=== PATIENT | male | born 1970 | race Hispanic/Latino ===

== ENCOUNTER 2019-10-05 17:53 | Inpatient (IN) | payer SELFPAY ==
[~2019-10-05] VITALS: Ht 177.8 cm; Wt 97.8 kg
[2019-10-05 18:47] LABS: BASOPHILS % 0.4 % (0.0-1.0); EOSINOPHILS # (AUTO) 0.1 (0.0-0.4); EOSINOPHILS % 2.8 % (0.0-6.0); HEMATOCRIT 33.8 % (38.2-49.6); LYMPHOCYTES # (AUTO) 0.9 (1.0-3.2); LYMPHOCYTES % 30.9 % (18.0-39.1); MEAN CORPUSCULAR HEMOGLOBIN 34.4 pg (28-32); MEAN CORPUSCULAR HGB CONC 35.5 g/dL (31-35); MEAN CORPUSCULAR VOLUME 96.8 fL (81-99); MONOCYTES # (AUTO) 0.3 (0.2-0.8); MONOCYTES % 8.9 % (4.4-11.3); NEUTROPHILS # (AUTO) 1.6 (2.1-6.9); NEUTROPHILS % 56.6 % (38.7-80.0); RED BLOOD COUNT 3.49 x10e6/uL (4.3-5.7); RED CELL DISTRIBUTION WIDTH 15.7 % (11.7-14.4)
[2019-10-05 18:57] LABS: CLARITY,URINE CLEAR (CLEAR); COLOR,URINE ORANGE (YELLOW)
[2019-10-05 18:58] LABS: BILIRUBIN,URINE SMALL (NEGATIVE); KETONES,URINE NEGATIVE (NEGATIVE); LEUKOCYTE ESTERASE ,URINE NEGATIVE (NEGATIVE); NITRITE,URINE NEGATIVE (NEGATIVE); PROTEIN,URINE DIPSTICK NEGATIVE (NEGATIVE); URINE UROBILINOGEN 1 mg/dL (0.2 - 1)
[2019-10-05 19:08] LABS: PLATELET COUNT 15 x10e3/uL (140-360)
[2019-10-05 19:11] LABS: ALANINE AMINOTRANSFERASE 30 IU/L (0-55); ALBUMIN 3.4 g/dL (3.5-5.0); ALBUMIN/GLOBULIN RATIO 0.7 (0.8-2.0); ALKALINE PHOSPHATASE 86 IU/L (40-150); ANION GAP 12.6 mmol/L (8-16); BLOOD UREA NITROGEN 7 mg/dL (7-26); BUN/CREATININE RATIO 8 (6-25); CARBON DIOXIDE 24 mmol/L (22-29); CHLORIDE 105 mmol/L (98-107); CREATININE, SERUM 0.93 mg/dL (0.72-1.25); EST GLOMERULAR FILTRATION RATE > 60 ML/MIN (60-); GLUCOSE 99 mg/dL (74-118); POTASSIUM 3.6 mmol/L (3.5-5.1); SODIUM 138 mmol/L (136-145)
[2019-10-05 19:13] LABS: BACTERIA,URINE RARE /HPF; EPITHELIAL CELLS,URINE RARE /LPF; RBC,URINE 0-5 /HPF (0-5); WBC,URINE (MAN) 0-5 /HPF (0-5)
[2019-10-05] MEDS ORDERED: SODIUM CHLORIDE 0.9% 50ML 50 ML ONE (19:55)
[2019-10-05] MEDS ORDERED: IOPAMIDOL 370 MG/ML 200 ML INFUS..BTL INJ ONE (19:55)
[2019-10-05 19:58] LABS: RBC MORPHOLOGY COMMENT NORMAL
[2019-10-05 19:59] LABS: PLATELET ESTIMATE MARKEDLY DECREASED; PLATELET MORPHOLOGY COMMENT NORMAL
--- NOTE | 2019-10-05 21:59 | Diagnostic Imaging Report ---
EXAM: CT Abdomen and Pelvis WITH contrast INDICATION: Abdominal pain, purple hernia COMPARISON: None. TECHNIQUE: Abdomen and pelvis were scanned utilizing a multidetector helical scanner from the lung base to the pubic symphysis after administration of IV contrast. Coronal and sagittal reformations were obtained. Routine protocol was performed. Scan was performed when during portal venous phase. IV CONTRAST: 100 mL of Isovue 370 ORAL CONTRAST: None COMPLICATIONS: None RADIATION DOSE: Total DLP: 643 mGy*cm Estimated effective dose: (DLP x 0.015 x size factor) mSv CTDIvol has been reviewed. It is below the limits set by the Radiation Protocol Committee (RPC). Dose modulation, iterative reconstruction, and/or weight based adjustment of the mA/kV was utilized to reduce the radiation dose to as low as reasonably achievable. FINDINGS: LINES and TUBES: None. LOWER THORAX: Multifocal groundglass opacities in the lower lungs. HEPATOBILIARY: Nodular liver contour. A few subtle hypodense nodules in the right hepatic lobe, largest is in the lateral right hepatic dome measures 1.4 cm (series 2 image 16 No biliary ductal dilation. GALLBLADDER: There are cholecystectomy clips. SPLEEN: Splenomegaly, measures up to 18.3 cm. Subtle focal hyperdensity in the inferior aspect of the spleen is likely a benign vascular malformation such as a hemangioma. Trace perisplenic ascites. PANCREAS: No focal masses or ductal dilatation. ADRENALS: No adrenal nodules KIDNEYS/URETERS: Kidneys enhance symmetrically. No hydronephrosis. No cystic or solid mass lesions. No stones. GI TRACT: Dilated loops of small bowel in the midabdomen with focal small herniation of small bowel into a 4.3 cm ventral abdominal hernia where there is a transition point, distal to this point the small bowel is collapsed. No appendicitis. PELVIC ORGANS/BLADDER: Unremarkable. LYMPH NODES: No lymphadenopathy. VESSELS: Main portal vein dilation.. PERITONEUM / RETROPERITONEUM: No free air or fluid. BONES: Degenerative changes. SOFT TISSUES: Dilated loops of small bowel in the midabdomen with focal small herniation of small bowel into a 4.3 cm ventral abdominal hernia where there is a transition point, distal to this point the small bowel is collapsed. Trace fluid within the hernia sac. IMPRESSION: 1. Findings in the lower lungs are compatible with multifocal pneumonia, likely viral. 2. Findings concerning for small bowel obstruction due to small bowel containing ventral abdominal periumbilical hernia. Strangulation is possible though no direct evidence of intestinal ischemia. 3. Hepatic cirrhosis and portal hypertension with splenomegaly and trace ascites. A few hypodense nodules in the right hepatic lobe on a background of cirrhosis are indeterminate. Recommend nonemergent liver MRI with contrast for further evaluation. Signed by: Denis Layne DO on 10/05/2019 9:55 PM
--- NOTE | 2019-10-06 01:06 | Emergency Department Note ---
History of Present Illnes History of Present Illness Chief Complaint: Abdominal Complaints History of Present Illness This is a 49 year old male arrived to the ED with abdominal pain for several days worse after living a heavy case of water bottles. 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 Any updates have been documented here. Past Medical History Recent Fever: No Clinical Suspicion of Infectio: No New/Unexplained Change in Ment: No Past Medical History: None Other Medical History: Patient states the is seeing a liver MD Past Surgical History: Cholecysctectomy Social History Smoking Cessation: Former smoker Counseling Performed: No Alcohol Use: Occasional Any Illegal Drug Use: No Other Any Pre-Existing Lines (PICC,: No Review of Systems Review of Systems Constitutional: Reports no symptoms EENTM: Reports no symptoms Cardiovascular: Reports no symptoms Respiratory: Reports no symptoms Gastrointestinal: Reports as per HPI, Reports abdominal pain, Reports nausea Genitourinary: Reports no symptoms Musculoskeletal: Reports no symptoms Integumentary: Reports no symptoms Neurological: Reports no symptoms Psychological: Reports no symptoms Endocrine: Reports no symptoms Hematological/Lymphatic: Reports no symptoms Physical Exam Related Data Allergies: Coded Allergies: No Known Allergies (Unverified , 10/05/19) Triage Vital Signs Vital Signs Date Time Temp Pulse Resp B/P (MAP) Pulse Ox O2 Delivery O2 Flow Rate FiO2 10/05/19 18:20 97.3 66 18 155/84 99 Vital signs reviewed: Yes Physical Exam CONSTITUTIONAL Constitutional: Present well-developed, Present well-nourished HENT HENT: Present normocephalic, Present atraumatic, Present oropharynx clear/moist, Present nose normal HENT L/R: Present left ext ear normal, Present right ext ear normal EYES Eyes: Reports PERRL, Reports conjunctivae normal NECK Neck: Present ROM normal PULMONARY Pulmonary: Present effort normal, Present breath sounds normal CARDIOVASCULAR Cardiovascular: Present regular rhythm, Present heart sounds normal, Present capillary refill normal, Present normal rate GASTROINTESTINAL Abdominal: Present soft, Present bowel sounds normal, Present tender, Present other (nonreducible umbilical hernia noted with superimposed cellulitis) GENITOURINARY Genitourinary: Present exam deferred SKIN Skin: Present warm, Present dry MUSCULOSKELETAL Musculoskeletal: Present ROM normal NEUROLOGICAL Neurological: Present alert, Present oriented x 3, Present no gross motor or sensory deficits PSYCHOLOGICAL Psychological: Present mood/affect normal, Present judgement normal Results Laboratory Result Diagram: 10/05/19 1835 10/05/19 1835 Laboratory Laboratory Tests Test 10/05/19 22:40 10/05/19 18:35 White Blood Count 2.82 x10e3/uL (4.8-10.8) Red Blood Count 3.49 x10e6/uL (4.3-5.7) Hemoglobin 12.0 g/dL (14.0-18.0) Hematocrit 33.8 % (38.2-49.6) Mean Corpuscular Volume 96.8 fL (81-99) Mean Corpuscular Hemoglobin 34.4 pg (28-32) Mean Corpuscular Hemoglobin Concent 35.5 g/dL (31-35) Red Cell Distribution Width 15.7 % (11.7-14.4) Platelet Count 15 x10e3/uL (140-360) Neutrophils (%) (Auto) 56.6 % (38.7-80.0) Lymphocytes (%) (Auto) 30.9 % (18.0-39.1) Monocytes (%) (Auto) 8.9 % (4.4-11.3) Eosinophils (%) (Auto) 2.8 % (0.0-6.0) Basophils (%) (Auto) 0.4 % (0.0-1.0) Neutrophils # (Auto) 1.6 (2.1-6.9) Lymphocytes # (Auto) 0.9 (1.0-3.2) Monocytes # (Auto) 0.3 (0.2-0.8) Eosinophils # (Auto) 0.1 (0.0-0.4) Basophils # (Auto) 0.0 (0.0-0.1) Absolute Immature Granulocyte (auto 0.01 x10e3/uL (0-0.1) Platelet Estimate Markedly decreased Platelet Morphology Comment Normal Red Cell Morphology Comment Normal Urine Color [place] (YELLOW) Urine Clarity Clear (CLEAR) Urine pH 6 (5 - 7) Urine Specific [place] 1.025 (1.010-1.025) Urine Protein Negative (NEGATIVE) Urine Glucose (UA) Negative (NEGATIVE) Urine Ketones Negative (NEGATIVE) Urine Blood Negative (NEGATIVE) Urine Nitrite Negative (NEGATIVE) Urine Bilirubin Small (NEGATIVE) Urine Urobilinogen 1 mg/dL (0.2 - 1) Urine Leukocyte Esterase Negative (NEGATIVE) Urine RBC 0-5 /HPF (0-5) Urine WBC 0-5 /HPF (0-5) Urine Epithelial Cells Rare /LPF (NONE) Urine Bacteria Rare /HPF (NONE) Sodium Level 138 mmol/L (136-145) Potassium Level 3.6 mmol/L (3.5-5.1) Chloride Level 105 mmol/L (98-107) Carbon Dioxide Level 24 mmol/L (22-29) Anion Gap 12.6 mmol/L (8-16) Blood Urea Nitrogen 7 mg/dL (7-26) Creatinine 0.93 mg/dL (0.72-1.25) Estimat Glomerular Filtration Rate > 60 ML/MIN (60-) BUN/Creatinine Ratio 8 (6-25) Glucose Level 99 mg/dL (74-118) Calcium Level 9.0 mg/dL (8.4-10.2) Total Bilirubin 3.3 mg/dL (0.2-1.2) Aspartate Amino Transf (AST/SGOT) 53 IU/L (5-34) Alanine Aminotransferase (ALT/SGPT) 30 IU/L (0-55) Alkaline Phosphatase 86 IU/L (40-150) Total Protein 8.0 g/dL (6.5-8.1) Albumin 3.4 g/dL (3.5-5.0) Globulin 4.6 g/dL (2.3-3.5) Albumin/Globulin Ratio 0.7 (0.8-2.0) Lab results reviewed: Yes Imaging Imaging results reviewed: Yes Impressions IMPRESSION: 1. Findings in the lower lungs are compatible with multifocal pneumonia, likely viral. 2. Findings concerning for small bowel obstruction due to small bowel containing ventral abdominal periumbilical hernia. Strangulation is possible though no direct evidence of intestinal ischemia. 3. Hepatic cirrhosis and portal hypertension with splenomegaly and trace ascites. A few hypodense nodules in the right hepatic lobe on a background of cirrhosis are indeterminate. Recommend nonemergent liver MRI with contrast for further evaluation. Assessment & Plan Medical Decision Making MDM 49-year-old male arrives to ED with abdominal pain, negative umbilical hernia that is not reducible despite attempts made by me at bedside. Patient was noted to have a small bowel obstruction, Dr. GIL consult did at 2230- patient marked on the cytopenia. Patient will require aggressive fluid resuscitation, kept nothing by mouth, possibly going to the OR tomorrow. Assessment & Plan Final Impression: (1) COVID-19 (2) SBO (small bowel obstruction) (3) Thrombocytopenia Depart Disposition: ADMITTED Last Vital Signs Date Time Temp Pulse Resp B/P (MAP) Pulse Ox O2 Delivery O2 Flow Rate FiO2 10/05/19 22:34 97.0 69 19 143/74 100 Medications in the ED Sodium Chloride 50 ml @ ud STK-MED ONCE .ROUTE ; Start 10/05/19 at 19:55; Stop 10/05/19 at 19:48; Status DC Iopamidol 74,000 mg STK-MED ONCE INJ ; Start 10/05/19 at 19:55; Stop 10/05/19 at 19:49; Status DC JAKE GRIMM, Oct 06, 2019 01:06
[2019-10-06] MEDS ORDERED: SODIUM CHLORIDE 0.9% 250ML 250 ML ONE ×2 (02:00→19:34)
[2019-10-06] MEDS ORDERED: ONDANSETRON HCL INJ 2MG/ML 2ML 2 MG/ML VIAL IV PRN ×2 (05:30→15:00)
[2019-10-06] MEDS ORDERED: MORPHINE SULFATE 2 MG/ML SYR 1ML IV PRN ×2 (05:30→13:30)
--- NOTE | 2019-10-06 11:31 | NUR ---
GAVE PACKET OF INFORMATION WITH COMMUNITY [employer]OURCES FOR ASSISTANCE WITH LOW TO NO INCOME TO PATIENT. RESOURCES THAT PATIENT MAY BE ABLE TO FOLLOW UP UPON DISCHARGE. PT EDUCATED ON EACH RESOURCE AND UNDERSTANDING HOW TO FOLLOW UP TO SEE IF QUALIFIED FOR EACH RESOURCE.
[2019-10-06] MEDS ORDERED: BACITRACIN 50,000 UNIT VIAL ONE (12:29)
[2019-10-06] MEDS ORDERED: BUPIVACAINE HCL 0.5% INJ 30 ML VIAL INJ ONE (12:29)
--- NOTE | 2019-10-06 12:58 | Consultation ---
DATE OF CONSULTATION: 10/06/2019 HISTORY OF PRESENT ILLNESS: The patient is a 49-year-old male presents with complaints of pain in the abdomen that has started after lifting yesterday. He was doing heavy lifting and developed pain with some associated nausea. He says he had a bowel movement yesterday. He says the pains persisted. He has not had similar symptoms in the past. He came to the emergency room where CT of the abdomen and pelvis revealed findings suggestive of small bowel obstruction with incarcerated umbilical hernia. PAST MEDICAL HISTORY: Significant for history of liver disease, says he has seen the liver specialists. CT also suggested cirrhosis of the liver. PAST SURGICAL HISTORY: He has had previous cholecystectomy. MEDICATIONS: There were no current medications. ALLERGIES: NO KNOWN ALLERGIES. FAMILY HISTORY: Noncontributory. SOCIAL HISTORY: The patient is a former smoker, he says he does not smoke now. Formerly heavy drinker, but says he does not drink anymore. REVIEW OF SYSTEMS: As stated above. He has had no fever, no cough, no shortness of breath. PHYSICAL EXAMINATION: GENERAL: The patient is awake and alert, in no distress. VITAL SIGNS: Normal. He is not tachycardic. HEENT: Sclerae is not icteric. NECK: Supple. No masses. LUNGS: Equal breath sounds are clear bilaterally. CARDIAC: Regular rate and rhythm with no murmur. ABDOMEN: Soft. There is tender mass in the umbilicus with some overlying discoloration. There are no signs of peritonitis. EXTREMITIES: Have no edema. There are some slight venous stasis changes. NEUROLOGIC: Grossly intact. LABORATORY DATA: White blood count 2.8. Hemoglobin and hematocrit are normal. Platelet counts only 15,000. Chemistries essentially normal. CT of the abdomen and pelvis as stated in the history of present illness. ASSESSMENT: This is a 49-year-old male, incarcerated umbilical hernia, also thrombocytopenia likely due to his liver disease. There was some concern for being COVID positive and the rapid test was positive also. However, with the patient's intestinal obstruction and incarcerated hernia, he will need surgery, the plan is scheduled for later this morning. Procedure was explained to the patient including risks, benefits and alternatives. He understands, he has had the opportunity to ask questions. Thank you for asking me to see Mr. Strong. Juanjose W MD KRYSTAL Terry/KELVIN /[id number]
[2019-10-06 13:00] LABS: INR 1.46; PROTHROMBIN TIME 18.7 seconds (11.9-14.5)
[2019-10-06] MEDS ORDERED: ACETAMINOPHEN 325 MG TAB PO PRN (13:30)
[2019-10-06] MEDS ORDERED: HYDRALAZINE HCL 20 MG/ML VIAL IV PRN (13:30)
[2019-10-06] MEDS ORDERED: LACTATED RINGER'S 1,000 ML INJ ONE (13:45)
[2019-10-06] MEDS ORDERED: LACTATED RINGER'S 1,000 ML ONE (13:53)
[2019-10-06] MEDS: CEFTRIAXONE SOD 1 GM/NS 50 ML 50 ML IV SCH (14:10)
[2019-10-06] MEDS ORDERED: GLYCOPYRROLATE INJ 0.2 MG/ML VIAL ONE (14:16)
[2019-10-06] MEDS ORDERED: SEVOFLURANE INHAL SOLN 250 ML PEN BTL ONE (14:16)
[2019-10-06] MEDS ORDERED: ROCURONIUM BROMIDE 10 MG/ML 5ML VIAL IV ONE (14:16)
[2019-10-06] MEDS ORDERED: LIDOCAINE HCL 2% LOCAL INJ 5 ML SDV VIAL INJ ONE (14:16)
[2019-10-06] MEDS ORDERED: CEFTRIAXONE SOD 1 GM VIAL ONE (14:16)
[2019-10-06] MEDS ORDERED: NEOSTIGMINE 1 MG/ML 10ML VIAL ONE (14:16)
[2019-10-06] MEDS ORDERED: SUCCINYLCHOLINE CHLORIDE 20 MG/ML 10ML VIAL ONE (14:16)
[2019-10-06] MEDS ORDERED: PROPOFOL IV EMULSION 10 MG/ML 20 ML VIAL ONE (14:16)
[2019-10-06] MEDS ORDERED: LABETALOL HCL 5 MG/ML 20ML VIAL ONE (14:16)
[2019-10-06] MEDS ORDERED: ONDANSETRON HCL INJ 2MG/ML 2ML 2 MG/ML VIAL ONE (14:16)
[2019-10-06] MEDS ORDERED: DEXAMETHASONE SOD PHOS INJ 4 MG/ML VIAL ONE ×2 (14:16→15:14)
[2019-10-06] MEDS ORDERED: HYDROCODONE/APAP 5MG-325MG TAB PO PRN (15:00)
[2019-10-06] MEDS ORDERED: MORPHINE SULFATE INJ 4 MG/ML INJ 1ML IV PRN (15:00)
[2019-10-06] MEDS ORDERED: FENTANYL CITRATE/PF 100MCG/2 ML INJ ONE (15:22)
[2019-10-06] MEDS ORDERED: EPINEPHRINE HCL 1:1000 1ML 1 MG/ML AMP ONE (15:40)
[2019-10-06] MEDS ORDERED: MEPERIDINE HCL INJ 25 MG/ML VIAL ONE (16:00)
[2019-10-06 16:30] VITALS: BP 123/74
--- NOTE | 2019-10-06 16:30 | NUR ---
Pt received from PACU at this time. Pt is aox3 and able to verbalize needs. Denies any pain at this time. Dressing to lower abdomen is intact, with old blood noted. Breaths are even and unlabored on 3L/NC. 0 s/s of acute distress noted.
[2019-10-06] MEDS: ASCORBIC ACID 500 MG TAB PO SCH (17:30)
[2019-10-06] MEDS: SODIUM CHLORIDE 0.9% 1000ML 1,000 ML IV SCH (17:30)
--- NOTE | 2019-10-06 18:48 | NUR ---
Spoke with Dr. Beltrán to get clarification on new order for platelet infusion. Received orders to redraw platelet level and call him with results.
--- NOTE | 2019-10-06 18:55 | Consultation ---
DATE OF CONSULTATION: HISTORY OF PRESENT ILLNESS: This is a 49-year-old who comes to the emergency room with abdominal pain for several days after lifting heavy cases of bottles. The patient came to the emergency room where he was admitted. The patient apparently has no past medical history or past surgical history. The patient when he first came his white count was 2.8, hemoglobin 12, hematocrit 33. His sodium 138, potassium 3.6, creatinine 0.93. His COVID-19 came back positive, so I was asked to see him. He had CAT scan of abdomen and pelvis, which showed multifocal pneumonia and small bowel obstruction due to small bowel periumbilical hernia. PHYSICAL EXAMINATION: GENERAL: Currently, alert and oriented, does not seem to be in acute distress. VITAL SIGNS: Stable, afebrile. His O2 saturation 99 on room air. HEENT: He is not icteric. NECK: Supple. CHEST: Clear. HEART: S1 and S2. ABDOMEN: Soft. IMPRESSION: 1. Small bowel obstruction, COVID-19 pneumonia. Our recommendation is Rocephin 1 g daily, Zithromax 5 mg daily. There is no need for Decadron, Lovenox at a 0.5 mg/kg q.12 hours. Surgical evaluation, n.p.o., NG tube to low intermittent suction. 2. Liver cirrhosis. 3. Portal hypertension. 4. Splenomegaly. 5. Concern about alcoholism. We will give the patient droplet and contact isolation. We will follow. MD DRAKE Salinas/KELVIN /[id number]
--- NOTE | 2019-10-06 19:30 | NUR ---
Notified Dr Beltrán regarding platelets 39. New orders received.
[2019-10-06 20:00] VITALS: BP 132/81
--- NOTE | 2019-10-06 20:10 | History and Physical ---
CHIEF COMPLAINT: Ventral abdominal hernia, abdominal pain. HISTORY OF PRESENT ILLNESS: A 49-year-old male with history of alcohol abuse, liver cirrhosis, splenomegaly secondary to his alcohol liver cirrhosis, presented to the ED after lifting some heavy boxes on yesterday, noticed some pain with nausea in the abdomen area, found to have an incarcerated hernia on arrival here to the ED. He states that the pain was pretty persistent. He has had this problem before. General Surgery evaluated the patient this morning. The patient is scheduled for the OR later this afternoon. During my evaluation, the patient was alert, awake, and oriented on examination. He did receive Jumbo platelets due to low platelet level. He was found to have COVID-19 positive. REVIEW OF SYSTEMS: Pertinent positive for abdominal pain. The rest of 14-point review of systems are reviewed with the patient and are negative. ALLERGIES: NO KNOWN DRUG ALLERGIES. HOME MEDICATIONS: None. PAST MEDICAL HISTORY: Liver cirrhosis, splenomegaly. PAST SURGICAL HISTORY: Reports, none. FAMILY HISTORY: Hypertension, diabetes. SOCIAL HISTORY: Former drinker. Said he does not drink anymore. No drugs. PHYSICAL EXAMINATION: VITAL SIGNS: Temperature is 96.9, pulse 90, respiratory rate 15, blood pressure 129/71, and pulse ox 97% on room air. GENERAL: No acute distress. Alert and oriented x3. PULMONARY: Clear to auscultation bilaterally. No wheezing, rales, or rhonchi. No crackles appreciated. CARDIOVASCULAR: Positive S1, S2. No murmurs, rubs, or gallops. ABDOMEN: Soft, nondistended, nontender to palpation. Bowel sounds present. MUSCULOSKELETAL: Strength is 5/5 throughout. No evidence of any muscle deficits on examination. No weakness appreciated. NEUROLOGICAL: Cranial nerves II through XII are grossly intact. No evidence of any neurological deficits on exam. SKIN: Intact. Warm to touch. Good cap refill. PSYCHIATRIC: Normal affect and mood. EXTREMITIES: No edema. Good range of motion throughout. LABORATORY DATA: White count 2.8, hemoglobin 12, hematocrit 33.8, and platelets was 15, now 57 after transfusion. PT 18.7, INR 1.46. Sodium 138, potassium 3.6, chloride 105, bicarb 24, anion gap of 12, BUN is 7, creatinine is 0.93, glucose 99, calcium is 9. Total bilirubin is 3.3, AST 53, ALT 30. Alk phos is 86. Total protein is 8, albumin is 3.4. Urinalysis; negative. SEROLOGY: Coronavirus was positive. DIAGNOSTIC STUDIES: CT abdomen and pelvis shows compatible with multifocal pneumonia, likely viral. Findings concerning for small bowel obstruction due to small bowel containing ventral abdominal periumbilical hernia. Strangulation is a possible to no direct evidence of intestinal ischemia. Hepatic cirrhosis and portal hypertension with splenomegaly and trace ascites. A few hypodense nodules in the right hepatic lobe is alcohol liver cirrhosis are indeterminate. He has an appointment to see a GI specialist as an outpatient. IMPRESSION: 1. Incarcerated umbilical hernia. 2. Chronic thrombocytopenia, secondary to liver cirrhosis. 3. Coronavirus positive. 4. Alcoholic liver cirrhosis with splenomegaly. PLAN: Plan at this time, the patient had received 2 units of Jumbo platelets with much improved platelets now after a stat level was 57. Coagulation also shows a PT of 18.7 and INR 1.46. He is n.p.o. for now. IV fluids for surgery later today. Dr. Robin has been consulted. In terms of his Coronavirus, I did go ahead and consult with Pulmonary and ID. I will go ahead and place him on some IV antibiotics as well. He currently looks very well, seems to be very symptomatic in nature. We will continue with same plan of care and monitor very closely with the rest of consultants. MD YORDY Castro/KELVIN /[id number]
--- NOTE | 2019-10-06 20:50 | Consultation ---
DATE OF CONSULTATION: Pulmonary Critical Care Consultation CHIEF COMPLAINT: Positive COVID test. HISTORY OF PRESENT ILLNESS: The patient is a 49-year-old man. He has a history of cirrhosis and thrombocytopenia. He came today for an elective hernia repair. He was subsequently discovered to have COVID-19 positive. He denies any cough or shortness of breath. He is not having any chest pain. He denies fevers. PAST MEDICAL HISTORY: 1. Cirrhosis. 2. Thrombocytopenia. PAST SURGICAL HISTORY: Recent hernia repair. ALLERGIES: NO KNOWN DRUG ALLERGIES. SOCIAL HISTORY: The patient is not an active smoker. He is not an active drinker. PHYSICAL EXAMINATION: VITAL SIGNS: The patient is afebrile. The vital signs are stable. HEENT: Shows no facial swelling or erythema. CARDIAC: Reveals regular rate and rhythm with normal S1 and S2. LUNGS: Auscultation of lungs reveals rhonchorous breath sounds bilaterally. There is no wheezing. ABDOMEN: Soft and nontender. There is no rebound or guarding. EXTREMITIES: Shows no leg edema or calf tenderness. There is no cyanosis or clubbing. SKIN: Shows no rashes. NEUROLOGICAL: Shows no focal abnormalities. LABORATORY DATA: Platelet count is 39, white blood cell count is 2.8, and the hemoglobin is 12. The BUN to creatinine ratio is normal. The other electrolytes are within normal limits. INR is 1.46. RADIOGRAPHIC DATA: CT scan of the abdomen and pelvis shows findings in the lower lobe compatible with multifocal pneumonia. The patient also has hepatic cirrhosis and portal hypertension. He has some splenomegaly. He also has a periumbilical hernia that had possible strangulation. This test was done preoperatively. IMPRESSION: 1. COVID-19 and viral pneumonia. 2. Status post hernia repair for strangulated hernia. 3. Cirrhosis. PLAN: 1. Wean oxygen as tolerated. 2. Since the patient is asymptomatic for COVID at this time, dexamethasone is not indicated. 3. Hold off on antibiotics for now since the patient is asymptomatic. 4. Continue postoperative care. 5. Continue current treatment for cirrhosis and thrombocytopenia. Kartik Linares MD [facility]/BLAKEL /[id number]
--- NOTE | 2019-10-06 21:05 | Operative Report ---
DATE OF PROCEDURE: 10/06/2019 SURGEON: Juanjose Terry MD PREOPERATIVE DIAGNOSES: Incarcerated umbilical hernia, small bowel obstruction. POSTOPERATIVE DIAGNOSES: Incarcerated umbilical hernia, small bowel obstruction. PROCEDURES: Repair of incarcerated umbilical hernia with release of small bowel obstruction. WATER SYSTEMS DESIGNER: None. ANESTHESIA: General endotracheal. INDICATIONS AND FINDINGS: The patient is a 49-year-old male, who presented with complaints of abdominal pain with nausea and vomiting, with pain at the site of his umbilicus. Workup revealed small bowel obstruction, secondary to incarcerated umbilical hernia. At Surgery, the patient was found to have small bowel incarcerated within the hernia. The bowel once it was freed from the hernia was found to be viable, and reduced in the peritoneal cavity. The fascial defect was about 1.5 cm, which was repaired. TECHNIQUE: After adequate general endotracheal anesthesia, the patient is in supine position, the abdomen was prepped and draped in sterile fashion with ChloraPrep solution. Transverse first incision was made inferior to the umbilicus, carried down through subcutaneous tissue. The umbilicus was dissected free from the herniated mass, herniated mass was dissected free down to the fascia, free from the fascia completely throughout circumference of the hernia defect, which was about 1.5 cm. Hernia sac was opened. There was some clear serous fluid within hernia sac, which was drained. There was also small bowel within the hernia sac, which was incarcerated in order to free the small bowel the fascial defect was extended to the left and also somewhat to the right, so the bowel could be delivered up into the wound. The bowel which appeared somewhat ischemic once it was freed from the fascial defect and not constricted anymore the bowel color improved becoming pink and was all the bowel appeared viable. There was one seromuscular tear on the anti-mesenteric border of the bowel, this was repaired with interrupted sutures of 3-0 Vicryl and the bowel was returned to the peritoneal cavity. The hernia sac was then closed with running suture of 3-0 Vicryl. Hernia sac was then reduced beneath the fascia. The fascia was then closed transversely with a running suture of #0 Prolene. Hemostasis of the wound was seen to be adequate. The wound was then infiltrated with 0.5% Marcaine. The umbilicus was sutured to the fascia using 3-0 Vicryl. The subcutaneous tissue was closed with running suture of 3-0 Vicryl. Skin was closed with lissa. Sterile dressings applied. The patient tolerated the procedure well. Estimated blood loss was 5 mL. There were no complications. All counts were correct and the patient was taken to the recovery room in satisfactory condition. MD KRYSTAL Lanza/MODL /[id number] cc: Peggy Beltrán MD
[2019-10-07] VITALS (7 sets, daily range): BP systolic 111–127; BP diastolic 62–73
[2019-10-07] MEDS: SODIUM CHLORIDE 0.9% 1000ML 1,000 ML IV SCH ×2 (04:47→20:24)
[2019-10-07 05:48] LABS: HEMATOCRIT 27.3 % (38.2-49.6); HEMOGLOBIN 10.5 g/dL (14.0-18.0); LYMPHOCYTES # (AUTO) 0.4 (1.0-3.2); MEAN CORPUSCULAR HEMOGLOBIN 38.7 pg (28-32); MEAN CORPUSCULAR HGB CONC 38.5 g/dL (31-35); MEAN CORPUSCULAR VOLUME 100.7 fL (81-99); MONOCYTES # (AUTO) 0.2 (0.2-0.8); MONOCYTES % 6.8 % (4.4-11.3); NEUTROPHILS # (AUTO) 2.9 (2.1-6.9); NEUTROPHILS % 81.9 % (38.7-80.0); PLATELET COUNT 50 x10e3/uL (140-360); RED BLOOD COUNT 2.71 x10e6/uL (4.3-5.7); RED CELL DISTRIBUTION WIDTH 15.3 % (11.7-14.4)
[2019-10-07 06:37] LABS: ALANINE AMINOTRANSFERASE 25 IU/L (0-55); ALBUMIN 2.9 g/dL (3.5-5.0); ALBUMIN/GLOBULIN RATIO 0.7 (0.8-2.0); ALKALINE PHOSPHATASE 67 IU/L (40-150); ANION GAP 11.5 mmol/L (8-16); BLOOD UREA NITROGEN 8 mg/dL (7-26); BUN/CREATININE RATIO 10 (6-25); CALCIUM 8.4 mg/dL (8.4-10.2); CARBON DIOXIDE 24 mmol/L (22-29); CHLORIDE 109 mmol/L (98-107); EST GLOMERULAR FILTRATION RATE > 60 ML/MIN (60-); GLUCOSE 138 mg/dL (74-118); POTASSIUM 3.5 mmol/L (3.5-5.1); SODIUM 141 mmol/L (136-145)
[2019-10-07] MEDS: ASCORBIC ACID 500 MG TAB PO SCH ×2 (07:59→15:22)
[2019-10-07 08:20] LABS: PLATELET ESTIMATE MODERATELY DECREASED; PLATELET MORPHOLOGY COMMENT FEW EDTA CLUMPING
[2019-10-07 08:21] LABS: ANISOCYTOSIS SLIGHT; OVALOCYTES FEW; TEAR DROP CELLS FEW
[2019-10-07 08:22] LABS: RBC MORPHOLOGY COMMENT NORMAL
--- NOTE | 2019-10-07 13:59 | Progress Note ---
DATE: 10/07/2019 Medicine Progress Note SUBJECTIVE: The patient underwent umbilical hernia repair yesterday. He is currently doing well with no complaints. No overnight events. OBJECTIVE: VITAL SIGNS: He is afebrile, normotensive. Respiratory rate is good. He is on room air actually. GENERAL: Not in acute distress. Alert and oriented x3. Cooperative on examination. HEENT: Head is normocephalic and atraumatic. Eyes; pupils are reactive to light bilaterally. Extraocular movements intact bilaterally. Throat; no evidence of erythema or exudates in the posterior pharynx. Has poor dentition. NECK: Supple. Good range of motion. PULMONARY: Clear to auscultation bilaterally. No wheezing, no rales, no rhonchi, no crackles appreciated. CARDIOVASCULAR: Positive S1 and S2. No murmurs, rubs, or gallops appreciated. ABDOMEN: Soft, nondistended, and nontender to palpation. Bowel sounds present. SKIN: Intact, warm to touch. Good cap refill. PSYCHIATRIC: Normal affect and mood. EXTREMITIES: No edema. Good range of motion throughout. LABORATORY DATA: White count 3.5, hemoglobin 10.5, hematocrit is 27, and platelets of 50. PT 18. INR 1.46. Chemistry; sodium 141, potassium 3.5, chloride 109, bicarb 24, anion gap of 11, BUN is 8, creatinine is 0.8, glucose 138, calcium is 8.4, AST 35, ALT 25, alkaline phosphatase 67, total protein is 7, albumin is 2.9. IMPRESSION: 1. Status post incarcerated umbilical hernia repair with release of small-bowel obstruction, performed on 10/06/2019. 2. COVID-19 pneumonia. 3. Alcoholic liver cirrhosis with splenomegaly. 4. Chronic thrombocytopenia, secondary to liver cirrhosis. PLAN: At this time, the patient is on a full liquid diet. Pain is controlled. His labs reviewed. This is likely his baseline. From a Coronavirus standpoint, Pulmonary, and ID cleared the patient for discharge. Awaiting General Surgery, likely discharge tomorrow. Continue same plan of care. Discussed with nursing staff. MD YORDY Castro/MODDerrell /[id number]
[2019-10-07] MEDS: CEFTRIAXONE SOD 1 GM/NS 50 ML 50 ML IV SCH (15:22)
--- NOTE | 2019-10-07 16:53 | NUR ---
Nutrition Screen Note RD Recommendation for Physician: - As feasible, ADAT to goal of Low Sodium GI Soft diet Plan of Care: RD following, monitoring for tolerance and adequacy Nutrition reason for involvement: Nutrition risk trigger Primary Diagnose(s): SBO, thrombocytopenia, incarcerated hernia, + Covid-19 PMH: liver cirrhosis, splenomegaly Ht: 70 in Wt: 217 lb BMI: 31.1 kg/m2 IBW: [address] Assessment: 10/06: 49 YOM admitted for SBO and thrombocytopenia found to have an incarcerated hernia and Covid-19. Pt evaluated today per SMT screen. Attempted to call pt on room phone, no answer- unable to obtain hx at this time. No reported wt loss on admit per H&P. Pt tolerating CLD and having BMs s/p hernia repair. Labs and meds reviewed. Chart reviewed. Will continue to monitor. Current Diet: Clear liquids x day 1 Malnutrition Evaluation (10/07/19) The patient does not meet criteria for a specified degree of malnutrition at this time. Will re-evaluate at follow-up as appropriate. Unable to assess 2/2 current isolation protocol. Diet Education Needs Assessment: Diet education not indicated currently, pt on transitional diet. Diet tolerance: tolerating CLD Nutrition Care Level: low Signed: Antoinette Mckee RD, LD, [facility]
--- NOTE | 2019-10-07 19:46 | Progress Note ---
DATE: SUBJECTIVE: The patient has no new complaints. He does not complain of any headache or neck pain. He is not complaining of cough or dyspnea. PHYSICAL EXAMINATION: VITAL SIGNS: The patient is afebrile. The blood pressure is 118/63 and saturation is 100%. HEENT: Shows no facial swelling or erythema. CARDIAC: Reveals regular rate and rhythm with normal S1 and S2. LUNGS: Auscultation of lungs reveals decreased breath sounds at the bases. There is no wheezing. ABDOMEN: Soft and nontender. There is no rebound or guarding. EXTREMITIES: Shows no leg edema or calf tenderness. There is no cyanosis or clubbing. SKIN: Shows no rashes. NEUROLOGICAL: Shows no focal abnormalities. LABORATORY DATA: Platelet count is 50 and hemoglobin is 10.5. Electrolytes are within normal limits. IMPRESSION: 1. COVID-19 and viral pneumonia. 2. Status post hernia repair for strangulated hernia. 3. Cirrhosis. 4. Thrombocytopenia. 5. Anemia, unspecified. PLAN: 1. The patient remains asymptomatic for COVID at this time. No medical treatment is indicated unless he develops symptoms. 2. Continue current regimen for cirrhosis. 3. Await clearance from General Surgery prior to discharge. Kartik Linares MD [facility]/MODL /[id number]
[2019-10-08] VITALS: BP 106/66
[2019-10-08 04:00] VITALS: BP 118/64
[2019-10-08 06:00] LABS: EOSINOPHILS % 0.5 % (0.0-6.0); HEMATOCRIT 26.2 % (38.2-49.6); LYMPHOCYTES # (AUTO) 0.8 (1.0-3.2); LYMPHOCYTES % 18.5 % (18.0-39.1); MEAN CORPUSCULAR HEMOGLOBIN 37.6 pg (28-32); MEAN CORPUSCULAR HGB CONC 38.2 g/dL (31-35); MEAN CORPUSCULAR VOLUME 98.5 fL (81-99); MONOCYTES # (AUTO) 0.4 (0.2-0.8); MONOCYTES % 8.5 % (4.4-11.3); NEUTROPHILS # (AUTO) 3.1 (2.1-6.9); NEUTROPHILS % 71.8 % (38.7-80.0); RED BLOOD COUNT 2.66 x10e6/uL (4.3-5.7); RED CELL DISTRIBUTION WIDTH 15.3 % (11.7-14.4)
[2019-10-08 06:12] LABS: ANION GAP 10.4 mmol/L (8-16); BLOOD UREA NITROGEN 7 mg/dL (7-26); BUN/CREATININE RATIO 10 (6-25); CARBON DIOXIDE 26 mmol/L (22-29); CHLORIDE 110 mmol/L (98-107); CREATININE, SERUM 0.68 mg/dL (0.72-1.25); EST GLOMERULAR FILTRATION RATE > 60 ML/MIN (60-); GLUCOSE 107 mg/dL (74-118); POTASSIUM 3.4 mmol/L (3.5-5.1); SODIUM 143 mmol/L (136-145)
[2019-10-08 06:41] LABS: PLATELET COUNT 49 x10e3/uL (140-360)
--- NOTE | 2019-10-08 06:45 | NUR ---
Left message for Dr Beltrán for lab alert: Platelets 49. Also left message for potassium 3.4. Awaiting call back.
--- NOTE | 2019-10-08 07:00 | NUR ---
RECEIVED BEDSIDE SHIFT REPORT FROM MEDICAL ASSISTANT RN. PT DENIES NEEDS AT THIS TIME.
[2019-10-08 08:22] VITALS: BP 125/71
[2019-10-08 08:27] VITALS: BP 125/71
[2019-10-08] MEDS: ASCORBIC ACID 500 MG TAB PO SCH ×2 (08:43→18:05)
[2019-10-08 12:17] VITALS: BP 119/72
[2019-10-08] MEDS: CEFTRIAXONE SOD 1 GM/NS 50 ML 50 ML IV SCH (13:39)
[2019-10-08 16:00] VITALS: BP 119/73
[2019-10-08] MEDS: SODIUM CHLORIDE 0.9% 1000ML 1,000 ML IV SCH (16:26)
--- NOTE | 2019-10-08 16:40 | Progress Note ---
DATE: SUBJECTIVE: The patient is still not having cough. He has no fever or dyspnea. PHYSICAL EXAMINATION: VITAL SIGNS: The blood pressure is 119/72 and the pulse is 66. Saturation is 98%. HEENT: Shows no facial swelling or erythema. CARDIAC: Reveals regular rate and rhythm with normal S1 and S2. LUNGS: Auscultation of lungs reveals clear breath sounds bilaterally. There is no wheezing. ABDOMEN: Soft and nontender. There is no rebound or guarding. EXTREMITIES: Shows no leg edema or calf tenderness. There is no cyanosis or clubbing. SKIN: Shows no rashes. NEUROLOGICAL: Shows no focal abnormalities. LABORATORY DATA: White blood cell count is 4.3 and the hemoglobin is 10. The platelet count is 49. The BUN to creatinine ratio is 7 to 0.68 and the potassium is 3.4. IMPRESSION: 1. COVID-19 and viral pneumonia. 2. Status post hernia repair for a strangulated hernia. 3. Cirrhosis. 4. Thrombocytopenia. PLAN: 1. The patient remains asymptomatic from a COVID perspective at this time. 2. Await clearance from General Surgery prior to discharge. Kartik Linares MD [facility]/MODL /[id number]
[2019-10-08] MEDS ORDERED: ULTRAM50 MG PO (16:44)
[2019-10-08] MEDS ORDERED: LACTULOSE20 GM/30 M PO (16:45)
--- NOTE | 2019-10-08 17:35 | Discharge Summary ---
FINAL DISCHARGE DIAGNOSES: 1. Status post incarcerated umbilical hernia repair with release of small-bowel obstruction performed on 10/06/2019, by Dr. Robin, General Surgeon. 2. COVID-19 pneumonia-asymptomatic. 3. Alcoholic liver cirrhosis with splenomegaly. 4. Chronic thrombocytopenia, secondary to liver cirrhosis. CONSULTANTS: General Surgery, ID, Pulmonary. PHYSICAL EXAMINATION: VITAL SIGNS: Temperature is 98, pulse 66, respirations is 14, blood pressure 119/72, and pulse ox 98% on room air. LABORATORY DATA: Labs show white count 4, hemoglobin 10, hematocrit 26, and platelets of 49, chronic. Chemistry; sodium 143, potassium 3.4, replaced; chloride 110, bicarb 26, anion gap of 10, BUN is 7, creatinine is 0.68, calcium is 8. Total bilirubin is 3.2, AST 35, ALT 25, alkaline phosphatase 67, total protein 7. Coronavirus was positive. IMAGING STUDIES: CT abdomen and pelvis shows multifocal pneumonia, viral in nature. Small bowel obstruction due to small bowel containing ventral abdominal periumbilical hernia. Hepatic cirrhosis noted with portal hypertension and splenomegaly with trace ascites noted. He also has few hypodense nodules in the right hepatic lobe in the background of cirrhosis are indeterminate. He does have an appointment to see his outpatient GI specialist as well he reports to me. I reported to him that this is very important to follow up on all of these findings found on these imaging studies and he verbalized understanding. HOSPITAL COURSE: A 49-year-old male, comes into the ED with complaints of abdominal pain, found to have a periumbilical hernia, needing prompt evaluation and surgical intervention. The patient underwent status post incarcerated umbilical hernia repair with release of small-bowel obstruction on 10/06/2019, by Dr. Robin, General Surgery. The patient did well postprocedurally with no complaints. Pain was well controlled. In fact, he was using very little pain medications. The patient was ambulating with no issues. He was advised with no heavy lifting until he follows up with General Surgery in about 2 weeks' time in his office. The patient otherwise was doing well from that standpoint. He was found to have COVID-19 on general screening. The patient is asymptomatic. He has no cough. No congestion. No fever. He is not on oxygen. He is on room air. I did consult with Pulmonary and ID, they recommended the patient to be discharged to home for now and close followup as an outpatient in the office for repeat COVID-19 testing. On discharge, the patient was doing well, back to normal baseline with no complaints. On the day of discharge, vital signs were stable, labs were reviewed and stable. The patient is seen and evaluated, and examined thoroughly on the day of discharge. No other complaints. The patient verbalized understanding and agrees to plan of care to follow up accordingly as an outpatient with the primary care physician in 1 week, General Surgery in about 10 days for further evaluation and management, and postop followup. The patient verbalized understanding and agrees to plan of care. The patient has been cleared for discharge by all consultants. MEDICATIONS: See med reconciliation form. DISPOSITION: Home. CONDITION: Stable. DIET: Heart healthy. In the event of worsening symptoms, the patient was advised to come back to the ED for further evaluation. Discharge summary took greater than 35 minutes. MD YORDY Castro/KELVIN /[id number]
--- NOTE | 2019-10-09 18:06 | Progress Note ---
DATE: SUBJECTIVE: Mr. Strong is doing well. He underwent medical hernia repair, doing well. No complaints. REVIEW OF SYSTEMS: HEENT: Negative. PULMONARY: Negative. CARDIAC: Negative. PHYSICAL EXAMINATION: GENERAL: He is currently alert and oriented. VITAL SIGNS: Stable, currently afebrile. HEENT: He is not icteric. NECK: Supple. CHEST: Clear. LABORATORY DATA: Platelets are low, but slowly coming up to 50. Sodium 141, potassium 3.5, creatinine 0.8. IMPRESSION: 1. COVID-19 on admission, clinically doing well, asymptomatic, no need for treatment. Continue with droplet isolation. 2. Splenomegaly, liver cirrhosis and thrombocytopenia. 3. Small bowel obstruction, status post surgery. From Infectious Disease point of view, the patient can be discharged once he is fit by surgery, can discontinue Rocephin, as he clinically looks good. MD DRAKE Salinas/KELVIN /[id number]
== END 2019-10-08 18:35 | disposition home or self-care (01) | DRG 329 ==
LOC: ER 18:04 → ERHOLD 22:21 → UNDOADMIN 22:21 → ERHOLD 10-06 01:47 → UNDOADMIN 10-06 01:47 → OR 10-06 13:07 → IMCU 10-06 16:59
PROVIDERS: ADMIT Surgery; ATTEND Surgery
PROC: 0DN80ZZ Release Small Intestine, Open Approach (ICD-10-PCS; 2019-10-06)
PROC: 30233R1 Transfusion of Nonautologous Platelets into Peripheral Vein, Percutaneous Approach (ICD-10-PCS; 2019-10-06)
PROC: 8E0ZXY6 Isolation (ICD-10-PCS; 2019-10-06)
PROC: 0DQ80ZZ Repair Small Intestine, Open Approach (ICD-10-PCS; 2019-10-06)
PROC: 0WQF0ZZ Repair Abdominal Wall, Open Approach (ICD-10-PCS; principal; 2019-10-06 11:30)
DX: K43.6 Other and unspecified ventral hernia with obstruction, without gangrene (principal); U07.1 COVID-19; J12.9 Viral pneumonia, unspecified; K76.6 Portal hypertension; R16.1 Splenomegaly, not elsewhere classified; D69.59 Other secondary thrombocytopenia; K70.31 Alcoholic cirrhosis of liver with ascites; F10.20 Alcohol dependence, uncomplicated
CPT/HCPCS: 36415; 74177; 80048; 80053; 81001; 85025; 85049; 85610; 86850; 86870; 86880; 86900; 86905; 86945; 93005; 99001; 99284; J0171; J0330; J0696; J1100; J2001; J2175; J2270; J2405; J2710; J3010; J7030; J7050; J7121; P9034; Q9967; U0002

== ENCOUNTER 2019-11-24 11:39 | Inpatient (IN) | payer SELFPAY ==
[~2019-11-24] VITALS: Ht 177.8 cm; Wt 88.9 kg
[~2019-11-24 11:39] MED LIST: LACTULOSE20 GM/30 M PO; ULTRAM50 MG PO
[2019-11-24] MEDS ORDERED: ONDANSETRON HCL INJ 2MG/ML 2ML 2 MG/ML VIAL IV STA (12:26)
[2019-11-24] MEDS ORDERED: SODIUM CHLORIDE 0.9% 1000ML 1,000 ML IV STA (12:26)
[2019-11-24] MEDS ORDERED: PANTOPRAZOLE 40 MG 10ML VIAL IV STA (12:26)
--- OUTSIDE RECORDS SUMMARY | 2019-11-24 12:37 | XMS REPORT | Clinical Summary ---
Author Author [facility] Address Unknown Phone Unavailable Care Team Providers Care Telesales Supervisor Name Role Phone PCP Unavailable Allergies Not on File Medications Not on file Active Problems Not on file Social History Date Tobacco Use Types Packs/Day Years Used Never Assessed Sex Assigned at Date Recorded Not on file Industry Job Start Date Occupation Not on file Not on file Not on file Travel End Travel History Travel Start No recent travel history available. Last Filed Vital Signs Not on file Plan of Treatment Not on file Results Not on fileafter 11/23/2018
--- OUTSIDE RECORDS SUMMARY | 2019-11-24 12:37 | XMS REPORT | Continuity of Care Document ---
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 Role Phone NO, PCP PCP Unavailable Phu GRIMM Attphys Unavailable Payers Payer Name Policy Type Policy Number Effective Date Expiration Date S jazmin Covid 19 Hrsa Uninsured [id number] C [facility] Problems Condition Name Condition Details Condition Category Status Onset Date Resolution Date Last Treatment Date Treating Clinician Comments Source Small bowel obstruction Problem Active [facility] Thrombocytopenia Problem Active [facility] Infection due to severe acute respiratory syndrome coronavir us 2 (SARS-CoV-2) Problem Active [facility] Allergies, Adverse Reactions, Alerts This patient has no known allergies or adverse reactions. Social History Social Habit Start Date Stop Date Quantity Comments Source Sex Assigned At [facility] Medications Ordered Medication Name Filled Medication Name Start Date Stop Da te Current Medication? Ordering Clinician Indication Dosage Frequency Signature (SIG) Comments Components Source Lactulose Lactulose Yes 30 Twice A Day [facility] Tramadol Hcl (Ultram) 50 Mg TABLET Tramadol Hcl (Ultram) 50 Mg TABLET Yes 50 Every 8 Hours as needed for Moderate Pain (4-6) [facility] Vital Signs Vital Name Observation Time Observation Value Comments Source Body Temperature 2019-10-08 16:00:00 97.9 [degF] [facility] Weight 2019-10-08 09:00:00 215.56 [lb_av] [facility] BMI (Body Mass Index) 2019-10-08 09:00:00 30.9 kg/m2 [facility] Procedures Procedure Date / Time Performed Performing Clinician Sourc e Computed tomography of abdomen and pelvis with contrast 00:00:00 [facility] Plan of Care Planned Activity Planned Date Details Comments Source Instructions Abdominal Pain - Adult [facility] Instructions Constipation - Adult [facility] Encounters Start Date/Time End Date/Time Encounter Type Admission Type Attendi [facility] Facility Care Department Encounter ID Source 2019-10-06 16:59:00 2019-10-08 18:35:00 Discharged Inpatient 1 JAKE GRIMM [facility] [id number] [facility] 2019-09-10 13:18:00 2019-09-10 13:18:00 Emergency E [id number] [facility] Results Test Description Test Time Test Comments Results Result Comments Source Blood leukocytes automated count (number/volume) 2019-10-08 05:30:00 Test Item White Blood Count (test code = 6690-2) 4.33 4.8-10.8 [facility] automated count (number/volume)2019-10-08 05:30:00* Test Item Value Reference Range Interpretation Comments Red Blood Count (test code = 789-8) 2.66 4.3-5.7 [facility]Blood hemoglobin measurement (moles/volume)2019-10-08 05:30:00* Test Item Value Reference Range Interpretation Comments Hemoglobin (test code = 09143-0) 10.0 14.0-18.0 [facility] CenterAutomated blood hematocrit (volume fraction)2019-10-08 05:30:00* Test Item Value Reference Range Interpretation Comments Hematocrit (test code = 4544-3) 26.2 38.2-49.6 [facility] CenterAutomated erythrocyte mean corpuscular smlssc9460-29-04 05:30:00* Test Item Value Reference Range Interpretation Comments Mean Corpuscular Volume (test code = 787-2) 98.5 81-99 [facility] CenterAutomated erythrocyte mean corpuscular hemoglobin (mass per erythrocyte)2019-10-08 05:30:00* Test Item Value Reference Range Interpretation Comments Mean Corpuscular Hemoglobin (test code = 785-6) 37.6 28-32 [facility] CenterAutomated erythrocyte mean corpuscular hemoglobin concentration measurement (mass/volume)2019-10-08 05:30:00* Test Item Value Reference Range Interpretation Comments Mean Corpuscular Hemoglobin Concent (test code = 786-4) 38.2 31-35 [facility] CenterRDW YsuVp-Kxo8295-53-15 05:30:00* Test Item Value Reference Range Interpretation Comments Red Cell Distribution Width (test code = 18280-1) 15.3 11.7 -14.4 [facility] CenterAutomated blood platelet count (count/volume)2019-10-08 05:30:00* Test Item Value Reference Range Interpretation Comments Platelet Count (test code = 777-3) 49 140-360 Results repeated and called to Yina Wise at 0637 on 10/08/19 by Kacey Arita . Read back and verified.[facility] CenterAutformerly [facility] segmented neutrophil count as percentage of total afhowusjwg4013-23-51 05:30:00 * Test Item Value Reference Range Interpretation Comments Neutrophils (%) (Auto) (test code = 08662-0) 71.8 38.7-80.0 [facility]Aut[facility] lymphocyte count as percentage ot total ytbidahret1275-18-44 05:30:00* Test Item Value Reference Range Interpretation Comments Lymphocytes (%) (Auto) (test code = 736-9) 18.5 18.0-39.1 [facility] CenterAutomated blood monocyte count as percentage of total egfbvxgddi6337-30-89 05:30:00* Test Item Value Reference Range Interpretation Comments Monocytes (%) (Auto) (test code = 5905-5) 8.5 4.4-11.3 [facility] CenterAutomated blood eosinophil count as percentage of total oduwvqjhqw2966-29-73 05:30:00* Test Item Value Reference Range Interpretation Comments Eosinophils (%) (Auto) (test code = 713-8) 0.5 0.0-6.0 [facility] CenterAutomated blood basophil count as percentage of total njrzfpndle4578-04-12 05:30:00* Test Item Value Reference Range Interpretation Comments Basophils (%) (Auto) (test code = 706-2) 0.0 0.0-1.0 [facility] CenterFluoroscopic procedure less than one hour ccdkmeks7246-80-94 05:30:00* Test Item Value Reference Range Interpretation Comments IM GRANULOCYTES % (test code = IM GRANULOCYTES %) 0.7 0.0- 1.0 [facility] CenterAutomated blood neutrophil count 2019-10-08 05:30:00* Test Item Value Reference Range Interpretation Comments Neutrophils # (Auto) (test code = 751-8) 3.1 2.1-6.9 [facility] CenterBlood lymphocytes count (number/volume) 2019-10-08 05:30:00* Test Item Value Reference Range Interpretation Comments Lymphocytes # (Auto) (test code = 98268-2) 0.8 1.0-3.2 [facility] CenterBlood monocytes automated count (number/volume)2019-10-08 05:30:00* Test Item Value Reference Range Interpretation Comments Monocytes # (Auto) (test code = 742-7) 0.4 0.2-0.8 [facility] CenterAutomated blood eosinophil count 2019-10-08 05:30:00* Test Item Value Reference Range Interpretation Comments Eosinophils # (Auto) (test code = 711-2) 0.0 0.0-0.4 [facility] CenterAutomated blood basophil count (count/volume)2019-10-08 05:30:00* Test Item Value Reference Range Interpretation Comments Basophils # (Auto) (test code = 704-7) 0.0 0.0-0.1 [facility] CenterFluoroscopic procedure less than one hour cxtthizp0495-78-31 05:30:00* Test Item Value Reference Range Interpretation Comments Absolute Immature Granulocyte (auto (eric t code = Absolute Immature Granulocyte (auto) 0.03 0-0.1 [facility]uda[facility]um or plasma sodium measurement (moles/volume)2019-10-08 05:30:00* Test Item Value Reference Range Interpretation Comments Sodium Level (test code = 2951-2) 143 136-145 [facility]udaerum or plasma potassium measurement (moles/volume)2019-10-08 05:30:00* Test Item Value Reference Range Interpretation Comments Potassium Level (test code = 2823-3) 3.4 3.5-5.1 [facility]udaerum or plasma chloride measurement (moles/volume)2019-10-08 05:30:00* Test Item Value Reference Range Interpretation Comments Chloride Level (test code = 2075-0) 110 98-107 [facility] Budaerum or plasma carbon dioxide, total measurement (moles/volume)2019-10-08 05:30:00* Test Item Value Reference Range Interpretation Comments Carbon Dioxide Level (test code = 2028-9) 26 22-29 [facility] Budaerum or plasma anion rgl8821-29-17 05:30:00* Test Item Value Reference Range Interpretation Comments Anion Gap (test code = 82076-5) 10.4 8-16 [facility]udaerum or plasma urea nitrogen measurement (mass/volume)2019-10-08 05:30:00* Test Item Value Reference Range Interpretation Comments Blood Urea Nitrogen (test code = 3094-0) 7 7-26 [facility]udaerum or plasma creatinine measurement (mass/volume)2019-10-08 05:30:00* Test Item Value Reference Range Interpretation Comments Creatinine (test code = 2160-0) 0.68 0.72-1.25 [facility]udaerum or plasma urea nitrogen/creatinine mass jtzak4167-68-93 05:30:00* Test Item Value Reference Range Interpretation Comments BUN/Creatinine Ratio (test code = 3097-3) 10 6-25 [facility] CenterEstimated glomerular filtration rate (GFR) rinehbwiccgvo4805-35-21 05:30:00* Test Item Value Reference Range Interpretation Comments Estimat Glomerular Filtration Rate (test code = 072178471) > 60 >60 Ranges were taken from the National Kidney Disease Education Program and the [facility] Foundation literature.Reference ranges:60 or greater: Lvpsjb53-89 ( for 3 consecutive months): Chronic kidney disease 15 or less: Kidney failureShannon Medical CenterGlucose igdjbattjbh2571-96-01 05:30:00* Test Item Value Reference Range Interpretation Comments Glucose Level (test code = NPC1602) 107 74-118 [facility]udaerum or plasma calcium measurement (mass/volume)2019-10-08 05:30:00* Test Item Value Reference Range Interpretation Comments Calcium Level (test code = 69391-0) 8.0 8.4-10.2 [facility] CenterBlood platelets count by estimate (number/volume)2019-10-07 05:25:00* Test Item Value Reference Range Interpretation Comments Platelet Estimate (test code = 56746-9) MODERATELY DECREASED [facility] CenterPlatelet zefucwwdve6960-90-14 05:25:00* Test Item Value Reference Range Interpretation Comments Platelet Morphology Comment (test code = 27775-9) FEW EDTA CLUMPING [facility] CenterBlood anisocytosis detection by light xbuljfqaod5354-91-75 05:25:00* Test Item Value Reference Range Interpretation Comments Anisocytosis (test code = 702-1) SLIGHT [facility] CenterBlood dacrocytes detection by light ntaktnwqkv2857-75-42 05:25:00* Test Item Value Reference Range Interpretation Comments Tear Drop Cells (test code = 7791-7) FEW [facility] CenterBlood ovalocytes detection by light tvauvcuwsc4823-88-81 05:25:00* Test Item Value Reference Range Interpretation Comments Ovalocytes (test code = 774-0) FEW [facility] CenterRBC ihwfjbcuwm3960-03-90 05:25:00* Test Item Value Reference Range Interpretation Comments Red Cell Morphology Comment (test code = 6742-1) NORMAL [facility]udaerum or plasma total bilirubin measurement (mass/volume)2019-10-07 05:25:00* Test Item Value Reference Range Interpretation Comments Total Bilirubin (test code = 1975-2) 3.2 0.2-1.2 [facility] CenterFluoroscopic procedure less than one hour tniuhodg5355-97-94 05:25:00* Test Item Value Reference Range Interpretation Comments Aspartate Amino Transf (AST/SGOT) (test code = Aspartate Amino Transf (AST/SGOT)) 35 5-34 [facility] Budaerum or plasma alanine aminotransferase measurement (enzymatic activity/volume)2019-10-07 05:25:00* Test Item Value Reference Range Interpretation Comments Alanine Aminotransferase (ALT/SGPT) (test code = 1742-6) 25 0-55 [facility] Budaerum or plasma protein measurement (mass/volume)2019-10-07 05:25:00* Test Item Value Reference Range Interpretation Comments Total Protein (test code = 2885-2) 7.0 6.5-8.1 [facility]udaerum or plasma albumin measurement (mass/volume)2019-10-07 05:25:00* Test Item Value Reference Range Interpretation Comments Albumin (test code = 1751-7) 2.9 3.5-5.0 [facility] CenterPlasma globulin measurement (mass/volume) 2019-10-07 05:25:00* Test Item Value Reference Range Interpretation Comments Globulin (test code = 50490-3) 4.1 2.3-3.5 [facility]udaerum or plasma albumin/globulin mass qzmmi2085-43-88 05:25:00* Test Item Value Reference Range Interpretation Comments Albumin/Globulin Ratio (test code = 1759-0) 0.7 0.8-2.0 [facility]udaerum or plasma alkaline phosphatase measurement (enzymatic activity/volume)2019-10-07 05:25:00* Test Item Value Reference Range Interpretation Comments Alkaline Phosphatase (test code = 6768-6) 67 40-150 [facility] CenterProthrombin time (PT) in platelet poor plasma by coagulation citfm7498-06-37 12:26:00* Test Item Value Reference Range Interpretation Comments Prothrombin Time (test code = 5902-2) 18.7 11.9-14.5 [facility] CenterINR in Platelet poor plasma by Coagulation smmfh8722-98-06 12:26:00* Test Item Value Reference Range Interpretation Comments Prothromb Time International Ratio (test code = 6301-6) 1.46 Oral Anticoagulant Therapy INR Values:1. Low Intensity Therapy 1.5 - 2.02 . Moderate Intensity Therapy 2.0 - 3.03. High Intensity Therapy(1) 2.5 - 3. 54. High Intensity Therapy(2) 3.0 - 4.05. Panic Value INR > 5.0 [facility] CenterFluoroscopic procedure less than one hour nmchigui1428-00-71 22:40:00* Test Item Value Reference Range Interpretation Comments Coronavirus (PCR) (test code = Coronavirus (PCR)) DETECTED NOTD ETECTED SARS-COV2/RT-PCRResults are for the detection of SARS-COV-2 RNA. The SARS-COV-2 RNA is generally detectable in nasopharyngeal swab specimens during the acute ph ase of infection. Positive results are indicitive of active infection with SARS- COV-2; clinical correlation with patient history and other diagnostic informatio n is necessary to determine patient infection status. Positive results do not ru le out bacterial infection or co-infection with other viruses. The agent detecte d may not be the definite cause of the disease.The limit of detection for this a ssay is 250 copies/mLThe SARS-CoV-2 test is a rapid, real-time RT-PCR test inten ded for the qualitative detection of nucleic acid from SARS-CoV-2 in nasopharyng eal swab specimen collected from individuals suspected of COVID-19 by their [facility] provider. This test has not been Food and Drug Administration (FDA) clear ed or approved and has been authorized by FDA under an Emergency Use Authorizati on (EUA). This EUA will be effective until the declaration that circumstances ex ist justifying the authorization of the emergency use of in vitro diagnostic eric t for detection and or diagnosis of COVID-19 is terminated under section 564(b) of the Act, or the the EUA is revoked under 564(g) of the ACT.Testing performed by [facility] [place] [id number] Medical CenterCT ABDOMEN/PELVIS I3073-04-04 21:47:00 [place] [address] Patient Name: FIONA GREEN MR #: [id number] : 1970 Age/Sex: 49/M Req #: [id number] Adm Physician: Ordered by: JAKE GRIMM DO Report #: [id number] Location: ER R o/Bed: Procedure: [id number] CT/CT ABD OMEN/PELVIS W Exam Date: 10/05/19 Exam Time: 2014 REPORT STATUS: Signed EXAM: CT Abd omen and Pelvis WITH contrast INDICATION: Abdominal pain, purple hernia COMPARISON: None. TECHNIQUE: Abdomen and pelvis were scanned utilizing a m PayTouchtector helical scanner from the lung base to the pubic symphysis after a dministration of IV contrast. Coronal and sagittal reformations were obtained. Routine protocol was performed. Scan was performed when during portal venous phase. IV CONTRAST: 100 mL of Isovue 370 ORAL CONTRAST: None COMPLICATIONS: None RADIATION DOSE: Total DLP: 643 m Gy*cm Estimated effective dose: (DLP x 0.015 x size factor) mSv CT DIvol has been reviewed. It is below the limits set by the Radiation Protocol Committee (RPC). Dose modulation, iterative reconstruction, and/or weight based adjustment of the mA/kV was utilized to reduce the radiation dose to as low as reasonably achievable. FINDINGS: LINES and TUBES: None. LOWER THORAX: Multifocal groundglass opacities in the lower lungs. H EPATOBILIARY: Nodular liver contour. A few subtle hypodense nodules in the ri ght hepatic lobe, largest is in the lateral right hepatic dome measures 1.4 cm (series 2 image 16 No biliary ductal dilation. GALLBLADDER: There are cho lecystectomy clips. SPLEEN: Splenomegaly, measures up to 18.3 cm. Subt le focal hyperdensity in the inferior aspect of the spleen is likely a benign vascular malformation such as a hemangioma. Trace perisplenic ascites. PA NCREAS: No focal masses or ductal dilatation. ADRENALS: No adrenal nodule s KIDNEYS/URETERS: Kidneys enhance symmetrically. No hydronephrosis. N o cystic or solid mass lesions. No stones. GI TRACT: Dilated loops of small bowel in the midabdomen with focal small herniation of small bowel in to a 4.3 cm ventral abdominal hernia where there is a transition point, distal to this point the small bowel is collapsed. No appendicitis. PELVIC ORGA NS/BLADDER: Unremarkable. LYMPH NODES: No lymphadenopathy. VESSELS: Ma in portal vein dilation.. PERITONEUM / RETROPERITONEUM: No free air or flui d. BONES: Degenerative changes. SOFT TISSUES: Dilated loops of small b owel in the midabdomen with focal small herniation of small bowel into a 4.3 c m ventral abdominal hernia where there is a transition point, distal to this p oint the small bowel is collapsed. Trace fluid within the hernia sac. IMPRESSION: 1. Findings in the lower lungs are compatible with m ultifocal pneumonia, likely viral. 2. Findings concerning for small awa l obstruction due to small bowel containing ventral abdominal periumbilical he rnia. Strangulation is possible though no direct evidence of intestinal ischem ia. 3. Hepatic cirrhosis and portal hypertension with splenomegaly and tra ce ascites. A few hypodense nodules in the right hepatic lobe on a background of cirrhosis are indeterminate. Recommend nonemergent liver MRI with contrast for further evaluation. Signed by: Denis Layne DO on 10/05/2019 9:55 P M Dictated By: DENIS LAYNE DO 54 Transcribed By: CHRISTIANO on 10/05/192154 COPY T O: JAKE GRIMM DO Urine color knvtgcshjoodo7514-55-57 18:35:00* Test Item Value Reference Range Interpretation Comments Urine Color (test code = 5778-6) ORANGE YELLOW [facility] CenterUrine ywnrocm4096-93-24 18:35:00* Test Item Value Reference Range Interpretation Comments Urine Clarity (test code = 30022-6) CLEAR CLEAR [facility] Budapecific gravity of Urine by Test strip 2019-10-05 18:35:00* Test Item Value Reference Range Interpretation Comments Urine Specific Dwight (test code = 5811-5) 1.025 1.010-1.02 5 [facility] CenterUrine pH measurement by automated test fionp6424-89-14 18:35:00* Test Item Value Reference Range Interpretation Comments Urine pH (test code = 39671-8) 6 5-7 [facility] CenterUrine leukocyte esterase detection by lwvwhhuo4598-20-00 18:35:00* Test Item Value Reference Range Interpretation Comments Urine Leukocyte Esterase (test code = 5799-2) NEGATIVE NEGATIVE [facility] CenterUrine nitrite lxqkmcdca4201-43-70 18:35:00* Test Item Value Reference Range Interpretation Comments Urine Nitrite (test code = 42406-9) NEGATIVE NEGATIVE [facility] CenterUrine protein measurement by test strip (mass/volume)2019-10-05 18:35:00* Test Item Value Reference Range Interpretation Comments Urine Protein (test code = 5804-0) NEGATIVE NEGATIVE [facility] CenterUrine glucose bdppxvcdp6010-67-57 18:35:00* Test Item Value Reference Range Interpretation Comments Urine Glucose (UA) (test code = 2349-9) NEGATIVE NEGATIVE [facility] CenterUrine ketones detection by automated test fxohl4869-01-57 18:35:00* Test Item Value Reference Range Interpretation Comments Urine Ketones (test code = 91481-3) NEGATIVE NEGATIVE [facility] CenterUrine urobilinogen measurement by test strip (mass/volume)2019-10-05 18:35:00* Test Item Value Reference Range Interpretation Comments Urine Urobilinogen (test code = 56209-1) 1 0.2-1 [facility] CenterUrine total bilirubin measurement (mass/volume)2019-10-05 18:35:00* Test Item Value Reference Range Interpretation Comments Urine Bilirubin (test code = 1978-6) SMALL NEGATIVE [facility] CenterUrine erythrocytes xshysqunu2802-73-19 18:35:00* Test Item Value Reference Range Interpretation Comments Urine Blood (test code = 58608-5) NEGATIVE NEGATIVE [facility] CenterAutomated urine sediment leukocyte count by microscopy (number/high power field)2019-10-05 18:35:00* Test Item Value Reference Range Interpretation Comments Urine WBC (test code = 5821-4) 0-5 0-5 [facility] CenterErythrocytes detection in urine sediment by light yhpgqlljrr9420-09-06 18:35:00* Test Item Value Reference Range Interpretation Comments Urine RBC (test code = 67815-1) 0-5 0-5 [facility] CenterBacteria detection in urine sediment by light kncotddyij6908-41-16 18:35:00* Test Item Value Reference Range Interpretation Comments Urine Bacteria (test code = 45407-0) RARE NONE [facility] CenterEpithelial cells detection in urine sediment by light kadswopdxy2417-48-81 18:35:00* Test Item Value Reference Range Interpretation Comments Urine Epithelial Cells (test code = 43434-2) RARE NONE [facility]
[2019-11-24 13:51] LABS: BASOPHILS % 0.3 % (0.0-1.0); EOSINOPHILS # (AUTO) 0.1 (0.0-0.4); HEMOGLOBIN 10.8 g/dL (14.0-18.0); LYMPHOCYTES # (AUTO) 0.8 (1.0-3.2); LYMPHOCYTES % 22.2 % (18.0-39.1); MEAN CORPUSCULAR HEMOGLOBIN 32.5 pg (28-32); MEAN CORPUSCULAR HGB CONC 33.8 g/dL (31-35); MEAN CORPUSCULAR VOLUME 96.4 fL (81-99); MONOCYTES # (AUTO) 0.3 (0.2-0.8); MONOCYTES % 8.2 % (4.4-11.3); NEUTROPHILS # (AUTO) 2.3 (2.1-6.9); RED BLOOD COUNT 3.32 x10e6/uL (4.3-5.7); RED CELL DISTRIBUTION WIDTH 14.9 % (11.7-14.4)
[2019-11-24 13:57] LABS: INR 1.47; PLATELET COUNT 40 x10e3/uL (140-360); PROTHROMBIN TIME 18.7 seconds (11.9-14.5)
[2019-11-24 13:58] LABS: PARTIAL THROMBOPLASTIN TIME 39.8 seconds (23.8-35.5)
[2019-11-24 14:10] LABS: ALANINE AMINOTRANSFERASE 24 IU/L (0-55); ALBUMIN 3.6 g/dL (3.5-5.0); ALBUMIN/GLOBULIN RATIO 0.9 (0.8-2.0); ALKALINE PHOSPHATASE 87 IU/L (40-150); ANION GAP 18.2 mmol/L (8-16); BLOOD UREA NITROGEN 8 mg/dL (7-26); BUN/CREATININE RATIO 11 (6-25); CALCIUM 8.5 mg/dL (8.4-10.2); CARBON DIOXIDE 21 mmol/L (22-29); CHLORIDE 104 mmol/L (98-107); CREATINE KINASE 36 IU/L (30-200); CREATININE, SERUM 0.75 mg/dL (0.72-1.25); EST GLOMERULAR FILTRATION RATE > 60 ML/MIN (60-); GLUCOSE 113 mg/dL (74-118); POTASSIUM 3.2 mmol/L (3.5-5.1); SODIUM 140 mmol/L (136-145)
[2019-11-24] MEDS ORDERED: LIDOCAINE HCL 2% LOCAL INJ 5 ML SDV VIAL INJ ONE (14:34)
[2019-11-24] MEDS ORDERED: METOCLOPRAMIDE HCL 10 MG/2ML VIAL ONE (14:34)
[2019-11-24] MEDS ORDERED: OCTREOTIDE ACETATE 0.05 MG/ML AMP IV STA (14:59)
[2019-11-24] MEDS ORDERED: FUROSEMIDE INJ 10 MG/ML 2 ML VIAL IV PRN (15:00)
[2019-11-24] MEDS ORDERED: SODIUM CHLORIDE 0.9% 250ML 250 ML IV ONE (15:00)
[2019-11-24 15:05] LABS: PLATELET ESTIMATE MARKEDLY DECREASED; PLATELET MORPHOLOGY COMMENT FEW EDTA CLUMPING; RBC MORPHOLOGY COMMENT NORMAL
[2019-11-24] MEDS ORDERED: SODIUM CHLORIDE 0.9% 1000ML 1,000 ML IV SCH (15:15)
--- NOTE | 2019-11-24 15:26 | Emergency Department Note ---
History of Present Illnes History of Present Illness Chief Complaint: Abdominal Complaints History of Present Illness This is a 49 year old male 0230 AM PATIENT BEGAN HAVING BRIGHT RED STOOLS THAT HAVE NOW BECOME MAROON IN COLOR X [address] GIL'S OFFICE AND TOLD TO GO TO [facility] Historian: Patient Arrival Mode: Car Crystalizer Operator Required: No Onset (how long ago): hour(s) Location: RECTAL Quality: BLEED Radiation: Reports non-radiation Severity: moderate Onset quality: sudden Timing of current episode: intermittent Progression: waxing and waning Chronicity: new Context: Denies recent illness Relieving factors: none Exacerbating factors: none Associated symptoms: Reports denies other symptoms Past Medical/Family History Physician Review I have reviewed the patient's past medical and family history. Any updates have been documented here. Past Medical History Recent Fever: No Clinical Suspicion of Infectio: No New/Unexplained Change in Ment: No Past Medical History: Hypertension, Liver Disease Other Medical History: Alcohol abuse, portal hypertension, CIRRHOSIS Past Surgical History: Cholecysctectomy, Hernia Repair Social History Smoking Cessation: Current every day smoker Alcohol Use: Daily Any Illegal Drug Use: No TB Exposure/Symptoms: No Physically hurt or threatened: No Family History Family history of heart diseas: No Other Any Pre-Existing Lines (PICC,: No Review of Systems Review of Systems Constitutional: Reports no symptoms EENTM: Reports no symptoms Cardiovascular: Reports no symptoms Respiratory: Reports no symptoms Gastrointestinal: Reports as per HPI Genitourinary: Reports no symptoms Musculoskeletal: Reports no symptoms Integumentary: Reports no symptoms Neurological: Reports no symptoms Psychological: Reports no symptoms Endocrine: Reports no symptoms Hematological/Lymphatic: Reports no symptoms Physical Exam Related Data Allergies: Coded Allergies: No Known Allergies (Unverified , 10/05/19) Triage Vital Signs Vital Signs Date Time Temp Pulse Resp B/P (MAP) Pulse Ox O2 Delivery O2 Flow Rate FiO2 11/24/19 12:13 98.3 88 18 124/74 100 Room Air Vital signs reviewed: Yes Physical Exam CONSTITUTIONAL Constitutional: Present well-developed, Present well-nourished HENT HENT: Present normocephalic, Present atraumatic, Present oropharynx clear/moist, Present nose normal HENT L/R: Present left ext ear normal, Present right ext ear normal EYES Eyes: Reports PERRL, Reports conjunctivae normal NECK Neck: Present ROM normal PULMONARY Pulmonary: Present effort normal, Present breath sounds normal CARDIOVASCULAR Cardiovascular: Present regular rhythm, Present heart sounds normal, Present capillary refill normal, Present normal rate GASTROINTESTINAL Abdominal: Present soft, Present nontender, Present bowel sounds normal GENITOURINARY Genitourinary: Present exam deferred SKIN Skin: Present warm, Present dry MUSCULOSKELETAL Musculoskeletal: Present ROM normal NEUROLOGICAL Neurological: Present alert, Present oriented x 3, Present no gross motor or sensory deficits PSYCHOLOGICAL Psychological: Present mood/affect normal, Present judgement normal Results Laboratory Result Diagram: 11/24/19 1225 11/24/19 1225 Laboratory Laboratory Tests Test 11/24/19 12:25 White Blood Count 3.42 x10e3/uL (4.8-10.8) Red Blood Count 3.32 x10e6/uL (4.3-5.7) Hemoglobin 10.8 g/dL (14.0-18.0) Hematocrit 32.0 % (38.2-49.6) Mean Corpuscular Volume 96.4 fL (81-99) Mean Corpuscular Hemoglobin 32.5 pg (28-32) Mean Corpuscular Hemoglobin Concent 33.8 g/dL (31-35) Red Cell Distribution Width 14.9 % (11.7-14.4) Platelet Count 40 x10e3/uL (140-360) Neutrophils (%) (Auto) 67.0 % (38.7-80.0) Lymphocytes (%) (Auto) 22.2 % (18.0-39.1) Monocytes (%) (Auto) 8.2 % (4.4-11.3) Eosinophils (%) (Auto) 2.0 % (0.0-6.0) Basophils (%) (Auto) 0.3 % (0.0-1.0) Neutrophils # (Auto) 2.3 (2.1-6.9) Lymphocytes # (Auto) 0.8 (1.0-3.2) Monocytes # (Auto) 0.3 (0.2-0.8) Eosinophils # (Auto) 0.1 (0.0-0.4) Basophils # (Auto) 0.0 (0.0-0.1) Absolute Immature Granulocyte (auto 0.01 x10e3/uL (0-0.1) Platelet Estimate Markedly decreased Platelet Morphology Comment Few edta clumping Red Cell Morphology Comment Normal Prothrombin Time 18.7 seconds (11.9-14.5) Prothromb Time International Ratio 1.47 Activated Partial Thromboplast Time 39.8 seconds (23.8-35.5) Sodium Level 140 mmol/L (136-145) Potassium Level 3.2 mmol/L (3.5-5.1) Chloride Level 104 mmol/L (98-107) Carbon Dioxide Level 21 mmol/L (22-29) Anion Gap 18.2 mmol/L (8-16) Blood Urea Nitrogen 8 mg/dL (7-26) Creatinine 0.75 mg/dL (0.72-1.25) Estimat Glomerular Filtration Rate > 60 ML/MIN (60-) BUN/Creatinine Ratio 11 (6-25) Glucose Level 113 mg/dL (74-118) Calcium Level 8.5 mg/dL (8.4-10.2) Total Bilirubin 4.1 mg/dL (0.2-1.2) Aspartate Amino Transf (AST/SGOT) 54 IU/L (5-34) Alanine Aminotransferase (ALT/SGPT) 24 IU/L (0-55) Alkaline Phosphatase 87 IU/L (40-150) Creatine Kinase 36 IU/L (30-200) Creatine Kinase MB 1.10 ng/mL (0-5.0) Troponin I 0.011 ng/mL (0-0.300) Total Protein 7.7 g/dL (6.5-8.1) Albumin 3.6 g/dL (3.5-5.0) Globulin 4.1 g/dL (2.3-3.5) Albumin/Globulin Ratio 0.9 (0.8-2.0) Lab results reviewed: Yes Assessment & Plan Medical Decision Making MDM CIRRHOSIS WITH GI BLEED - PT STABLE VS'S BUT 2 IV'S, CBC, CHEM, T&C, PT/PTT - EVAL ANEMIA, THROMBOCYTOPENIA, COAGULOPATHY, IV PROTONIX, OCTREOTIDE, ADMIT Reassessment Reassessment ADMIT TO DR LUONG, I ALSO SPOKE WITH DR Guera HANSON Assessment & Plan Final Impression: (1) Cirrhosis (2) Thrombocytopenia (3) GI bleed Depart Disposition: ADMITTED Last Vital Signs Date Time Temp Pulse Resp B/P (MAP) Pulse Ox O2 Delivery O2 Flow Rate FiO2 8/31/20 12:13 98.3 88 18 124/74 100 Room Air Home Meds Reported Medications Lactulose (LACTULOSE) 20 Gm/30 Ml Solution, 30 ML PO BID for 30 Days, EACH 10/08/19 Tramadol Hcl (ULTRAM) 50 Mg Tablet, 50 MG PO Q8HR PRN for MODERATE PAIN (4-6), #15 TAB 10/08/19 Medications in the ED Pantoprazole Sodium 80 mg ONCE STAT IV ; Start 11/24/19 at 12:26; Stop 11/24/19 at 12:40; Status DC Ondansetron HCl 4 mg ONCE STAT IV ; Start 11/24/19 at 12:26; Stop 11/24/19 at 12:40; Status DC Sodium Chloride 1,000 ml @ 0 mls/hr Q0M STAT IV ; Start 11/24/19 at 12:26; Stop 11/24/19 at 12:30; Status DC Octreotide Acetate 0.05 mg ONCE STAT IV ; Start 11/24/19 at 14:59; Stop 11/24/19 at 15:05; Status DC Octreotide Acetate 500 mcg/ Sodium Chloride 250 ml @ 25 mls/hr Q10H IV ; Start 11/24/19 at 15:30; Stop 12/24/19 at 15:29 Sodium Chloride 250 ml @ 0 mls/hr ONCE ONCE IV ; Start 11/24/19 at 15:00; Stop 11/24/19 at 15:07; Status DC Furosemide 20 mg UD PRN IV SHORTNESS OF BREATH; Start 11/24/19 at 15:00; Stop 12/24/19 at 14:59 JUANA ROE MD Nov 24, 2019 15:26
--- OUTSIDE RECORDS SUMMARY | 2019-11-24 15:43 | XMS REPORT | Continuity of Care Document ---
Author Author [facility] t Organization [facility] Address [address] [place] [address] Phone Unavailable Care Team Providers Care Cancellation Clerk Name Role Phone NO, PCP PCP Unavailable Phu GRMIM Attphys Unavailable Payers Payer Name Policy Type Policy Number Effective Date Expiration Date S jazmin Covid 19 Hrsa Uninsured [id number] [facility] Problems Condition Name Condition Details Condition Category Status Onset Date Resolution Date Last Treatment Date Treating Clinician Comments Source Small bowel obstruction Problem Active [facility] Thrombocytopenia Problem Active [facility] Infection due to severe acute respiratory syndrome coronavir us 2 (SARS-CoV-2) Problem Active [facility] Allergies, Adverse Reactions, Alerts This patient has no known allergies or adverse reactions. Social History Social Habit Start Date Stop Date Quantity Comments Source Sex Assigned At [facility] Medications Ordered Medication Name Filled Medication Name Start Date Stop Da te Current Medication? Ordering Clinician Indication Dosage Frequency Signature (SIG) Comments Components Source Lactulose Lactulose Yes 30 Twice A Day [facility] Tramadol Hcl (Ultram) 50 Mg TABLET Tramadol Hcl (Ultram) 50 Mg TABLET Yes 50 Every 8 Hours as needed for Moderate Pain (4-6) [facility] Vital Signs Vital Name Observation Time Observation Value Comments Source Body Temperature 2019-10-08 16:00:00 97.9 [degF] [facility] Weight 2019-10-08 09:00:00 215.56 [lb_av] [facility] BMI (Body Mass Index) 2019-10-08 09:00:00 30.9 kg/m2 [facility] Procedures Procedure Date / Time Performed Performing Clinician Sourc e Computed tomography of abdomen and pelvis with contrast 00:00:00 [facility] Plan of Care Planned Activity Planned Date Details Comments Source Instructions Abdominal Pain - Adult [facility] Instructions Constipation - Adult [facility] Encounters Start Date/Time End Date/Time Encounter Type Admission Type Attendi [facility] Facility Care Department Encounter ID Source 2019-10-06 16:59:00 2019-10-08 18:35:00 Discharged Inpatient 1 JAKE GRIMM [facility] [id number] [facility] 2019-09-10 13:18:00 2019-09-10 13:18:00 Emergency E [facility] [id number] [facility] Results Test Description Test Time Test Comments Results Result Comments Source Blood leukocytes automated count (number/volume) 2019-10-08 05:30:00 Test Item White Blood Count (test code = 6690-2) 4.33 4.8-10.8 [facility] count (number/volume)2019-10-08 05:30:00* Test Item Value Reference Range Interpretation Comments Red Blood Count (test code = 789-8) 2.66 4.3-5.7 [facility] hemoglobin measurement (moles/volume)2019-10-08 05:30:00* Test Item Value Reference Range Interpretation Comments Hemoglobin (test code = 37329-0) 10.0 14.0-18.0 [facility] HospitalAutomated blood hematocrit (volume fraction)2019-10-08 05:30:00* Test Item Value Reference Range Interpretation Comments Hematocrit (test code = 4544-3) 26.2 38.2-49.6 [facility]Automated erythrocyte mean corpuscular rrppzl2057-55-55 05:30:00* Test Item Value Reference Range Interpretation Comments Mean Corpuscular Volume (test code = 787-2) 98.5 81-99 [facility]Autom[facility] erythrocyte mean corpuscular hemoglobin (mass per erythrocyte)2019-10-08 05:30:00* Test Item Value Reference Range Interpretation Comments Mean Corpuscular Hemoglobin (test code = 785-6) 37.6 28-32 [facility]Autom[facility] erythrocyte mean corpuscular hemoglobin concentration measurement (mass/volume)2019-10-08 05:30:00* Test Item Value Reference Range Interpretation Comments Mean Corpuscular Hemoglobin Concent (test code = 786-4) 38.2 31-35 [facility] HospitalRDW ZwxPy-Cqj1548-81-15 05:30:00* Test Item Value Reference Range Interpretation Comments Red Cell Distribution Width (test code = 58189-6) 15.3 11.7 -14.4 [facility] HospitalAutomated blood platelet count (count/volume)2019-10-08 05:30:00* Test Item Value Reference Range Interpretation Comments Platelet Count (test code = 777-3) 49 140-360 Results repeated and called to Yina Wise at 0637 on 10/08/19 by Kacey Arita . Read back and verified.[facility]Aut[facility]ed [facility] segmented neutrophil count as percentage of total xvepgyeqqp0210-20-03 05:30:00 * Test Item Value Reference Range Interpretation Comments Neutrophils (%) (Auto) (test code = 24145-1) 71.8 38.7-80.0 [facility]Aut[facility]ed [facility] lymphocyte count as percentage ot total vtiuiosect8389-89-83 05:30:00* Test Item Value Reference Range Interpretation Comments Lymphocytes (%) (Auto) (test code = 736-9) 18.5 18.0-39.1 [facility] HospitalAutomated blood monocyte count as percentage of total xeigltmiyk1377-21-93 05:30:00* Test Item Value Reference Range Interpretation Comments Monocytes (%) (Auto) (test code = 5905-5) 8.5 4.4-11.3 [facility] HospitalAutomated blood eosinophil count as percentage of total epdfjodmhf6916-02-00 05:30:00* Test Item Value Reference Range Interpretation Comments Eosinophils (%) (Auto) (test code = 713-8) 0.5 0.0-6.0 [facility] HospitalAutomated blood basophil count as percentage of total cfuhwynmey7425-74-52 05:30:00* Test Item Value Reference Range Interpretation Comments Basophils (%) (Auto) (test code = 706-2) 0.0 0.0-1.0 [facility] HospitalFluoroscopic procedure less than one hour trjlfmcs3816-87-88 05:30:00* Test Item Value Reference Range Interpretation Comments IM GRANULOCYTES % (test code = IM GRANULOCYTES %) 0.7 0.0- 1.0 [facility] HospitalAutomated blood neutrophil count 2019-10-08 05:30:00* Test Item Value Reference Range Interpretation Comments Neutrophils # (Auto) (test code = 751-8) 3.1 2.1-6.9 [facility] lymphocytes count (number/volume) 2019-10-08 05:30:00* Test Item Value Reference Range Interpretation Comments Lymphocytes # (Auto) (test code = 75258-9) 0.8 1.0-3.2 [facility] monocytes automated count (number/volume)2019-10-08 05:30:00* Test Item Value Reference Range Interpretation Comments Monocytes # (Auto) (test code = 742-7) 0.4 0.2-0.8 [facility] HospitalAutomated blood eosinophil count 2019-10-08 05:30:00* Test Item Value Reference Range Interpretation Comments Eosinophils # (Auto) (test code = 711-2) 0.0 0.0-0.4 [facility] HospitalAutomated blood basophil count (count/volume)2019-10-08 05:30:00* Test Item Value Reference Range Interpretation Comments Basophils # (Auto) (test code = 704-7) 0.0 0.0-0.1 [facility] HospitalFluoroscopic procedure less than one hour pzipwwxr7361-18-82 05:30:00* Test Item Value Reference Range Interpretation Comments Absolute Immature Granulocyte (auto (eric t code = Absolute Immature Granulocyte (auto) 0.03 0-0.1 [facility] Camp[facility]um or plasma sodium measurement (moles/volume)2019-10-08 05:30:00* Test Item Value Reference Range Interpretation Comments Sodium Level (test code = 2951-2) 143 136-145 [facility] Campuserum or plasma potassium measurement (moles/volume)2019-10-08 05:30:00* Test Item Value Reference Range Interpretation Comments Potassium Level (test code = 2823-3) 3.4 3.5-5.1 [facility] Campuserum or plasma chloride measurement (moles/volume)2019-10-08 05:30:00* Test Item Value Reference Range Interpretation Comments Chloride Level (test code = 2075-0) 110 98-107 [facility] Campuserum or plasma carbon dioxide, total measurement (moles/volume)2019-10-08 05:30:00* Test Item Value Reference Range Interpretation Comments Carbon Dioxide Level (test code = 2028-9) 26 22-29 [facility] Camp[facility]um or plasma anion oth2923-31-37 05:30:00* Test Item Value Reference Range Interpretation Comments Anion Gap (test code = 95610-1) 10.4 8-16 [facility]um or plasma urea nitrogen measurement (mass/volume)2019-10-08 05:30:00* Test Item Value Reference Range Interpretation Comments Blood Urea Nitrogen (test code = 3094-0) 7 7-26 [facility] Camp[facility]um or plasma creatinine measurement (mass/volume)2019-10-08 05:30:00* Test Item Value Reference Range Interpretation Comments Creatinine (test code = 2160-0) 0.68 0.72-1.25 [facility] Camp[facility]um or plasma urea nitrogen/creatinine mass larjw5680-52-36 05:30:00* Test Item Value Reference Range Interpretation Comments BUN/Creatinine Ratio (test code = 3097-3) 10 6-25 [facility] HospitalEstimated glomerular filtration rate (GFR) vhonfxcursgyz1259-28-86 05:30:00* Test Item Value Reference Range Interpretation Comments Estimat Glomerular Filtration Rate (test code = 912361360) > 60 >60 Ranges were taken from the National Kidney Disease Education Program and the [facility] Kid[facility] Foundation literature.Reference ranges:60 or greater: Owbfgh12-67 ( for 3 consecutive months): Chronic kidney disease 15 or less: Kidney failureMethodist TexSan HospitalGlucose wbcflfsocpx2585-56-43 05:30:00* Test Item Value Reference Range Interpretation Comments Glucose Level (test code = RYQ4875) 107 74-118 [facility]um or plasma calcium measurement (mass/volume)2019-10-08 05:30:00* Test Item Value Reference Range Interpretation Comments Calcium Level (test code = 01269-8) 8.0 8.4-10.2 [facility] HospitalBlood platelets count by estimate (number/volume)2019-10-07 05:25:00* Test Item Value Reference Range Interpretation Comments Platelet Estimate (test code = 74919-8) MODERATELY DECREASED [facility] HospitalPlatelet xdklhivqmg7817-65-91 05:25:00* Test Item Value Reference Range Interpretation Comments Platelet Morphology Comment (test code = 27417-6) FEW EDTA CLUMPING [facility] HospitalBlood anisocytosis detection by light qlqsbiigyx0942-81-65 05:25:00* Test Item Value Reference Range Interpretation Comments Anisocytosis (test code = 702-1) SLIGHT [facility] HospitalBlood dacrocytes detection by light htqiefxdjf6138-64-00 05:25:00* Test Item Value Reference Range Interpretation Comments Tear Drop Cells (test code = 7791-7) FEW [facility] HospitalBlood ovalocytes detection by light vvuasqxiyl2984-26-12 05:25:00* Test Item Value Reference Range Interpretation Comments Ovalocytes (test code = 774-0) FEW [facility] HospitalRBC bkapahgocf5166-85-68 05:25:00* Test Item Value Reference Range Interpretation Comments Red Cell Morphology Comment (test code = 6742-1) NORMAL [facility] Campuserum or plasma total bilirubin measurement (mass/volume)2019-10-07 05:25:00* Test Item Value Reference Range Interpretation Comments Total Bilirubin (test code = 1975-2) 3.2 0.2-1.2 [facility] HospitalFluoroscopic procedure less than one hour jlqsmlip4800-55-80 05:25:00* Test Item Value Reference Range Interpretation Comments Aspartate Amino Transf (AST/SGOT) (test code = Aspartate Amino Transf (AST/SGOT)) 35 5-34 [facility] Campuserum or plasma alanine aminotransferase measurement (enzymatic activity/volume)2019-10-07 05:25:00* Test Item Value Reference Range Interpretation Comments Alanine Aminotransferase (ALT/SGPT) (test code = 1742-6) 25 0-55 [facility] Camp[facility]um or plasma protein measurement (mass/volume)2019-10-07 05:25:00* Test Item Value Reference Range Interpretation Comments Total Protein (test code = 2885-2) 7.0 6.5-8.1 [facility] Camp[facility]um or plasma albumin measurement (mass/volume)2019-10-07 05:25:00* Test Item Value Reference Range Interpretation Comments Albumin (test code = 1751-7) 2.9 3.5-5.0 [facility] HospitalPlasma globulin measurement (mass/volume) 2019-10-07 05:25:00* Test Item Value Reference Range Interpretation Comments Globulin (test code = 13420-1) 4.1 2.3-3.5 [facility] Campuserum or plasma albumin/globulin mass xuhjd9086-81-05 05:25:00* Test Item Value Reference Range Interpretation Comments Albumin/Globulin Ratio (test code = 1759-0) 0.7 0.8-2.0 [facility] Campuserum or plasma alkaline phosphatase measurement (enzymatic activity/volume)2019-10-07 05:25:00* Test Item Value Reference Range Interpretation Comments Alkaline Phosphatase (test code = 6768-6) 67 40-150 [facility] HospitalProthrombin time (PT) in platelet poor plasma by coagulation iavqd7849-76-08 12:26:00* Test Item Value Reference Range Interpretation Comments Prothrombin Time (test code = 5902-2) 18.7 11.9-14.5 [facility] HospitalINR in Platelet poor plasma by Coagulation crlvi6490-33-42 12:26:00* Test Item Value Reference Range Interpretation Comments Prothromb Time International Ratio (test code = 6301-6) 1.46 Oral Anticoagulant Therapy INR Values:1. Low Intensity Therapy 1.5 - 2.02 . Moderate Intensity Therapy 2.0 - 3.03. High Intensity Therapy(1) 2.5 - 3. 54. High Intensity Therapy(2) 3.0 - 4.05. Panic Value INR > 5.0 [facility] HospitalFluoroscopic procedure less than one hour cucvucxi5678-76-25 22:40:00* Test Item Value Reference Range Interpretation [...] from individuals suspected of COVID-19 by their [facility] provider. This test has not been [...] under 564(g) of the ACT.Testing performed by [facility] [place] [address] [id number] TexSan HospitalCT ABDOMEN/PELVIS F9350-34-73 21:47:00 [place] [address] Patient Name: FIONA GREEN MR #: [id number] : 1970 Age/Sex: 49/M Req #: [id number] Adm Physician: Ordered by: JAKE GRIMM DO Report #: [id number] Location: ER R o/Bed: Procedure: [id number] CT/CT ABD OMEN/PELVIS W Exam Date: 10/05/19 Exam Time: 2014 REPORT STATUS: Signed EXAM: CT Abd omen and Pelvis WITH contrast INDICATION: Abdominal pain, purple hernia COMPARISON: None. TECHNIQUE: Abdomen and pelvis were scanned utilizing a m Wikirintector helical scanner from the lung base to [...] T O: JAKE GRIMM DO Urine color bqucifqtpfkvu6524-34-13 18:35:00* Test Item Value Reference Range Interpretation Comments Urine Color (test code = 5778-6) ORANGE YELLOW [facility] HospitalUrine uxtaugb1368-95-04 18:35:00* Test Item Value Reference Range Interpretation Comments Urine Clarity (test code = 54712-1) CLEAR CLEAR [facility] Campuspecific gravity of Urine by Test strip 2019-10-05 18:35:00* Test Item Value Reference Range Interpretation Comments Urine Specific Ferriday (test code = 5811-5) 1.025 1.010-1.02 5 [facility] HospitalUrine pH measurement by automated test gqxyc0098-42-52 18:35:00* Test Item Value Reference Range Interpretation Comments Urine pH (test code = 36739-6) 6 5-7 [facility] HospitalUrine leukocyte esterase detection by pythgeaw7239-68-78 18:35:00* Test Item Value Reference Range Interpretation Comments Urine Leukocyte Esterase (test code = 5799-2) NEGATIVE NEGATIVE [facility] HospitalUrine nitrite jdfdjivbh7462-56-29 18:35:00* Test Item Value Reference Range Interpretation Comments Urine Nitrite (test code = 36219-8) NEGATIVE NEGATIVE [facility] HospitalUrine protein measurement by test strip (mass/volume)2019-10-05 18:35:00* Test Item Value Reference Range Interpretation Comments Urine Protein (test code = 5804-0) NEGATIVE NEGATIVE [facility] HospitalUrine glucose nitptohbe5252-14-25 18:35:00* Test Item Value Reference Range Interpretation Comments Urine Glucose (UA) (test code = 2349-9) NEGATIVE NEGATIVE [facility] HospitalUrine ketones detection by automated test ytfgv7102-83-43 18:35:00* Test Item Value Reference Range Interpretation Comments Urine Ketones (test code = 80429-2) NEGATIVE NEGATIVE [facility] HospitalUrine urobilinogen measurement by test strip (mass/volume)2019-10-05 18:35:00* Test Item Value Reference Range Interpretation Comments Urine Urobilinogen (test code = 41270-0) 1 0.2-1 [facility] HospitalUrine total bilirubin measurement (mass/volume)2019-10-05 18:35:00* Test Item Value Reference Range Interpretation Comments Urine Bilirubin (test code = 1978-6) SMALL NEGATIVE [facility] HospitalUrine erythrocytes mzwrxivlc7315-95-25 18:35:00* Test Item Value Reference Range Interpretation Comments Urine Blood (test code = 92136-0) NEGATIVE NEGATIVE [facility] HospitalAutomated urine sediment leukocyte count by microscopy (number/high power field)2019-10-05 18:35:00* Test Item Value Reference Range Interpretation Comments Urine WBC (test code = 5821-4) 0-5 0-5 [facility] HospitalErythrocytes detection in urine sediment by light qbkpcjzosv6035-66-06 18:35:00* Test Item Value Reference Range Interpretation Comments Urine RBC (test code = 96730-8) 0-5 0-5 [facility] HospitalBacteria detection in urine sediment by light keiaptcuyf2800-28-95 18:35:00* Test Item Value Reference Range Interpretation Comments Urine Bacteria (test code = 95501-4) RARE NONE [facility] HospitalEpithelial cells detection in urine sediment by light ifxxxusgoh5229-20-30 18:35:00* Test Item Value Reference Range Interpretation Comments Urine Epithelial Cells (test code = 78099-4) RARE NONE [facility]
--- OUTSIDE RECORDS SUMMARY | 2019-11-24 15:43 | XMS REPORT | Clinical Summary ---
Author Author [facility] Address Unknown Phone Unavailable Care Team Providers Care Inserting Operator Name Role Phone PCP Unavailable Allergies Not [...]
[2019-11-24] MEDS: OCTREOTIDE ACETATE 500 MCG in SODIUM CHLORIDE 0.9% 250ML 249 ML IV SCH (17:05)
--- NOTE | 2019-11-24 17:14 | NUR ---
PT REQUEST MD ABIOLA GOING TO BEDSIDE NOW. PT STATES 13 EPISODES OF GI BLEEDING TODAY. DENIES ANY PREVIOUS HX OF SUCH. AAOX4. AMBULATORY TO RESTROOM. SKIN W/D. NO CP NO SOB.
--- NOTE | 2019-11-24 17:17 | NUR ---
ALDAIR NURSE TO TAKE REPORT BUSY AFTER DISCHARING A PT AND "WILL CALL BACK IN A MINUTE" PER CUSTOMER ADVOCACY MANAGER.
--- NOTE | 2019-11-24 18:30 | NUR ---
PT ARRIVED VIA STRETCHER FROM ER. PATIENT TRANSFERRED FROM STRETCHER TO THE BED WITHOUT DISTRESS. PT WAS ORIENTED TO UNIT AND ROOM. PT EDUCATED ON FALL RISK PRECAUTIONS. PT VERBALIZED UNDERSTANDING. CALL LIGHT AND BELONGINGS PLACED NEARBY. WILL CONTINUE TO MONITOR.
[2019-11-24 20:05] VITALS: BP 96/56
[2019-11-24] MEDS: PANTOPRAZOLE 40 MG 10ML VIAL IV SCH (20:30)
--- NOTE | 2019-11-24 20:30 | NUR ---
PATIENT RESTING IN BED IN STABLE CONDITION, NO SIGNS OF DISTRESS NOTED. IV FLUIDS ARE RUNNING AT ORDERED RATE AND PATIENT VOICES NO PAIN AT THIS TIME. BED IS IN LOW POSITION, SIDE RAILS ARE UP, CALL LIGHT IS WITHIN EASY REACH, WILL CONTINUE TO MONITOR.
[2019-11-24 20:40] VITALS: BP 96/56
[2019-11-24] MEDS ORDERED: SODIUM CHLORIDE 0.9% 250ML 250 ML ONE (21:57)
--- NOTE | 2019-11-24 22:35 | NUR ---
FIRST UNIT OF BLOOD HAS BEEN STARTED, NO REACTIONS OR DISTRESS NOTED. PATIENT'S VITALS ARE WITHIN NORMAL RANGE. CONTINUING TO MONITOR.
[2019-11-24] MEDS ORDERED: POTASSIUM CHLORIDE 20MEQ/100ML 200 ML IV ONE (23:30)
[2019-11-24] MEDS ORDERED: PHYTONADIONE 10 MG/ML AMP SQ ONE (23:30)
[2019-11-24] MEDS ORDERED: MELATONIN 5 MG TABLET PO PRN (23:30)
[2019-11-25] VITALS (8 sets, daily range): BP systolic 96–109; BP diastolic 52–64
[2019-11-25] MEDS ORDERED: MULTIVITAMINS- 12 INJECTION 10 ML, FOLIC ACID MDV 5 MG, THIAMINE HCL INJ 100 MG in SODI... IV ONE (00:15)
[2019-11-25] MEDS ORDERED: THIAMINE HCL INJ 100 MG/ML 2ML VIAL ONE (00:30)
[2019-11-25] MEDS ORDERED: MULTIVITAMINS INJECTION ONE (00:31)
[2019-11-25] MEDS ORDERED: FOLIC ACID 5 MG/ML VIAL ONE (00:31)
[2019-11-25] MEDS ORDERED: SODIUM CHLORIDE 0.9% 1000ML 1,000 ML ONE (00:31)
[2019-11-25] MEDS: MIDODRINE 2.5 MG TAB PO SCH ×3 (00:36→11:56)
[2019-11-25] MEDS: ALBUMIN 25% 12.5GM 0.25 GM/ML BTL IV SCH ×5 (00:37→19:00)
[2019-11-25] MEDS: OCTREOTIDE ACETATE 500 MCG in SODIUM CHLORIDE 0.9% 250ML 249 ML IV SCH ×3 (01:30→22:28)
[2019-11-25] MEDS ORDERED: SODIUM CHLORIDE 0.9% 250ML 250 ML ONE ×2 (02:32→21:12)
--- NOTE | 2019-11-25 02:35 | NUR ---
SECOND UNIT OF BLOOD HAS BEEN STARTED, NO REACTIONS OR DISTRESS NOTED. PATIENT'S VITALS ARE WITHIN NORMAL RANGE. CONTINUING TO MONITOR.
[2019-11-25 08:54] LABS: BASOPHILS % 0.4 % (0.0-1.0); EOSINOPHILS # (AUTO) 0.2 (0.0-0.4); EOSINOPHILS % 3.3 % (0.0-6.0); HEMATOCRIT 21.2 % (38.2-49.6); HEMOGLOBIN 7.3 g/dL (14.0-18.0); LYMPHOCYTES # (AUTO) 1.6 (1.0-3.2); LYMPHOCYTES % 32.4 % (18.0-39.1); MEAN CORPUSCULAR HEMOGLOBIN 32.9 pg (28-32); MEAN CORPUSCULAR HGB CONC 34.4 g/dL (31-35); MEAN CORPUSCULAR VOLUME 95.5 fL (81-99); MONOCYTES # (AUTO) 0.5 (0.2-0.8); MONOCYTES % 10.8 % (4.4-11.3); NEUTROPHILS # (AUTO) 2.5 (2.1-6.9); NEUTROPHILS % 52.7 % (38.7-80.0); RED BLOOD COUNT 2.22 x10e6/uL (4.3-5.7)
[2019-11-25 08:56] LABS: PLATELET COUNT 45 x10e3/uL (140-360); RED CELL DISTRIBUTION WIDTH 17.7 % (11.7-14.4)
[2019-11-25] MEDS: PANTOPRAZOLE 40 MG 10ML VIAL IV SCH ×2 (09:00→21:15)
[2019-11-25 09:05] LABS: INR 1.9
[2019-11-25 09:12] LABS: ALANINE AMINOTRANSFERASE 18 IU/L (0-55); ALKALINE PHOSPHATASE 51 IU/L (40-150); ANION GAP 16.1 mmol/L (8-16); BUN/CREATININE RATIO 17 (6-25); CALCIUM 7.6 mg/dL (8.4-10.2); CARBON DIOXIDE 19 mmol/L (22-29); CHLORIDE 108 mmol/L (98-107); CREATININE, SERUM 0.93 mg/dL (0.72-1.25); EST GLOMERULAR FILTRATION RATE > 60 ML/MIN (60-); GLUCOSE 111 mg/dL (74-118); SODIUM 139 mmol/L (136-145)
[2019-11-25 09:17] LABS: BLOOD UREA NITROGEN 16 mg/dL (7-26); POTASSIUM 4.1 mmol/L (3.5-5.1)
[2019-11-25 09:18] LABS: ALBUMIN 3.4 g/dL (3.5-5.0); ALBUMIN/GLOBULIN RATIO 1.5 (0.8-2.0)
[2019-11-25 12:48] LABS: HEMATOCRIT 19.7 % (38.2-49.6); HEMOGLOBIN 6.8 g/dL (14.0-18.0)
[2019-11-25 12:58] LABS: PLATELET ESTIMATE MARKEDLY DECREASED; PLATELET MORPHOLOGY COMMENT NORMAL
[2019-11-25] MEDS ORDERED: SODIUM CHLORIDE 0.9% 250ML 250 ML IV ONE (13:45)
[2019-11-25] MEDS: MIDODRINE HCL 5 MG TABLET PO SCH (16:04)
--- NOTE | 2019-11-25 16:21 | Diagnostic Imaging Report ---
EXAM: US ABDOMEN LIMITED DATE: 11/25/2019 2:28 PM INDICATION: ^CIRRHOSIS COMPARISON: CT dated 10/05/2019 TECHNIQUE: Transverse and longitudinal lincoln scale and color doppler sonographic images of the right upper quadrant were obtained. FINDINGS: LIVER 18.9 cm in the right midclavicular line. Liver demonstrates coarsened echotexture and nodular contours. No suspicious mass noted by ultrasound technique. GALLBLADDER Surgically absent. BILE DUCTS No intra nor extra-hepatic biliary dilation. Common bile duct measures 0.2cm PANCREAS: Limited evaluation. RIGHT KIDNEY: 12.1 cm Echogenicity: Normal Collecting System: No hydronephrosis Stones: None Cyst/Mass: None VESSELS: Aorta: Visualized portions are within normal size limits Inferior Vena Cava: Visualized portions are normal Main Portal Vein: 1.6 cm, normal size with hepatopetal flow. FREE FLUID: None IMPRESSION: 1. Cirrhotic liver morphology. Negative for ascites. 2. No suspicious mass by ultrasound technique. Previously identified hypodense nodules on CT are not visualized by ultrasound. Signed by: Omid Leos MD on 11/25/2019 4:18 PM
[2019-11-25 17:18] LABS: HEMATOCRIT 18.9 % (38.2-49.6); HEMOGLOBIN 6.5 g/dL (14.0-18.0)
--- NOTE | 2019-11-25 21:50 | NUR ---
PATIENT STARTED SECOND UNIT OF BLOOD, NO REACTIONS OR DISTRESS NOTED. PATIENT'S VITALS ARE WITHIN NORMAL RANGE. CONTINUING TO MONITOR.
[2019-11-26] VITALS (8 sets, daily range): BP systolic 111–134; BP diastolic 56–75
[2019-11-26] MEDS ORDERED: SODIUM CHLORIDE 0.9% 250ML 250 ML ONE (00:57)
[2019-11-26] MEDS: ALBUMIN 25% 12.5GM 0.25 GM/ML BTL IV SCH ×5 (01:00→18:00)
--- NOTE | 2019-11-26 01:30 | NUR ---
PATIENT STARTED ON JUMBO BAG OF PLASMA. NO SIGNS OF DISTRESS NOTED, VITALS SIGNS WITHIN NORMAL RANGE.
--- NOTE | 2019-11-26 02:50 | History and Physical ---
CHIEF COMPLAINT: Black tarry stool. HISTORY OF PRESENT ILLNESS: A 49-year-old male with known alcoholic liver cirrhosis with splenomegaly , very noncompliant, still drinks alcohol, who comes into the ED with complaints of black tarry stool, ongoing for the last several days prior to arrival to the hospital. The patient denies any hematemesis or hemoptysis. Denies any hematochezia, but does report having some black tarry stool. He is very noncompliant, does not follow up with a GI specialist as an outpatient. No reports of any chest pain, palpitation, nausea, or vomiting. The patient is seen and evaluated on the medical floor. He currently appears stable during my evaluation with no complaints . REVIEW OF SYSTEMS: Pertinent positives; black tarry stool. The rest of the 14-point review of systems have been reviewed with the patient and are negative. ALLERGIES: NO KNOWN DRUG ALLERGIES. HOME MEDICATIONS: Lactulose and tramadol. PAST MEDICAL HISTORY: Alcoholic liver cirrhosis, chronic alcohol abuse, jaundice, hepatomegaly. PAST SURGICAL HISTORY: He had a hernia repair in the past. FAMILY HISTORY: Hypertension and diabetes. SOCIAL HISTORY: No drugs. He never smoked. He drinks alcohol still. Of note, he . PHYSICAL EXAMINATION: VITAL SIGNS: Temperature is 97.9, pulse is 97, respiratory rate is 20, blood pressure 110/52, pulse ox 97% on room air. GENERAL: No acute distress. He is jaundiced on examination. PULMONARY: Clear to auscultation bilaterally. No wheezing, rales, or rhonchi. No crackles appreciated. CARDIOVASCULAR: Positive S1 and S2. No murmurs, rubs, or gallops appreciated. ABDOMEN: Soft, nondistended, nontender to palpation. Bowel sounds present. MUSCULOSKELETAL: Strength 5/5 throughout. No evidence of muscle deficits on examination. No weakness appreciated. NEUROLOGICAL: Cranial nerves II through XII grossly intact. No evidence of any neurological deficits on exam. SKIN: Intact. Warm to touch. Good cap refill. He is jaundiced. EXTREMITIES: No edema. Good range of motion throughout. LABORATORY FINDINGS: Show white count is 4.8, hemoglobin was , hematocrit currently is 18.9, and platelets of 45. Coagulation; PT 20, INR 1.9, PTT 29. Chemistry; sodium 139, potassium 4.1, chloride 101, bicarb 19, anion gap of 16, BUN 16, creatinine is 0.93, calcium is 7.6. Total bilirubin is 6.2, AST 37, ALT 18, alkaline phosphatase 51, troponins are negative. Albumin is 3.4. Alpha fetoprotein is pending. Coronavirus not detected . MICROBIOLOGY: None. IMAGING STUDIES: Abdominal ultrasound shows cirrhotic liver morphology . No suspicious mass underlying spine ultrasound. IMPRESSION: 1. Alcoholic liver cirrhosis with splenomegaly. 2. Elevated total bilirubin with jaundice. 3. Black tarry stool with underlying anemia. 4. Medical noncompliance. 5. Continues to drink alcohol. PLAN: At this time, the patient received Protonix, octreotide. We will continue with Protonix. He is on clear liquid diet. oral midodrine to avoid any kind of hepatorenal syndrome. He received a banana bag. He is also on albumin. GI was consulted and has been already evaluated. He will likely need an EGD at some point. Hold anticoagulation due to bleeding. Get morning labs. Alcohol cessation discussed with the patient. MD YORDY Castro/KELVIN /[id number]
[2019-11-26 06:20] LABS: BASOPHILS % 0.4 % (0.0-1.0); EOSINOPHILS # (AUTO) 0.1 (0.0-0.4); EOSINOPHILS % 3.7 % (0.0-6.0); HEMOGLOBIN 7.1 g/dL (14.0-18.0); LYMPHOCYTES # (AUTO) 1.1 (1.0-3.2); LYMPHOCYTES % 45.7 % (18.0-39.1); MEAN CORPUSCULAR HEMOGLOBIN 34.1 pg (28-32); MEAN CORPUSCULAR HGB CONC 35.1 g/dL (31-35); MEAN CORPUSCULAR VOLUME 97.1 fL (81-99); MONOCYTES # (AUTO) 0.2 (0.2-0.8); MONOCYTES % 9.9 % (4.4-11.3); NEUTROPHILS % 39.9 % (38.7-80.0); PLATELET COUNT 55 x10e3/uL (140-360); RED BLOOD COUNT 2.08 x10e6/uL (4.3-5.7)
[2019-11-26] MEDS: OCTREOTIDE ACETATE 500 MCG in SODIUM CHLORIDE 0.9% 250ML 249 ML IV SCH ×2 (06:20→17:30)
[2019-11-26 06:42] LABS: ANION GAP 14.5 mmol/L (8-16); BLOOD UREA NITROGEN 12 mg/dL (7-26); BUN/CREATININE RATIO 16 (6-25); CALCIUM 7.9 mg/dL (8.4-10.2); CARBON DIOXIDE 21 mmol/L (22-29); CHLORIDE 109 mmol/L (98-107); CREATININE, SERUM 0.77 mg/dL (0.72-1.25); EST GLOMERULAR FILTRATION RATE > 60 ML/MIN (60-); GLUCOSE 85 mg/dL (74-118); POTASSIUM 3.5 mmol/L (3.5-5.1); SODIUM 141 mmol/L (136-145)
--- NOTE | 2019-11-26 06:45 | NUR ---
BEDSIDE SBAR REPORT RECEIVED FROM SHIRIN LEE, PM SHIFT. PT FOUND RESTING IN BED IN NO ACUTE DISTRESS. PT IS ABLE TO MAKE NEEDS KNOWN AND DENIES ANY NEEDS AT THIS TIME. PT WAS EDUCATED ON FALL RISK PRECAUTIONS AND VERBALIZED UNDERSTANDING. CALL LIGHT AND BELONGINGS PLACED NEARBY. WILL CONTINUE TO MONITOR.
[2019-11-26 06:47] LABS: HEMATOCRIT 20.2 % (38.2-49.6)
[2019-11-26] MEDS: MIDODRINE HCL 5 MG TABLET PO SCH ×3 (08:00→16:00)
[2019-11-26] MEDS ORDERED: SODIUM CHLORIDE 0.9% 250ML 250 ML IV SCH (08:00)
[2019-11-26] MEDS ORDERED: PHYTONADIONE 10 MG/ML AMP SQ ONE (08:30)
[2019-11-26] MEDS: PANTOPRAZOLE 40 MG 10ML VIAL IV SCH (09:34)
[2019-11-26 10:50] LABS: EOSINOPHILS % (MANUAL) 5 % (0-7); LYMPHOCYTES % (MANUAL) 50 % (19-48); MONOCYTES % (MANUAL) 5 % (3.4-9.0); NEUTROPHILS % (MANUAL) 39 % (40-74)
[2019-11-26 10:51] LABS: ANISOCYTOSIS MODERATE; OVALOCYTES FEW; PLATELET ESTIMATE MODERATELY DECREASED; PLATELET MORPHOLOGY COMMENT NORMAL; TEAR DROP CELLS FEW
[2019-11-26 10:52] LABS: RBC MORPHOLOGY COMMENT ABNORMAL
[2019-11-26 18:17] LABS: HEMATOCRIT 24.4 % (38.2-49.6); HEMOGLOBIN 8.5 g/dL (14.0-18.0)
[2019-11-26] MEDS: PANTOPRAZOLE SOD 40 MG TABEC PO SCH (20:50)
[2019-11-26] MEDS: DOCUSATE SODIUM 100 MG CAP PO PRN (21:27)
[2019-11-26] MEDS ORDERED: PHYTONADIONE 10 MG/ML AMP IV ONE (22:00)
[2019-11-26] MEDS ORDERED: PHYTONADIONE 10MG/ML 20 MG in SODIUM CHLORIDE 0.9% 50ML 50 ML IV ONE (22:05)
--- NOTE | 2019-11-26 22:11 | NUR ---
DR.M HANSON ORDERED VIT.K 20 MG IV PIGGY BAG.ADMINISTERED.AAOX4.NO PAIN VOICED.BED LOCKED AND IN LOWEST POSITION.PHONE AND CALL LIGHT WITHIN REACH.INSTRUCTED TO CALL FOR ASSISTANCE NEEDED.
[2019-11-27] VITALS (8 sets, daily range): BP systolic 122–153; BP diastolic 67–81
--- NOTE | 2019-11-27 02:30 | NUR ---
Resting in the bed. in the unit.ordered for clear liquid diet on breakfast.npo after breakfast.scheduled for EGD . Addendum: 11/27/19 at 0319 by Leigh Williamson RN notified to transfer and pumphouse operator.
[2019-11-27] MEDS: OCTREOTIDE ACETATE 500 MCG in SODIUM CHLORIDE 0.9% 250ML 249 ML IV SCH ×3 (04:05→23:30)
--- NOTE | 2019-11-27 05:08 | NUR ---
Consent obtained. advised npo after breakfast.verbalized understanding.
[2019-11-27 06:43] LABS: BASOPHILS % 0.4 % (0.0-1.0); EOSINOPHILS # (AUTO) 0.1 (0.0-0.4); EOSINOPHILS % 4.2 % (0.0-6.0); HEMATOCRIT 24.6 % (38.2-49.6); HEMOGLOBIN 8.7 g/dL (14.0-18.0); LYMPHOCYTES # (AUTO) 1.1 (1.0-3.2); LYMPHOCYTES % 41.2 % (18.0-39.1); MEAN CORPUSCULAR HEMOGLOBIN 33.9 pg (28-32); MEAN CORPUSCULAR HGB CONC 35.4 g/dL (31-35); MEAN CORPUSCULAR VOLUME 95.7 fL (81-99); MONOCYTES # (AUTO) 0.3 (0.2-0.8); MONOCYTES % 13.1 % (4.4-11.3); NEUTROPHILS # (AUTO) 1.1 (2.1-6.9); NEUTROPHILS % 40.7 % (38.7-80.0); RED BLOOD COUNT 2.57 x10e6/uL (4.3-5.7)
--- NOTE | 2019-11-27 07:00 | NUR ---
SBAR BEDSIDE REPORT GIVEN BY RENETTA LEE, PM SHIFT. PT FOUND RESTING IN BED IN NO ACUTE DISTRESS. PATIENT IS ABLE TO MAKE NEEDS KNOWN AND DENIES ANY NEEDS AT THIS TIME. PT WAS EDUCATED ON FALL RISK PRECAUTIONS AND VERBALIZED UNDERSTANDING. CALL LIGHT AND BELONGINGS PLACED NEARBY. WILL CONTINUE TO MONITOR.
--- NOTE | 2019-11-27 07:05 | NUR ---
Bed side shift report given to oncoming Rn.stable condition.
[2019-11-27 07:15] LABS: PLATELET COUNT 39 x10e3/uL (140-360)
[2019-11-27 07:33] LABS: ALANINE AMINOTRANSFERASE 19 IU/L (0-55); ALBUMIN/GLOBULIN RATIO 1.8 (0.8-2.0); ALKALINE PHOSPHATASE 55 IU/L (40-150); ANION GAP 14.2 mmol/L (8-16); BLOOD UREA NITROGEN 6 mg/dL (7-26); BUN/CREATININE RATIO 8 (6-25); CALCIUM 8.2 mg/dL (8.4-10.2); CARBON DIOXIDE 23 mmol/L (22-29); CHLORIDE 108 mmol/L (98-107); CREATININE, SERUM 0.77 mg/dL (0.72-1.25); EST GLOMERULAR FILTRATION RATE > 60 ML/MIN (60-); GLUCOSE 94 mg/dL (74-118); POTASSIUM 3.2 mmol/L (3.5-5.1); SODIUM 142 mmol/L (136-145)
[2019-11-27 08:09] LABS: INR 1.62; PROTHROMBIN TIME 20.2 seconds (11.9-14.5)
[2019-11-27 08:22] LABS: PLATELET ESTIMATE MARKEDLY DECREASED; PLATELET MORPHOLOGY COMMENT NORMAL
[2019-11-27] MEDS: MIDODRINE HCL 5 MG TABLET PO SCH ×3 (08:24→16:00)
[2019-11-27] MEDS: PANTOPRAZOLE SOD 40 MG TABEC PO SCH ×2 (08:24→20:55)
[2019-11-27] MEDS ORDERED: POTASSIUM CHLORIDE 20MEQ/100ML 200 ML IV ONE (10:00)
--- NOTE | 2019-11-27 14:15 | NUR ---
PT OFF THE FLOOR FOR EGD
[2019-11-27] MEDS ORDERED: FENTANYL CITRATE/PF 100MCG/2 ML INJ ONE (14:23)
[2019-11-27] MEDS ORDERED: MIDAZOLAM HCL 2 MG/2 ML VIAL ONE (14:23)
[2019-11-27] MEDS ORDERED: PROPOFOL IV EMULSION 10 MG/ML 20 ML VIAL ONE (15:03)
[2019-11-27] MEDS ORDERED: LIDOCAINE HCL 2% LOCAL INJ 5 ML SDV VIAL INJ ONE (15:03)
[2019-11-27] MEDS: PROPRANOLOL HCL 10 MG TAB PO SCH ×2 (17:00→18:00)
--- NOTE | 2019-11-27 17:10 | NUR ---
PATIENT BACK TO FLOOR FROM EGD. PT RESTING IN BED IN NO ACUTE DISTRESS EASILY AROUSED. PATIENT IS ABLE TO MAKE NEEDS KNOWN AND DENIES ANY NEEDS AT THIS TIME. PAIN CONTROLLED. PT EDUCATED ON FALL RISK PRECAUTIONS; PT VERBALIZED UNDERSTANDING. CALL LIGHT AND BELONGINGS PLACED NEARBY. WILL CONTINUE TO MONITOR.
--- NOTE | 2019-11-27 17:25 | Operative Report ---
DATE OF PROCEDURE: 11/27/2019 SURGEON: Chico Castro MD PROCEDURE: An EGD with banding and biopsies. INDICATIONS FOR EGD: Anemia, rectal bleeding, cirrhosis of the liver. MEDICATIONS: The patient was done under MAC. Please see anesthesiologist's note. PROCEDURE IN DETAIL: With the patient in the left lateral decubitus position, the flexible fiberoptic Olympus gastroscope was introduced into the esophagus under direct visualization without any difficulty. Grade 2-3 esophageal varices were noted without active bleeding or stigmata of recent hemorrhage. The scope was then advanced with ease into the stomach and there was diffuse portal hypertensive gastropathy without active bleeding. Pylorus was intubated with ease and the scope was advanced all the way to the second portion of the duodenum. The scope was then withdrawn slowly. Mucosa overlying the proximal second portion appeared to be within normal limits. There was some focal nodularity noted in the duodenal bulb that was biopsied. The scope was then withdrawn back into the stomach and retroflexed and the portal hypertensive gastropathy changes were also noted in the fundus. There were no cardiac varices. The scope was then straightened out. It was subsequently withdrawn. It was then re-introduced into the esophagus. After the scope was fitted for banding, four bands were applied for three varices. The scope was subsequently withdrawn. The patient tolerated the procedure well. IMPRESSION: 1. Grade 2-3 esophageal varices, 4 bands applied for 3 columns of varices. 2. Portal hypertensive gastropathy. 3. Focal nodularity of distal bulb, biopsied. PLAN: Initiate Inderal 10 mg one p.o. b.i.d. The patient will need a colonoscopy, which can be done on an outpatient basis. Chico Castro MD [facility]/MODL /[id number] cc: Peggy Beltrán MD
--- NOTE | 2019-11-27 18:10 | Progress Note ---
DATE: 11/26/2019 Medicine Progress Note SUBJECTIVE: The patient reportedly is doing very well, but his hemoglobin is low, for which blood transfusion has been ordered. The patient has received significant amount of blood transfusion. PHYSICAL EXAMINATION: VITAL SIGNS: Temperature is 97.6, pulse 50, respiratory rate is 18, blood pressure 120/75, and pulse ox 99% on room air. GENERAL: In no acute distress. Alert and oriented x3. Cooperative on examination. HEENT: Head normocephalic and atraumatic. EYES: Pupils are equal, round, and reactive to light bilaterally. Extraocular muscles intact bilaterally. Throat, no evidence of any erythema or exudates in the posterior pharynx. Has poor dentition. NECK: Supple. Good range of motion. PULMONARY: Clear to auscultation bilaterally. No wheezing, no rales, no rhonchi, no crackles appreciated. CARDIOVASCULAR: Positive S1 and S2. No murmurs, rubs, or gallops appreciated. GI: Abdomen is soft, nontender, nondistended to palpation. Bowel sounds present. MUSCULOSKELETAL: Strength 5/5 throughout. No evidence of any neurological deficits on examination. LABORATORY DATA: White count 3.4, hemoglobin 7.1, hematocrit is 20, and platelets of 55. After blood transfusion, hemoglobin 8.5, hematocrit is 24. His chemistry sodium 141, potassium 3.5, chloride 109, bicarb 21, anion gap of 14, BUN is 12, creatinine 0.77, glucose is 85, and calcium 7.9. IMPRESSION: 1. Alcoholic liver cirrhosis with splenomegaly with underlying anemia. 2. Elevated total bilirubin with jaundice. 3. Black tarry stool with underlying anemia. 4. Medical noncompliance. 5. Chronic alcohol abuse. PLAN: At this time, continue with Protonix and octreotide. He has been receiving several blood products and which I have also ordered two more units of packed RBC with much improved hemoglobin level. GI plans on possibly doing an EEG soon. Continue with oral midodrine. He is on a full liquid diet. SCDs for DVT prophylaxis. Get morning labs and await final recommendations by DICTATION ENDS HERE MD YORDY Castro/KELVIN /[id number]
--- NOTE | 2019-11-27 19:10 | NUR ---
Received the pt in report.lyeing in the bed.[facility] is running.no resp.distress .no pain voiced.bed locked and in lowest position.phone and call light within reach.insructed to call for assistance as needed.
[2019-11-27] MEDS: DOCUSATE SODIUM 100 MG CAP PO PRN (20:56)
--- NOTE | 2019-11-27 22:38 | NUR ---
RECEIVED REPORT FROM RENETTA. PATIENT ASLEEP IN BED. PATIENT IN NO PAIN OR DISTRESS. CALL LIGHT WITHIN REACH.
--- NOTE | 2019-11-27 22:38 | NUR ---
Report given to Les Walker RN.
[2019-11-28] VITALS: BP 121/78
[2019-11-28] MEDS ORDERED: SODIUM CHLORIDE 0.9% 250ML 250 ML ONE (02:30)
[2019-11-28 04:00] VITALS: BP 116/71
[2019-11-28] MEDS: TRAMADOL HCL 50 MG TAB PO PRN ×2 (06:37→15:39)
--- NOTE | 2019-11-28 06:50 | NUR ---
BEDSIDE SBAR REPORT RECEIVED FROM DONNA RN, PM SHIFT. PT FOUND RESTING IN BED IN NO ACUTE DISTRESS. PT IS ABLE TO MAKE NEEDS KNOWN AND DENIES ANY NEEDS AT THIS TIME. PT WAS EDUCATED ON FALL RISK PRECAUTIONS AND VERBALIZED UNDERSTANDING. CALL LIGHT AND BELONGINGS PLACED NEARBY. WILL CONTINUE TO MONITOR.
--- NOTE | 2019-11-28 07:27 | NUR ---
GAVE BEDSIDE SHIFT REPORT TO ONCOMING NURSE. CALL LIGHT WITHIN REACH. PATIENT IN BED. HOURLY ROUNDING PERFORMED.
[2019-11-28] MEDS: SUCRALFATE 1 GM TAB PO SCH ×4 (07:30→15:39)
[2019-11-28] MEDS: MIDODRINE HCL 5 MG TABLET PO SCH ×3 (08:00→12:01)
--- NOTE | 2019-11-28 08:15 | NUR ---
LABS DRAWN AND WALKED TO LAB
[2019-11-28 08:19] VITALS: BP 134/74
[2019-11-28] MEDS: OCTREOTIDE ACETATE 500 MCG in SODIUM CHLORIDE 0.9% 250ML 249 ML IV SCH ×2 (08:30→09:29)
[2019-11-28 08:38] LABS: BASOPHILS % 0.8 % (0.0-1.0); EOSINOPHILS # (AUTO) 0.1 (0.0-0.4); EOSINOPHILS % 4.4 % (0.0-6.0); HEMATOCRIT 28.4 % (38.2-49.6); HEMOGLOBIN 9.5 g/dL (14.0-18.0); MEAN CORPUSCULAR HGB CONC 33.5 g/dL (31-35); MEAN CORPUSCULAR VOLUME 95.6 fL (81-99); MONOCYTES # (AUTO) 0.3 (0.2-0.8); MONOCYTES % 13.7 % (4.4-11.3); NEUTROPHILS # (AUTO) 1.1 (2.1-6.9); NEUTROPHILS % 42.1 % (38.7-80.0); PLATELET COUNT 54 x10e3/uL (140-360); RED BLOOD COUNT 2.97 x10e6/uL (4.3-5.7)
[2019-11-28 09:00] VITALS: BP 134/74
[2019-11-28 09:08] LABS: ANION GAP 16.6 mmol/L (8-16); BLOOD UREA NITROGEN 6 mg/dL (7-26); BUN/CREATININE RATIO 8 (6-25); CALCIUM 8.6 mg/dL (8.4-10.2); CARBON DIOXIDE 23 mmol/L (22-29); CHLORIDE 102 mmol/L (98-107); CREATININE, SERUM 0.79 mg/dL (0.72-1.25); EST GLOMERULAR FILTRATION RATE > 60 ML/MIN (60-); GLUCOSE 125 mg/dL (74-118); POTASSIUM 3.6 mmol/L (3.5-5.1); SODIUM 138 mmol/L (136-145)
[2019-11-28] MEDS: PROPRANOLOL HCL 10 MG TAB PO SCH (09:27)
[2019-11-28] MEDS: PANTOPRAZOLE SOD 40 MG TABEC PO SCH (09:27)
[2019-11-28 12:18] VITALS: BP 112/68
[2019-11-28] MEDS: DOCUSATE SODIUM 100 MG CAP PO PRN (13:21)
[2019-11-28 15:48] VITALS: BP 120/71
--- NOTE | 2019-11-28 16:10 | NUR ---
PATIENT DISCHARGED HOME VIA PRIVATE VEHICLE TRANSPORTED BY HIS SISTER, YELITZA. PERIPHERAL IV WAS DISCONTINUED; CATHETER TIP INTACT WITHOUT RESISTANCE. DRY DRESSING APPLIED. PT TOLERATED WELL. PT RECEIVED DISCHARGED SUMMARY, WRITTEN PRESCRIPTIONS, AND EDUCATION MATERIALS. PT VERBALIZED UNDERSTANDING.
[2019-11-28] MEDS ORDERED: SUCRALFATE 1 GM TAB PO SCH (21:00)
--- NOTE | 2019-11-29 04:50 | Discharge Summary ---
FINAL DISCHARGE DIAGNOSES: 1. Alcoholic liver cirrhosis with splenomegaly, status post EGD with esophageal clips placed. 2. Elevated total bilirubin with jaundice. 3. Black tarry stool with underlying anemia-resolved. 4. Medical noncompliance. 5. Chronic alcohol abuse. CONSULTANTS: GI. PHYSICAL EXAMINATION: VITAL SIGNS: Temperature 98, pulse 62, respiratory rate is 20, blood pressure is 120/79, and pulse ox 98% on room air. LABORATORY FINDINGS: Initially white count 2.1, hemoglobin 9.5, hematocrit 28.4, platelets of 54. Coagulation, PT 20, INR 1.62. Chemistry; sodium 138, potassium 3.6, chloride 102, bicarb 23, anion gap of 15, BUN is 6, creatinine is 0.79, and calcium is 8.6. LFTs; total bilirubin is 5.9, AST 36, ALT 19, calcium is 8.2. Troponins were negative, albumin 4. Alpha fetoprotein 6.6, which is within normal range. Serologies: Coronavirus not detected negative. Microbiology, none. IMAGING STUDIES: Abdominal ultrasound, cirrhotic liver morphology. Negative for ascites. No ultrasound. HOSPITAL COURSE: A 49-year-old male, who comes into the ED with underlying black tarry stool. The patient has known history of liver cirrhosis with splenomegaly and esophageal varices Protonix drip. GI was consulted. The patient underwent status post EGD on 11/27/2019, and had esophageal clips performed by . The patient was doing well postoperatively. The patient will have blood transfusion while here with a hemoglobin level within 9.5 prior to being discharged. No evidence of any black tarry stool prior to being discharged to home. I spoke with GI and GI cleared the patient for discharge to home with close followup as an outpatient for an outpatient colonoscopy. The patient was back to normal baseline with no complaints. The patient was initiated on propranolol twice a day. On the day of discharge, vital signs were stable. Labs reviewed and stable. The patient is seen evaluated and examined thoroughly on the day of discharge. No other complaints. The patient verbalized understanding and agreed to plan of care to follow up accordingly as an outpatient with primary care physician in 1 week and GI specialist in 1 to 2 weeks' time. MEDICATIONS: See med reconciliation form. DISPOSITION: Home. CONDITION: Stable. DIET: Heart healthy. In the event of any worsening symptoms, the patient was advised to come back to the ED for further evaluation. Discharge summary took greater than 35 minutes. MD YORDY Castro/MODL /[id number]
--- NOTE | 2019-11-29 07:30 | Progress Note ---
DATE: 11/27/2019 SUBJECTIVE: The patient is scheduled for EGD today. No overnight events. Platelets ordered this morning prior to procedure. PHYSICAL EXAMINATION: VITAL SIGNS: Temperature is 98, pulse is 72, respiratory rate 16, blood pressure 160/89, pulse ox 100% on room air. GENERAL: Not in acute distress. Alert and oriented x3. Cooperative on examination. HEENT: Head; normocephalic, atraumatic. Eyes; pupils are equal, round, and reactive to light bilaterally. PULMONARY: Clear to auscultation bilaterally. No wheezing, no rales, no rhonchi, no crackles appreciated. CARDIOVASCULAR: Positive S1 and S2. No murmurs, rubs, or gallops appreciated. ABDOMEN: Soft, nondistended, and nontender to palpation. Bowel sounds present. LABORATORY DATA: Show white count 2.6, hemoglobin 7.9, hematocrit is 25, platelets of 49. Chemistry, reviewed today, potassium is 3.2, replaced. IMPRESSION: 1. Alcoholic liver cirrhosis with splenomegaly with underlying anemia. 2. Elevated total bilirubin with jaundice. 3. Black tarry stool with underlying anemia. 4. Medical noncompliance. 5. Chronic alcohol abuse. 6. Chronic thrombocytopenia secondary to liver cirrhosis. PLAN: At this time, the patient underwent an EGD, found to have a grade 2-3 esophageal varices that required 4 bands with underlying portal hypertensive gastropathy and focal nodularity of the distal bulb. GI recommends propranolol 10 mg twice a day. He will need a colonoscopy as an outpatient basis. Continue with Protonix for now. Clear liquid diet. Monitor hemoglobin levels. Platelets were given today. Repeat labs in the morning. Potential discharge in the next 1-2 days. MD YORDY Castro/MODL /[id number]
== END 2019-11-28 16:30 | disposition home or self-care (01) | DRG 432 ==
LOC: ER 11:45 → ERHOLD 15:11 → MED/SURG3 18:06
PROVIDERS: ADMIT Internal Medicine; ATTEND Internal Medicine
PROC: 0DB78ZX Excision of Stomach, Pylorus, Via Natural or Artificial Opening Endoscopic, Diagnostic (ICD-10-PCS; 2019-11-27)
PROC: 06L38CZ Occlusion of Esophageal Vein with Extraluminal Device, Via Natural or Artificial Opening Endoscopic (ICD-10-PCS; principal; 2019-11-27 15:30)
DX: K70.30 Alcoholic cirrhosis of liver without ascites (principal); I85.11 Secondary esophageal varices with bleeding; D68.9 Coagulation defect, unspecified; D69.6 Thrombocytopenia, unspecified; R16.1 Splenomegaly, not elsewhere classified; Z91.19 Patient's noncompliance with other medical treatment and regimen; F10.20 Alcohol dependence, uncomplicated; D69.59 Other secondary thrombocytopenia; Z11.59 Encounter for screening for other viral diseases
CPT/HCPCS: 36415; 43239; 76705; 80048; 80053; 82105; 82550; 82553; 84484; 85014; 85018; 85025; 85610; 85730; 86850; 86900; 86920; 86922; 86945; 88305; 99284; J2001; J2250; J2353; J2354; J2765; J3010; J3411; J3430; J3480; J7030; J7050; P9016; P9017; P9034; U0002

== ENCOUNTER 2020-01-05 12:45 | Emergency (ER) | payer SELFPAY ==
[~2020-01-05] VITALS: Ht 177.8 cm; Wt 88.9 kg
[2020-01-05] MEDS ORDERED: PROPRANOLOL HCL10 MG PO (13:26)
--- NOTE | 2020-01-05 13:36 | Emergency Department Note ---
History of Present Illnes History of Present Illness Chief Complaint: General Medicine Complaints History of Present Illness This is a 49 year old male arrives to the ED with complaints of anxiety and requesting a refill of Ativan, Librium and propanolol. Patient states he was seen in [facility] emergency department for the same complaints a few months ago where he was given these medications. Patient states his last drink was last night, is a daily drinker, denies alcohol withdrawal seizures. Chief Complaint Comment Patient in from home with reports that he is feeling anxious and uneasy after drinking last night. Patient has liver cirrhosis and was told not to drink and was supposed to be taking librium for the withdrawal symptoms. Patient states that his sister told him not to take the librium as directed by the doctor because she said it was "too strong" and has not been taking them as directed. Patient states that he could not sleep last night and felt like he was having chills. Historian: Patient Arrival Mode: Car Severity: mild Duration (how long): day(s) Timing of current episode: intermittent Progression: waxing and waning Chronicity: chronic Relieving factors: none Past Medical/Family History Physician Review I have reviewed the patient's past medical and family history. Any updates have been documented here. Past Medical History Recent Fever: No Clinical Suspicion of Infectio: No New/Unexplained Change in Ment: No Past Medical History: Hypertension, Liver Disease Other Medical History: ALCOHOL ABUSE CIRRHOSIS PORTAL HYPERTENSION Past Surgical History: Cholecysctectomy, Hernia Repair Social History Smoking Cessation: Current every day smoker Alcohol Use: Daily Review of Systems Review of Systems Constitutional: Reports no symptoms EENTM: Reports no symptoms Cardiovascular: Reports no symptoms Respiratory: Reports no symptoms Gastrointestinal: Reports no symptoms Genitourinary: Reports no symptoms Musculoskeletal: Reports no symptoms Integumentary: Reports no symptoms Neurological: Reports no symptoms Psychological: Reports no symptoms Endocrine: Reports no symptoms Hematological/Lymphatic: Reports no symptoms Physical Exam Related Data Allergies: Coded Allergies: No Known Allergies (Unverified , 10/05/19) Triage Vital Signs Vital Signs Date Time Temp Pulse Resp B/P (MAP) Pulse Ox O2 Delivery O2 Flow Rate FiO2 01/05/20 13:12 98.1 75 16 150/96 100 Room Air Vital signs reviewed: Yes Physical Exam CONSTITUTIONAL Constitutional: Present well-developed, Present well-nourished HENT HENT: Present normocephalic, Present atraumatic, Present oropharynx clear/moist, Present nose normal HENT L/R: Present left ext ear normal, Present right ext ear normal EYES Eyes: Reports PERRL, Reports conjunctivae normal NECK Neck: Present ROM normal PULMONARY Pulmonary: Present effort normal, Present breath sounds normal CARDIOVASCULAR Cardiovascular: Present regular rhythm, Present heart sounds normal, Present capillary refill normal, Present normal rate GASTROINTESTINAL Abdominal: Present soft, Present nontender, Present bowel sounds normal GENITOURINARY Genitourinary: Present exam deferred SKIN Skin: Present warm, Present dry MUSCULOSKELETAL Musculoskeletal: Present ROM normal NEUROLOGICAL Neurological: Present alert, Present oriented x 3, Present no gross motor or sensory deficits, Present other (no hand tremors, no tongue fasciculations, no ataxia) PSYCHOLOGICAL Psychological: Present mood/affect normal, Present judgement normal Assessment & Plan Medical Decision Making MDM 49-year-old male arrives to the ED requesting refill of multiple medications. Patient midst of anterior alcoholic. No signs of active talk Lo-Trol's noted. Patient not in DTs Assessment & Plan Final Impression: (1) Alcohol abuse Depart Disposition: HOME, SELF-CARE Last Vital Signs Date Time Temp Pulse Resp B/P (MAP) Pulse Ox O2 Delivery O2 Flow Rate FiO2 01/05/20 13:12 98.1 75 16 150/96 100 Room Air Home Meds Active Scripts Propranolol Hcl (PROPRANOLOL HCL) 10 Mg Tablet, 10 MG PO QID, #20 TAB Prov:JAKE GRIMM DO 01/05/20 Reported Medications Lactulose (LACTULOSE) 20 Gm/30 Ml Solution, 30 ML PO BID for 30 Days, EACH 10/08/19 Tramadol Hcl (ULTRAM) 50 Mg Tablet, 50 MG PO Q8HR PRN for MODERATE PAIN (4-6), #15 TAB 10/08/19 JAKE GRIMM DO Jan 05, 2020 13:36
--- OUTSIDE RECORDS SUMMARY | 2020-01-05 14:04 | XMS REPORT | Continuity of Care Document ---
Author Author [facility] t Organization [facility] Address [address] [place] [address] Phone Unavailable Care Team Providers Care Containers Sales Representative Name Role Phone NO, PCP PCP Unavailable DAHU, S JIRIES Attphys Unavailable SANDHIR, S AMBICA Attphys Unavailable DAHU, S JIRIES Admphys Unavailable Payers Payer Name Policy Type Policy Number Effective Date Expiration Date Phu wu Covid19 Hrsa Uninsured [id number] CH I [facility] Covid 19 Hrsa Uninsured [id number] C [facility] Problems Condition Name Condition Details Condition Category Status Onset Date Resolution Date Last Treatment Date Treating Clinician Comments Source Small bowel obstruction Problem Active [facility] Thrombocytopenia Problem Active [facility] 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 Social History Social Habit Start Date Stop Date Quantity Comments Source Sex Assigned At [facility] Medications Ordered Medication Name Filled Medication Name Start Date Stop Da te Current Medication? Ordering Clinician Indication Dosage Frequency Signature (SIG) Comments Components Source Lactulose Lactulose Yes 30 Twice A Day [facility] Tramadol Hcl (Ultram) 50 Mg TABLET Tramadol Hcl (Ultram) 50 Mg TABLET Yes 50 Every 8 Hours as needed for Moderate Pain (4-6) [facility] Vital Signs Vital Name Observation Time Observation Value Comments Source Body Temperature 2019-11-28 15:48:00 98.0 [degF] [facility] Weight 2019-11-28 09:00:00 196 [lb_av] [facility] BMI (Body Mass Index) 2019-11-28 09:00:00 28.1 kg/m2 [facility] Body Temperature 2019-10-08 16:00:00 97.9 [degF] [facility] Weight 2019-10-08 09:00:00 215.56 [lb_av] [facility] BMI (Body Mass Index) 2019-10-08 09:00:00 30.9 kg/m2 [facility] Procedures Procedure Date / Time Performed Performing Clinician Formerly [facility] e US Abdomen limited 2019-11-25 00:00:00 [facility] REPAIR ABDOMINAL WALL, OPEN APPROACH 2019-10-06 00:00:00 [facility] RELEASE SMALL INTESTINE, OPEN APPROACH 2019-10-06 00:00:00 [facility] TRANSFUSE NONAUT PLATELETS IN PERIPH VEIN, PERC 2019-10-06 00:00 :00 [facility] ISOLATION 2019-10-06 00:00:00 [facility] REPAIR SMALL INTESTINE, OPEN APPROACH 2019-10-06 00:00:00 [facility] Computed tomography of abdomen and pelvis with contrast 00:00:00 [facility] Plan of Care Planned Activity Planned Date Details Comments Source Instructions Abdominal Pain - Adult [facility] Instructions Cirrhosis [facility] Instructions GI Bleeding [facility] Encounters Start Date/Time End Date/Time Encounter Type Admission Type Attendi [facility] Facility Care Department Encounter ID Source 2019-11-24 15:11:00 2019-11-28 16:30:00 Discharged Inpatient 1 JEANNINE LUONG [facility] [id number] [facility] 2019-10-06 16:59:00 2019-10-08 18:35:00 Discharged Inpatient 1 JAKE GRIMM [facility] [id number] [facility] 2019-09-10 13:18:00 2019-09-10 13:18:00 Emergency E [facility] [id number] [facility] Results Test Description Test Time Test Comments Results Result Comments Source Blood leukocytes automated count (number/volume) 2019-11-28 08:15:00 Test Item White Blood Count (test code = 6690-2) 2.49 4.8-10.8 [facility] count (number/volume)2019-11-28 08:15:00* Test Item Value Reference Range Interpretation Comments Red Blood Count (test code = 789-8) 2.97 4.3-5.7 [facility] (moles/volume)2019-11-28 08:15:00* Test Item Value Reference Range Interpretation Comments Hemoglobin (test code = 61710-6) 9.5 14.0-18.0 [facility] HospitalAutomated blood hematocrit (volume fraction)2019-11-28 08:15:00* Test Item Value Reference Range Interpretation Comments Hematocrit (test code = 4544-3) 28.4 38.2-49.6 [facility] HospitalAutomated erythrocyte mean corpuscular cicupg9035-49-98 08:15:00* Test Item Value Reference Range Interpretation Comments Mean Corpuscular Volume (test code = 787-2) 95.6 81-99 [facility] HospitalAutomated erythrocyte mean corpuscular hemoglobin (mass per erythrocyte)2019-11-28 08:15:00* Test Item Value Reference Range Interpretation Comments Mean Corpuscular Hemoglobin (test code = 785-6) 32.0 28-32 [facility] HospitalAutomated erythrocyte mean corpuscular hemoglobin concentration measurement (mass/volume)2019-11-28 08:15:00* Test Item Value Reference Range Interpretation Comments Mean Corpuscular Hemoglobin Concent (test code = 786-4) 33.5 31-35 [facility] HospitalRDW RzhTp-Hww4300-34-04 08:15:00* Test Item Value Reference Range Interpretation Comments Red Cell Distribution Width (test code = 92086-6) 18.0 11.7 -14.4 [facility] HospitalAutomated blood platelet count (count/volume)2019-11-28 08:15:00* Test Item Value Reference Range Interpretation Comments Platelet Count (test code = 777-3) 54 140-360 [facility] HospitalAutomated blood segmented neutrophil count as percentage of total uhagrpwysm5336-07-10 08:15:00* Test Item Value Reference Range Interpretation Comments Neutrophils (%) (Auto) (test code = 94125-3) 42.1 38.7-80.0 [facility] HospitalAutomated blood lymphocyte count as percentage ot total gweogrcksc8266-78-24 08:15:00* Test Item Value Reference Range Interpretation Comments Lymphocytes (%) (Auto) (test code = 736-9) 39.0 18.0-39.1 [facility] HospitalAutomated blood monocyte count as percentage of total gjdmnzpyep8457-12-49 08:15:00* Test Item Value Reference Range Interpretation Comments Monocytes (%) (Auto) (test code = 5905-5) 13.7 4.4-11.3 [facility] HospitalAutomated blood eosinophil count as percentage of total wryvrrwtku4737-59-83 08:15:00* Test Item Value Reference Range Interpretation Comments Eosinophils (%) (Auto) (test code = 713-8) 4.4 0.0-6.0 [facility] HospitalAutomated blood basophil count as percentage of total agbnqlbttj1211-45-04 08:15:00* Test Item Value Reference Range Interpretation Comments Basophils (%) (Auto) (test code = 706-2) 0.8 0.0-1.0 [facility] HospitalFluoroscopic procedure less than one hour owuihshy2406-48-77 08:15:00* Test Item Value Reference Range Interpretation Comments IM GRANULOCYTES % (test code = IM GRANULOCYTES %) 0.0 0.0- 1.0 [facility] HospitalAutomated blood neutrophil count 2019-11-28 08:15:00* Test Item Value Reference Range Interpretation Comments Neutrophils # (Auto) (test code = 751-8) 1.1 2.1-6.9 [facility] HospitalBlood lymphocytes count (number/volume) 2019-11-28 08:15:00* Test Item Value Reference Range Interpretation Comments Lymphocytes # (Auto) (test code = 35219-5) 1.0 1.0-3.2 [facility] HospitalBlood monocytes automated count (number/volume)2019-11-28 08:15:00* Test Item Value Reference Range Interpretation Comments Monocytes # (Auto) (test code = 742-7) 0.3 0.2-0.8 [facility] HospitalAutomated blood eosinophil count 2019-11-28 08:15:00* Test Item Value Reference Range Interpretation Comments Eosinophils # (Auto) (test code = 711-2) 0.1 0.0-0.4 [facility] HospitalAutomated blood basophil count (count/volume)2019-11-28 08:15:00* Test Item Value Reference Range Interpretation Comments Basophils # (Auto) (test code = 704-7) 0.0 0.0-0.1 [facility] HospitalFluoroscopic procedure less than one hour bvcysqdb5901-83-92 08:15:00* Test Item Value Reference Range Interpretation Comments Absolute Immature Granulocyte (auto (eric t code = Absolute Immature Granulocyte (auto) 0 0-0.1 [facility] sodium measurement (moles/volume)2019-11-28 08:15:00* Test Item Value Reference Range Interpretation Comments Sodium Level (test code = 2951-2) 138 136-145 [facility] potassium measurement (moles/volume)2019-11-28 08:15:00* Test Item Value Reference Range Interpretation Comments Potassium Level (test code = 2823-3) 3.6 3.5-5.1 [facility] chloride measurement (moles/volume)2019-11-28 08:15:00* Test Item Value Reference Range Interpretation Comments Chloride Level (test code = 2075-0) 102 98-107 [facility] carbon dioxide, total measurement (moles/volume)2019-11-28 08:15:00* Test Item Value Reference Range Interpretation Comments Carbon Dioxide Level (test code = 2028-9) 23 22-29 [facility] anion brn3253-76-05 08:15:00* Test Item Value Reference Range Interpretation Comments Anion Gap (test code = 66871-8) 16.6 8-16 [facility] urea nitrogen measurement (mass/volume)2019-11-28 08:15:00* Test Item Value Reference Range Interpretation Comments Blood Urea Nitrogen (test code = 3094-0) 6 7-26 [facility] creatinine measurement (mass/volume)2019-11-28 08:15:00* Test Item Value Reference Range Interpretation Comments Creatinine (test code = 2160-0) 0.79 0.72-1.25 [facility] urea nitrogen/creatinine mass kzmpx2017-65-51 08:15:00* Test Item Value Reference Range Interpretation Comments BUN/Creatinine Ratio (test code = 3097-3) 8 6-25 [facility] HospitalEstimated glomerular filtration rate (GFR) bovvscnzzpdix4037-94-54 08:15:00* Test Item Value Reference Range Interpretation Comments Estimat Glomerular Filtration Rate (test code = 958283261) > 60 >60 Ranges were taken from the National Kidney Disease Education Program and the [facility] [employer] literature.Reference ranges:60 or greater: Dzaccm40-54 ( for 3 consecutive months): Chronic kidney disease 15 or less: Kidney failureEl Campo Memorial HospitalGlucose plrwnaiffep8553-99-64 08:15:00* Test Item Value Reference Range Interpretation Comments Glucose Level (test code = TQI3374) 125 74-118 [facility] calcium measurement (mass/volume)2019-11-28 08:15:00* Test Item Value Reference Range Interpretation Comments Calcium Level (test code = 09628-7) 8.6 8.4-10.2 [facility] HospitalBlood platelets count by estimate (number/volume)2019-11-27 06:15:00* Test Item Value Reference Range Interpretation Comments Platelet Estimate (test code = 68132-5) MARKEDLY DECREASED [facility] HospitalPlatelet iuspujihut1404-97-35 06:15:00* Test Item Value Reference Range Interpretation Comments Platelet Morphology Comment (test code = 47819-6) NORMAL [facility] HospitalProthrombin time (PT) in platelet poor plasma by coagulation pfyap2489-77-15 06:15:00* Test Item Value Reference Range Interpretation Comments Prothrombin Time (test code = 5902-2) 20.2 11.9-14.5 [facility] HospitalINR in Platelet poor plasma by Coagulation eywwv8212-70-13 06:15:00* Test Item Value Reference Range Interpretation Comments Prothromb Time International Ratio (test code = 6301-6) 1.62 Oral Anticoagulant Therapy INR Values:1. Low Intensity Therapy 1.5 - 2.02 . Moderate Intensity Therapy 2.0 - 3.03. High Intensity Therapy(1) 2.5 - 3. 54. High Intensity Therapy(2) 3.0 - 4.05. Panic Value INR > 5.0 [facility] total bilirubin measurement (mass/volume)2019-11-27 06:15:00* Test Item Value Reference Range Interpretation Comments Total Bilirubin (test code = 1975-2) 5.9 0.2-1.2 [facility] HospitalFluoroscopic procedure less than one hour onpdtlsb3535-09-76 06:15:00* Test Item Value Reference Range Interpretation Comments Aspartate Amino Transf (AST/SGOT) (test code = Aspartate Amino Transf (AST/SGOT)) 36 5-34 [facility] plasma alanine aminotransferase measurement (enzymatic activity/volume)2019-11-27 06:15:00* Test Item Value Reference Range Interpretation Comments Alanine Aminotransferase (ALT/SGPT) (test code = 1742-6) 19 0-55 [facility] protein measurement (mass/volume)2019-11-27 06:15:00* Test Item Value Reference Range Interpretation Comments Total Protein (test code = 2885-2) 6.2 6.5-8.1 [facility] albumin measurement (mass/volume)2019-11-27 06:15:00* Test Item Value Reference Range Interpretation Comments Albumin (test code = 1751-7) 4.0 3.5-5.0 [facility] HospitalPlasma globulin measurement (mass/volume) 2019-11-27 06:15:00* Test Item Value Reference Range Interpretation Comments Globulin (test code = 81085-5) 2.2 2.3-3.5 [facility] albumin/globulin mass xvaau9611-36-46 06:15:00* Test Item Value Reference Range Interpretation Comments Albumin/Globulin Ratio (test code = 1759-0) 1.8 0.8-2.0 [facility] alkaline phosphatase measurement (enzymatic activity/volume)2019-11-27 06:15:00* Test Item Value Reference Range Interpretation Comments Alkaline Phosphatase (test code = 6768-6) 55 40-150 [facility] HospitalFluoroscopic procedure less than one hour flzcmoir6232-24-86 05:50:00* Test Item Value Reference Range Interpretation Comments Differential Total Cells Counted (test code = Almas tial Total Cells Counted) 100 [facility] blood neutrophils/100 leukocytes 2019-11-26 05:50:00* Test Item Value Reference Range Interpretation Comments Neutrophils % (Manual) (test code = 16833-3) 39 40-74 [facility] blood lymphocytes/100 leukocytes 2019-11-26 05:50:00* Test Item Value Reference Range Interpretation Comments Lymphocytes % (Manual) (test code = 737-7) 50 19-48 [facility] blood monocytes/100 leukocytes 2019-11-26 05:50:00* Test Item Value Reference Range Interpretation Comments Monocytes % (Manual) (test code = 744-3) 5 3.4-9.0 [facility] blood eosinophil count as percentage of total rhrekhbcwo2191-90-78 05:50:00* Test Item Value Reference Range Interpretation Comments Eosinophils % (Manual) (test code = 714-6) 5 0-7 [facility] govelyjgqa7153-21-42 05:50:00* Test Item Value Reference Range Interpretation Comments Basophils % (Manual) (test code = 26329-4) 1 0-1.5 [facility] HospitalBlood anisocytosis detection by light unriqthegm7673-26-97 05:50:00* Test Item Value Reference Range Interpretation Comments Anisocytosis (test code = 702-1) MODERATE [facility] HospitalBlood macrocytes detection by light teujflrwtu7279-30-39 05:50:00* Test Item Value Reference Range Interpretation Comments Macrocytosis (test code = 738-5) SLIGHT [facility] HospitalBlood dacrocytes detection by light zpwyorvhsp0375-57-72 05:50:00* Test Item Value Reference Range Interpretation Comments Tear Drop Cells (test code = 7791-7) FEW [facility] HospitalBlood ovalocytes detection by light xnenlcjpke9251-25-69 05:50:00* Test Item Value Reference Range Interpretation Comments Ovalocytes (test code = 774-0) FEW [facility] HospitalRBC nnboumdfnc2648-32-74 05:50:00* Test Item Value Reference Range Interpretation Comments Red Cell Morphology Comment (test code = 6742-1) ABNORMAL [facility] HospitalUS ABDOMEN RWPHCEO3662-71-73 16:15:00 [facility] [address] [place] [address] Patient Name: FIONA GREEN MR #: [id number] : 1970 Age/Sex: 49/M Req #: [id number] Adm Physician: JEANNINE LUONG MD Ordered by: HIGINIO HANSON MD Report #: [id number] Location: MED/SURG3 [facility] m/Bed: 294-1 Procedure: [id number] US/US ABDOM EN LIMITED Exam Date: 11/25/19 Exam Time: 1428 REPORT STATUS: Signed EXAM: US ABDOME N LIMITED DATE: 11/25/2019 2:28 PM INDICATION: CIRRHOSIS COMPARISON: C T dated 10/05/2019 TECHNIQUE: Transverse and longitudinal lincoln scale and color doppler sonographic images of the right upper quadrant were obtained. F INDINGS: LIVER 18.9 cm in the right midclavicular line. Liver demo nstrates coarsened echotexture and nodular contours. No suspicious mass noted by ultrasound technique. GALLBLADDER Surgically absent. BILE DUCTS No intra nor extra-hepatic biliary dilation. Common bile duct measures 0.2cm PANCREAS: Limited evaluation. RIGHT KIDNEY: 12.1 cm Echogenicity: No rmal Collecting System: No hydronephrosis Stones: None Cyst/Mass: None VESSELS: Aorta: Visualized portions are within normal size limits Inf erior Vena Cava: Visualized portions are normal Main Portal Vein: 1.6 cm, norm al size with hepatopetal flow. FREE FLUID: None IMPRESSION: 1. Ci rrhotic liver morphology. Negative for ascites. 2. No suspicious mass by ultra sound technique. Previously identified hypodense nodules on CT are not visuali zed by ultrasound. Signed by: Nemo Leos MD on 11/25/2019 4:18 PM Di ctated By: NEMO LEOS MD COPY TO: MAURA HANSON MD Serum or plasma yigzu-7-pbdetpfnfjp.tumor marker measurement (mass/volume)2019-11-25 05:00:00* Test Item Value Reference Range Interpretation Comments Alpha Fetoprotein (test code = 71877-5) 6.6 0.0-8.3 [facility] Electrochemiluminescence Immunoassay(ECLIA)Values obtained wit h different assay methods or kits cannotbe used interchangeably. Results cannot be interpreted asabsolute evidence of the presence or absence of malignantdisea se.This test is not interpretable in females.Performed at: [address] [id number] Director: David Santos MD, Phone: [phone] [facility]o [facility] HospitalFluoroscopic procedure less than one hour dezawjpr7263-07-49 17:30:00* Test Item Value Reference Range Interpretation Comments Coronavirus (PCR) (test code = Coronavirus (PCR)) NOT DETECTED NOTD ETECTED [employer] SARS-CoV-2 assay is a nucleic amplification test intended for the qualitative detection of RNA from SARS-CoV-2 from nasopharyngeal (HOME CARE SCHEDULER) specimens . It is used under Emergency Use Authorization (EUA) by FDA.A positive result is indicative of the presence of SARS-CoV-2 RNA. Clinical correlation with patient history and other diagnostic information is necessary to determine patient infe ction status.A negative (Not Detected) result does not preclude SARS-CoV-2 infec tion. Clinical Correlation with patient history and other diagnostic information should be used in patient management decisions.Invalid: Unable to generate a va lid result on this specimen. Please submit a new specimen for reprat testing oc clinically indicated.Tesing performed by:[facility] [address] [place] [id number], Aristeo Vásquez MD, PhD [facility] HospitalActivated partial thromboplastin time (aPTT) in platelet poor plasma by coagulation heunx1101-91-45 12:25:00* Test Item Value Reference Range Interpretation Comments Activated Partial Thromboplast Time (test code = 53640-1) 39.8 23.8-35.5 [facility] creatine kinase measurement (enzymatic activity/volume)2019-11-24 12:25:00* Test Item Value Reference Range Interpretation Comments Creatine Kinase (test code = 2157-6) 36 30-200 [facility] plasma creatine kinase MB measurement (mass/volume)2019-11-24 12:25:00* Test Item Value Reference Range Interpretation Comments Creatine Kinase MB (test code = 81174-7) 1.10 0-5.0 [facility] HospitalTroponin I measurement by highly sensitive enzyme wvywsfwuvue3041-22-14 12:25:00* Test Item Value Reference Range Interpretation Comments Troponin I (test code = 27292-2) 0.011 0-0.[address] [facility] or plasma hepatitis A virus IgM antibody detection by gcgcrpksuue1358-95-61 08:30:00* Test Item Value Reference Range Interpretation Comments Hepatitis A IgM Antibody (test code = 10156-5) Negative Negativ e [facility]erum or plasma hepatitis B virus surface antigen detection by kpwamtiaimq9691-18-79 08:30:00* Test Item Value Reference Range Interpretation Comments Hepatitis B Surface Antigen (test code = 5196-1) Negative Negat flower [facility]erum or plasma hepatitis B virus core IgM antibody detection by fseenylsodi2985-41-87 08:30:00* Test Item Value Reference Range Interpretation Comments Hepatitis B Core IgM Antibody (test code = 99428-5) Negative Ne gative [facility]um hepatitis C virus antibody qoxpoifme7982-78-20 08:30:00* Test Item Value Reference Range Interpretation Comments Hepatitis C Antibody (test code = 20120-8) <0.1 0.0-0.9 Negative: < 0.8 Indeterminate: 0.8 - 0.9 Positive: > 0.9 The CDC recommends that a positive HCV antibody result be followed up with a HCV Nucleic Acid Amplification test (461880).Performed at: [facility] [address] [place] [address] [id number] Director: David Santos MD, Phone: [phone] Campo Memorial HospitalBlst. cloud hospital leukocytes automated count (number/volume)2019-10-08 05:30:00* Test Item Value Reference Range Interpretation Comments White Blood Count (test code = 6690-2) 4.33 4.8-10.8 [facility] HospitalBlood erythrocytes automated count (number/volume)2019-10-08 05:30:00* Test Item Value Reference Range Interpretation Comments Red Blood Count (test code = 789-8) 2.66 4.3-5.7 [facility] HospitalBlood hemoglobin measurement (moles/volume)2019-10-08 05:30:00* Test Item Value Reference Range Interpretation Comments Hemoglobin (test code = 13042-6) 10.0 14.0-18.0 [facility] HospitalAutomated blood hematocrit (volume fraction)2019-10-08 05:30:00* Test Item Value Reference Range Interpretation Comments Hematocrit (test code = 4544-3) 26.2 38.2-49.6 [facility] HospitalAutomated erythrocyte mean corpuscular dxfsxj3930-30-58 05:30:00* Test Item Value Reference Range Interpretation Comments Mean Corpuscular Volume (test code = 787-2) 98.5 81-99 [facility] HospitalAutomated erythrocyte mean corpuscular hemoglobin (mass per erythrocyte)2019-10-08 05:30:00* Test Item Value Reference Range Interpretation Comments Mean Corpuscular Hemoglobin (test code = 785-6) 37.6 28-32 [facility] HospitalAutcrawley memorial hospitaled erythrocyte mean corpuscular hemoglobin concentration measurement (mass/volume)2019-10-08 05:30:00* Test Item Value Reference Range Interpretation Comments Mean Corpuscular Hemoglobin Concent (test code = 786-4) 38.2 31-35 [facility] HospitalRDW JncGw-Dtd7093-63-15 05:30:00* Test Item Value Reference Range Interpretation Comments Red Cell Distribution Width (test code = 91014-0) 15.3 11.7 -14.4 [facility] HospitalAutcrawley memorial hospitaled blood platelet count (count/volume)2019-10-08 05:30:00* Test Item Value Reference Range Interpretation Comments Platelet Count (test code = 777-3) 49 140-360 Results repeated and called to Yina iWse at 0637 on 10/08/19 by Kacey Arita . Read back and verified.[facility] HospitalAutomated blood segmented neutrophil count as percentage of total admssoukwr9266-71-55 05:30:00 * Test Item Value Reference Range Interpretation Comments Neutrophils (%) (Auto) (test code = 01660-7) 71.8 38.7-80.0 [facility] HospitalAutcrawley memorial hospitaled blood lymphocyte count as percentage ot total mkmhkwjwdq4053-30-53 05:30:00* Test Item Value Reference Range Interpretation Comments Lymphocytes (%) (Auto) (test code = 736-9) 18.5 18.0-39.1 [facility] HospitalAutomated blood monocyte count as percentage of total xngqeixmpu2266-45-68 05:30:00* Test Item Value Reference Range Interpretation Comments Monocytes (%) (Auto) (test code = 5905-5) 8.5 4.4-11.3 [facility] HospitalAutomated blood eosinophil count as percentage of total lmdnnghfys2551-05-67 05:30:00* Test Item Value Reference Range Interpretation Comments Eosinophils (%) (Auto) (test code = 713-8) 0.5 0.0-6.0 [facility] HospitalAutomated blood basophil count as percentage of total wtzykrujfy2327-04-24 05:30:00* Test Item Value Reference Range Interpretation Comments Basophils (%) (Auto) (test code = 706-2) 0.0 0.0-1.0 [facility] HospitalFluoroscopic procedure less than one hour fjtvbzep4953-19-84 05:30:00* Test Item Value Reference Range Interpretation Comments IM GRANULOCYTES % (test code = IM GRANULOCYTES %) 0.7 0.0- 1.0 [facility] HospitalAutomated blood neutrophil count 2019-10-08 05:30:00* Test Item Value Reference Range Interpretation Comments Neutrophils # (Auto) (test code = 751-8) 3.1 2.1-6.9 [facility] HospitalBlood lymphocytes count (number/volume) 2019-10-08 05:30:00* Test Item Value Reference Range Interpretation Comments Lymphocytes # (Auto) (test code = 16847-2) 0.8 1.0-3.2 [facility] HospitalBlood monocytes automated count (number/volume)2019-10-08 05:30:00* Test Item Value Reference Range Interpretation Comments Monocytes # (Auto) (test code = 742-7) 0.4 0.2-0.8 [facility] HospitalAutomated blood eosinophil count 2019-10-08 05:30:00* Test Item Value Reference Range Interpretation Comments Eosinophils # (Auto) (test code = 711-2) 0.0 0.0-0.4 [facility] HospitalAutomated blood basophil count (count/volume)2019-10-08 05:30:00* Test Item Value Reference Range Interpretation Comments Basophils # (Auto) (test code = 704-7) 0.0 0.0-0.1 [facility] HospitalFluoroscopic procedure less than one hour domrtuvm1941-53-91 05:30:00* Test Item Value Reference Range Interpretation Comments Absolute Immature Granulocyte (auto (eric t code = Absolute Immature Granulocyte (auto) 0.03 0-0.1 [facility] sodium measurement (moles/volume)2019-10-08 05:30:00* Test Item Value Reference Range Interpretation Comments Sodium Level (test code = 2951-2) 143 136-145 [facility] potassium measurement (moles/volume)2019-10-08 05:30:00* Test Item Value Reference Range Interpretation Comments Potassium Level (test code = 2823-3) 3.4 3.5-5.1 [facility] chloride measurement (moles/volume)2019-10-08 05:30:00* Test Item Value Reference Range Interpretation Comments Chloride Level (test code = 2075-0) 110 98-107 [facility]er[facility] plasma carbon dioxide, total measurement (moles/volume)2019-10-08 05:30:00* Test Item Value Reference Range Interpretation Comments Carbon Dioxide Level (test code = 2028-9) 26 22-29 [facility] anion cty6108-88-13 05:30:00* Test Item Value Reference Range Interpretation Comments Anion Gap (test code = 63949-5) 10.4 8-16 [facility] urea nitrogen measurement (mass/volume)2019-10-08 05:30:00* Test Item Value Reference Range Interpretation Comments Blood Urea Nitrogen (test code = 3094-0) 7 7-26 [facility] creatinine measurement (mass/volume)2019-10-08 05:30:00* Test Item Value Reference Range Interpretation Comments Creatinine (test code = 2160-0) 0.68 0.72-1.25 [facility] plasma urea nitrogen/creatinine mass ebzzy5607-28-85 05:30:00* Test Item Value Reference Range Interpretation Comments BUN/Creatinine Ratio (test code = 3097-3) 10 6-25 [facility] HospitalEstimated glomerular filtration rate (GFR) skdvixghqkxka4950-00-32 05:30:00* Test Item Value Reference Range Interpretation Comments Estimat Glomerular Filtration Rate (test code = 643785487) > 60 >60 Ranges were taken from the National Kidney Disease Education Program and the [facility] Foundation literature.Reference ranges:60 or greater: Oxcedg89-92 ( for 3 consecutive months): Chronic kidney disease 15 or less: Kidney failureEl Campo Memorial HospitalGlucose owxunvufpmj7744-45-76 05:30:00* Test Item Value Reference Range Interpretation Comments Glucose Level (test code = XZI7881) 107 74-118 [facility] plasma calcium measurement (mass/volume)2019-10-08 05:30:00* Test Item Value Reference Range Interpretation Comments Calcium Level (test code = 09033-6) 8.0 8.4-10.2 [facility] HospitalBlood platelets count by estimate (number/volume)2019-10-07 05:25:00* Test Item Value Reference Range Interpretation Comments Platelet Estimate (test code = 51878-4) MODERATELY DECREASED [facility] HospitalPlatelet wgylcnstza9607-02-36 05:25:00* Test Item Value Reference Range Interpretation Comments Platelet Morphology Comment (test code = 80284-1) FEW EDTA CLUMPING [facility] HospitalBlood anisocytosis detection by light rhaekqbxke9834-16-92 05:25:00* Test Item Value Reference Range Interpretation Comments Anisocytosis (test code = 702-1) SLIGHT [facility] HospitalBlood dacrocytes detection by light lwjxqkrmgd1884-12-44 05:25:00* Test Item Value Reference Range Interpretation Comments Tear Drop Cells (test code = 7791-7) FEW [facility] HospitalBlood ovalocytes detection by light vqujwcnwbl6010-06-60 05:25:00* Test Item Value Reference Range Interpretation Comments Ovalocytes (test code = 774-0) FEW [facility] HospitalRBC hkxvixqfgl3025-52-79 05:25:00* Test Item Value Reference Range Interpretation Comments Red Cell Morphology Comment (test code = 6742-1) NORMAL [facility] total bilirubin measurement (mass/volume)2019-10-07 05:25:00* Test Item Value Reference Range Interpretation Comments Total Bilirubin (test code = 1975-2) 3.2 0.2-1.2 [facility] HospitalFluoroscopic procedure less than one hour vuukzcwv8235-15-87 05:25:00* Test Item Value Reference Range Interpretation Comments Aspartate Amino Transf (AST/SGOT) (test code = Aspartate Amino Transf (AST/SGOT)) 35 5-34 [facility] plasma alanine aminotransferase measurement (enzymatic activity/volume)2019-10-07 05:25:00* Test Item Value Reference Range Interpretation Comments Alanine Aminotransferase (ALT/SGPT) (test code = 1742-6) 25 0-55 [facility]er[facility] protein measurement (mass/volume)2019-10-07 05:25:00* Test Item Value Reference Range Interpretation Comments Total Protein (test code = 2885-2) 7.0 6.5-8.1 [facility] albumin measurement (mass/volume)2019-10-07 05:25:00* Test Item Value Reference Range Interpretation Comments Albumin (test code = 1751-7) 2.9 3.5-5.0 [facility] HospitalPlasma globulin measurement (mass/volume) 2019-10-07 05:25:00* Test Item Value Reference Range Interpretation Comments Globulin (test code = 59615-5) 4.1 2.3-3.5 [facility] albumin/globulin mass sumjf4291-68-04 05:25:00* Test Item Value Reference Range Interpretation Comments Albumin/Globulin Ratio (test code = 1759-0) 0.7 0.8-2.0 [facility] plasma alkaline phosphatase measurement (enzymatic activity/volume)2019-10-07 05:25:00* Test Item Value Reference Range Interpretation Comments Alkaline Phosphatase (test code = 6768-6) 67 40-150 [facility] HospitalProthrombin time (PT) in platelet poor plasma by coagulation xlhgu3278-07-42 12:26:00* Test Item Value Reference Range Interpretation Comments Prothrombin Time (test code = 5902-2) 18.7 11.9-14.5 [facility] HospitalINR in Platelet poor plasma by Coagulation ftpde7410-88-87 12:26:00* Test Item Value Reference Range Interpretation Comments Prothromb Time International Ratio (test code = 6301-6) 1.46 Oral Anticoagulant Therapy INR Values:1. Low Intensity Therapy 1.5 - 2.02 . Moderate Intensity Therapy 2.0 - 3.03. High Intensity Therapy(1) 2.5 - 3. 54. High Intensity Therapy(2) 3.0 - 4.05. Panic Value INR > 5.0 [facility] HospitalFluoroscopic procedure less than one hour cskecigv2123-35-65 22:40:00* Test Item Value Reference Range Interpretation [...] from individuals [facility] of [facility]. This test has not been [...] under 564(g) of the ACT.Testing performed by [address] [address]OLLE[facility] HospitalCT ABDOMEN/PELVIS B6751-87-85 21:47:00 [facility] [address] [address] Patient Name: FIONA GREEN MR #: [id number] : 1970 Age/Sex: 49/M Req #: [id number] Adm Physician: Ordered by: JAKE GRIMM DO Report #: [id number] Location: MEL[facility] correa/Bed: Procedure: [id number] CT/CT ABD OMEN/PELVIS W Exam Date: 10/05/19 Exam Time: 2014 REPORT STATUS: Signed EXAM: CT Abd omen and Pelvis WITH contrast INDICATION: Abdominal pain, purple hernia COMPARISON: None. TECHNIQUE: Abdomen and pelvis were scanned utilizing [facility] from the lung base to [...] By: CHRISTIANO on 10/05/192154 COPY T O: SANDHIR, AMBICA, DO Urine color gbzpkpfbmgsnp4165-92-38 18:35:00* Test Item Value Reference Range Interpretation Comments Urine Color (test code = 5778-6) ORANGE YELLOW [facility] HospitalUrine lrspjsx0154-08-16 18:35:00* Test Item Value Reference Range Interpretation Comments Urine Clarity (test code = 01703-4) CLEAR CLEAR [facility]pecific gravity of Urine by Test strip 2019-10-05 18:35:00* Test Item Value Reference Range Interpretation Comments Urine Specific [place] (test code = 5811-5) 1.025 1.010-1.02 5 [facility] HospitalUrine pH measurement by automated test qvemx5769-21-63 18:35:00* Test Item Value Reference Range Interpretation Comments Urine pH (test code = 22499-2) 6 5-7 [facility] HospitalUrine leukocyte esterase detection by iodvvptm6049-10-00 18:35:00* Test Item Value Reference Range Interpretation Comments Urine Leukocyte Esterase (test code = 5799-2) NEGATIVE NEGATIVE [facility] HospitalUrine nitrite oexdaskee5815-21-03 18:35:00* Test Item Value Reference Range Interpretation Comments Urine Nitrite (test code = 80587-1) NEGATIVE NEGATIVE [facility] HospitalUrine protein measurement by test strip (mass/volume)2019-10-05 18:35:00* Test Item Value Reference Range Interpretation Comments Urine Protein (test code = 5804-0) NEGATIVE NEGATIVE [facility] HospitalUrine glucose hdvbnlwlp6080-29-69 18:35:00* Test Item Value Reference Range Interpretation Comments Urine Glucose (UA) (test code = 2349-9) NEGATIVE NEGATIVE [facility] HospitalUrine ketones detection by automated test tczdz7356-04-05 18:35:00* Test Item Value Reference Range Interpretation Comments Urine Ketones (test code = 48287-8) NEGATIVE NEGATIVE [facility] HospitalUrine urobilinogen measurement by test strip (mass/volume)2019-10-05 18:35:00* Test Item Value Reference Range Interpretation Comments Urine Urobilinogen (test code = 67360-8) 1 0.2-1 [facility] HospitalUrine total bilirubin measurement (mass/volume)2019-10-05 18:35:00* Test Item Value Reference Range Interpretation Comments Urine Bilirubin (test code = 1978-6) SMALL NEGATIVE [facility] HospitalUrine erythrocytes yiyutpejk2966-30-17 18:35:00* Test Item Value Reference Range Interpretation Comments Urine Blood (test code = 23891-9) NEGATIVE NEGATIVE [facility] HospitalAutomated urine sediment leukocyte count by microscopy (number/high power field)2019-10-05 18:35:00* Test Item Value Reference Range Interpretation Comments Urine WBC (test code = 5821-4) 0-5 0-5 [facility] HospitalErythrocytes detection in urine sediment by light gpiqwezvgk4158-65-44 18:35:00* Test Item Value Reference Range Interpretation Comments Urine RBC (test code = 32610-9) 0-5 0-5 [facility] HospitalBacteria detection in urine sediment by light lanaununex7469-24-62 18:35:00* Test Item Value Reference Range Interpretation Comments Urine Bacteria (test code = 13662-3) RARE NONE [facility] HospitalEpithelial cells detection in urine sediment by light lggcqtvdfr5015-62-39 18:35:00* Test Item Value Reference Range Interpretation Comments Urine Epithelial Cells (test code = 64272-7) RARE NONE [facility] HospitalUrine color dpvqccpgjszqm5967-33-31 18:35:00* Test Item Value Reference Range Interpretation Comments Urine Color (test code = 5778-6) ORANGE YELLOW [facility] HospitalUrine xiwzjxb0375-37-59 18:35:00* Test Item Value Reference Range Interpretation Comments Urine Clarity (test code = 76236-5) CLEAR CLEAR [facility] of Urine by Test strip 2019-10-05 18:35:00* Test Item Value Reference Range Interpretation Comments Urine Specific [place] (test code = 5811-5) 1.025 1.010-1.02 5 [facility] HospitalUrine pH measurement by automated test hzmje9014-72-37 18:35:00* Test Item Value Reference Range Interpretation Comments Urine pH (test code = 63748-8) 6 5-7 [facility] HospitalUrine leukocyte esterase detection by bbnwyvdx8886-77-63 18:35:00* Test Item Value Reference Range Interpretation Comments Urine Leukocyte Esterase (test code = 5799-2) NEGATIVE NEGATIVE [facility] HospitalUrine nitrite epziducpg7628-24-39 18:35:00* Test Item Value Reference Range Interpretation Comments Urine Nitrite (test code = 81249-8) NEGATIVE NEGATIVE [facility] HospitalUrine protein measurement by test strip (mass/volume)2019-10-05 18:35:00* Test Item Value Reference Range Interpretation Comments Urine Protein (test code = 5804-0) NEGATIVE NEGATIVE [facility] HospitalUrine glucose fzrzdoyeo8543-76-04 18:35:00* Test Item Value Reference Range Interpretation Comments Urine Glucose (UA) (test code = 2349-9) NEGATIVE NEGATIVE [facility] HospitalUrine ketones detection by automated test vspgl6224-34-66 18:35:00* Test Item Value Reference Range Interpretation Comments Urine Ketones (test code = 86093-2) NEGATIVE NEGATIVE [facility] HospitalUrine urobilinogen measurement by test strip (mass/volume)2019-10-05 18:35:00* Test Item Value Reference Range Interpretation Comments Urine Urobilinogen (test code = 70223-3) 1 0.2-1 [facility] HospitalUrine total bilirubin measurement (mass/volume)2019-10-05 18:35:00* Test Item Value Reference Range Interpretation Comments Urine Bilirubin (test code = 1978-6) SMALL NEGATIVE [facility] HospitalUrine erythrocytes cphzlunxy5331-16-14 18:35:00* Test Item Value Reference Range Interpretation Comments Urine Blood (test code = 14518-0) NEGATIVE NEGATIVE [facility] HospitalAutomated urine sediment leukocyte count by microscopy (number/high power field)2019-10-05 18:35:00* Test Item Value Reference Range Interpretation Comments Urine WBC (test code = 5821-4) 0-5 0-5 [facility] HospitalErythrocytes detection in urine sediment by light rpmnnkkvas3954-45-32 18:35:00* Test Item Value Reference Range Interpretation Comments Urine RBC (test code = 69113-0) 0-5 0-5 [facility] HospitalBacteria detection in urine sediment by light abbuxycber8115-46-03 18:35:00* Test Item Value Reference Range Interpretation Comments Urine Bacteria (test code = 64218-2) RARE NONE [facility] HospitalEpithelial cells detection in urine sediment by light nucfowxhkp5816-03-77 18:35:00* Test Item Value Reference Range Interpretation Comments Urine Epithelial Cells (test code = 06103-5) RARE NONE [facility]
--- OUTSIDE RECORDS SUMMARY | 2020-01-05 14:04 | XMS REPORT | Clinical Summary ---
Author Author [facility] Address Unknown Phone Unavailable Care Team Providers Care Airport Planner Name Role Phone PCP Unavailable Allergies Not on File Medications Not on file Active Problems Not on file Social History Date Tobacco Use Types Packs/Day Years Used Never Assessed Sex Assigned at Date Recorded Not on file Last Filed Vital Signs Not on file Plan of Treatment Not on file Results Not on fileafter 01/04/2019
== END 2020-01-05 14:10 | disposition home or self-care (01) ==
LOC: ER 14:02
DX: F10.10 Alcohol abuse, uncomplicated (principal); I10 Essential (primary) hypertension; K76.9 Liver disease, unspecified; F17.210 Nicotine dependence, cigarettes, uncomplicated
CPT/HCPCS: 99283

== ENCOUNTER 2020-02-14 13:01 | Emergency (ER) | payer SELFPAY ==
[~2020-02-14] VITALS: Ht 177.8 cm; Wt 88.9 kg
[~2020-02-14 13:01] MED LIST changes: +PROPRANOLOL HCL10 MG PO
--- OUTSIDE RECORDS SUMMARY | 2020-02-14 13:41 | XMS REPORT | Clinical Summary ---
[facility] Address Unknown Phone Unavailable Care Team Providers Care Internal Control Consultant Name Role Phone PCP Unavailable Allergies Not on File Medications Not on file Active Problems Not on file Social History Date Tobacco Use Types Packs/Day Years Used Never Assessed Sex Assigned at Date Recorded Not on file Last Filed Vital Signs Not on file Plan of Treatment Not on file Results Not on fileafter 02/13/2019
--- OUTSIDE RECORDS SUMMARY | 2020-02-14 13:41 | XMS REPORT | Continuity of Care Document ---
Author Author [facility] t Organization [facility] Address [address] [place] [address] Phone Unavailable Care Team Providers Care Manager Respiratory Care Name Role Phone NO, PCP PCP Unavailable DAHU, S JIRIES Attphys Unavailable SANDHIR, S AMBICA Attphys Unavailable DAHU, S JIRIES Admphys Unavailable Payers Payer Name Policy Type Policy Number Effective Date Expiration Date Phu wu Covid19 Hrsa Uninsured [id number] CH I [facility] Covid 19 Hrsa Uninsured [id number] C [facility] Problems Condition Name Condition Details Condition Category Status Onset Date Resolution Date Last Treatment Date Treating Clinician Comments Source Small bowel obstruction Problem Active [facility] Thrombocytopenia Problem Active [facility] 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 Social History Social Habit Start Date Stop Date Quantity Comments Source Sex Assigned At [facility] Medications Ordered Medication Name Filled Medication Name Start Date Stop Da te Current Medication? Ordering Clinician Indication Dosage Frequency Signature (SIG) Comments Components Source Propranolol Hcl Propranolol Hcl 2020-01-05 13:26:00 Yes 10 Four Times Daily [facility] Lactulose Lactulose Yes 30 Twice A Day [facility] Tramadol Hcl (Ultram) 50 Mg TABLET Tramadol Hcl (Ultram) 50 Mg TABLET Yes 50 Every 8 Hours as needed for Moderate Pain (4-6) [facility] Vital Signs Vital Name Observation Time Observation Value Comments Source Weight 2020-01-05 13:12:00 196 [lb_av] [facility] BMI (Body Mass Index) 2020-01-05 13:12:00 28.1 kg/m2 [facility] Body Temperature 2019-11-28 15:48:00 98.0 [degF] [facility] Weight 2019-11-28 09:00:00 196 [lb_av] [facility] BMI (Body Mass Index) 2019-11-28 09:00:00 28.1 kg/m2 [facility] Body Temperature 2019-10-08 16:00:00 97.9 [degF] [facility] Weight 2019-10-08 09:00:00 215.56 [lb_av] [facility] BMI (Body Mass Index) 2019-10-08 09:00:00 30.9 kg/m2 [facility] Procedures Procedure Date / Time Performed Performing Clinician [facility] e OCCLUSION OF ESOPHAGEAL VEIN WITH EXTRALUMINAL DEVICE, ENDO 2019-11-27 00:00:00 [facility] EXCISION OF STOMACH, PYLORUS, ENDO, DIAGN 2019-11-27 00:00:00 [facility] US Abdomen limited 2019-11-25 00:00:00 [facility] W[facility], OPEN APPROACH 2019-10-06 00:00:00 [facility] RELEASE SMALL INTESTINE, OPEN APPROACH 2019-10-06 00:00:00 [facility] TRANSFUSE NONAUT PLATELETS IN PERIPH VEIN, PERC 2019-10-06 00:00 :00 [facility] ISOLATION 2019-10-06 00:00:00 [facility] REPAIR SMALL INTESTINE, OPEN APPROACH 2019-10-06 00:00:00 [facility] Computed tomography of abdomen and pelvis with contrast 00:00:00 [facility] Plan of Care Planned Activity Planned Date Details Comments Source Instructions Alcohol Abuse [facility] Instructions Alcohol Intoxication [facility] Instructions Alcoholism [facility] Instructions Alcohol Withdrawal [facility] Encounters Start Date/Time End Date/Time Encounter Type Admission Type [facility] Care Department Encounter ID Source 2020-01-05 14:02:00 2020-01-05 14:10:00 Departed Emergency Room [facility] [id number] [facility] dical [place] 2019-11-24 15:11:00 2019-11-28 16:30:00 Discharged Inpatient 1 JEANNINE LUONG [facility] [id number] [facility] 2019-10-06 16:59:00 2019-10-08 18:35:00 Discharged Inpatient 1 JAKE GRIMM [facility] [id number] [facility] 2019-09-10 13:18:00 2019-09-10 13:18:00 Emergency E [facility] [id number] [facility] Results Test Description Test Time Test Comments Results Result Comments Source Blood leukocytes automated count (number/volume) 2019-11-28 08:15:00 Test Item White Blood Count (test code = 6690-2) 2.49 4.8-10.8 [facility] count (number/volume)2019-11-28 08:15:00* Test Item Value Reference Range Interpretation Comments Red Blood Count (test code = 789-8) 2.97 4.3-5.7 [facility] hemoglobin measurement (moles/volume)2019-11-28 08:15:00* Test Item Value Reference Range Interpretation Comments Hemoglobin (test code = 13720-0) 9.5 14.0-18.0 [facility] HospitalAutom[facility] blood hematocrit (volume fraction)2019-11-28 08:15:00* Test Item Value Reference Range Interpretation Comments Hematocrit (test code = 4544-3) 28.4 38.2-49.6 [facility] HospitalAutom[facility] erythrocyte mean corpuscular jlqqub0200-55-18 08:15:00* Test Item Value Reference Range Interpretation Comments Mean Corpuscular Volume (test code = 787-2) 95.6 81-99 [facility] HospitalAutom[facility] erythrocyte mean corpuscular hemoglobin (mass per erythrocyte)2019-11-28 08:15:00* Test Item Value Reference Range Interpretation Comments Mean Corpuscular Hemoglobin (test code = 785-6) 32.0 28-32 [facility] HospitalAutom[facility] erythrocyte mean corpuscular hemoglobin concentration measurement (mass/volume)2019-11-28 08:15:00* Test Item Value Reference Range Interpretation Comments Mean Corpuscular Hemoglobin Concent (test code = 786-4) 33.5 31-35 [facility] HospitalRDW JczAq-Guz5618-31-04 08:15:00* Test Item Value Reference Range Interpretation Comments Red Cell Distribution Width (test code = 42350-0) 18.0 11.7 -14.4 [facility] HospitalAutomated blood platelet count (count/volume)2019-11-28 08:15:00* Test Item Value Reference Range Interpretation Comments Platelet Count (test code = 777-3) 54 140-360 [facility] count as percentage of total kxggmygyze8569-95-47 08:15:00* Test Item Value Reference Range Interpretation Comments Neutrophils (%) (Auto) (test code = 23361-3) 42.1 38.7-80.0 [facility]Aut[facility] cabarrused blood lymphocyte count as percentage ot total jaxwolsoab7128-45-64 08:15:00* Test Item Value Reference Range Interpretation Comments Lymphocytes (%) (Auto) (test code = 736-9) 39.0 18.0-39.1 [facility]Aut[facility] cabarrused blood monocyte count as percentage of total hvcfoketcm0570-41-11 08:15:00* Test Item Value Reference Range Interpretation Comments Monocytes (%) (Auto) (test code = 5905-5) 13.7 4.4-11.3 [facility] HospitalAutomated blood eosinophil count as percentage of total xeywztkqem3903-45-84 08:15:00* Test Item Value Reference Range Interpretation Comments Eosinophils (%) (Auto) (test code = 713-8) 4.4 0.0-6.0 [facility] HospitalAutomated blood basophil count as percentage of total yeiiofviyz7061-51-48 08:15:00* Test Item Value Reference Range Interpretation Comments Basophils (%) (Auto) (test code = 706-2) 0.8 0.0-1.0 [facility] HospitalFluoroscopic procedure less than one hour wqdspgtj7546-80-21 08:15:00* Test Item Value Reference Range Interpretation Comments IM GRANULOCYTES % (test code = IM GRANULOCYTES %) 0.0 0.0- 1.0 [facility] HospitalAutomated blood neutrophil count 2019-11-28 08:15:00* Test Item Value Reference Range Interpretation Comments Neutrophils # (Auto) (test code = 751-8) 1.1 2.1-6.9 [facility] lymphocytes count (number/volume) 2019-11-28 08:15:00* Test Item Value Reference Range Interpretation Comments Lymphocytes # (Auto) (test code = 15457-4) 1.0 1.0-3.2 [facility] HospitalBlood monocytes automated count (number/volume)2019-11-28 08:15:00* Test Item Value Reference Range Interpretation Comments Monocytes # (Auto) (test code = 742-7) 0.3 0.2-0.8 [facility] HospitalAutomated blood eosinophil count 2019-11-28 08:15:00* Test Item Value Reference Range Interpretation Comments Eosinophils # (Auto) (test code = 711-2) 0.1 0.0-0.4 [facility] HospitalAutomated blood basophil count (count/volume)2019-11-28 08:15:00* Test Item Value Reference Range Interpretation Comments Basophils # (Auto) (test code = 704-7) 0.0 0.0-0.1 [facility] HospitalFluoroscopic procedure less than one hour fzcoxlrl9782-22-11 08:15:00* Test Item Value Reference Range Interpretation Comments Absolute Immature Granulocyte (auto (eric t code = Absolute Immature Granulocyte (auto) 0 0-0.1 [facility] sodium measurement (moles/volume)2019-11-28 08:15:00* Test Item Value Reference Range Interpretation Comments Sodium Level (test code = 2951-2) 138 136-145 [facility] plasma potassium measurement (moles/volume)2019-11-28 08:15:00* Test Item Value Reference Range Interpretation Comments Potassium Level (test code = 2823-3) 3.6 3.5-5.1 [facility] plasma chloride measurement (moles/volume)2019-11-28 08:15:00* Test Item Value Reference Range Interpretation Comments Chloride Level (test code = 2075-0) 102 98-107 [facility] or plasma carbon dioxide, total measurement (moles/volume)2019-11-28 08:15:00* Test Item Value Reference Range Interpretation Comments Carbon Dioxide Level (test code = 2028-9) 23 22-29 [facility] or plasma anion mur4559-14-86 08:15:00* Test Item Value Reference Range Interpretation Comments Anion Gap (test code = 97399-6) 16.6 8-16 [facility] plasma urea nitrogen measurement (mass/volume)2019-11-28 08:15:00* Test Item Value Reference Range Interpretation Comments Blood Urea Nitrogen (test code = 3094-0) 6 7-26 [facility] plasma creatinine measurement (mass/volume)2019-11-28 08:15:00* Test Item Value Reference Range Interpretation Comments Creatinine (test code = 2160-0) 0.79 0.72-1.25 [facility] or plasma urea nitrogen/creatinine mass zdoxb2807-87-04 08:15:00* Test Item Value Reference Range Interpretation Comments BUN/Creatinine Ratio (test code = 3097-3) 8 6-25 [facility] HospitalEstimated glomerular filtration rate (GFR) yzrbmmvkzvpks7277-44-70 08:15:00* Test Item Value Reference Range Interpretation Comments Estimat Glomerular Filtration Rate (test code = 590018120) > 60 >60 Ranges were taken from the National Kidney Disease Education Program and the [facility] literature.Reference ranges:60 or greater: Uxawmq54-66 ( for 3 consecutive months): Chronic kidney disease 15 or less: Kidney failurePalo Pinto General HospitalGlucose szzysklndcy3628-98-67 08:15:00* Test Item Value Reference Range Interpretation Comments Glucose Level (test code = MMH9358) 125 74-118 [facility] or plasma calcium measurement (mass/volume)2019-11-28 08:15:00* Test Item Value Reference Range Interpretation Comments Calcium Level (test code = 50380-8) 8.6 8.4-10.2 [facility] HospitalBlood leukocytes automated count (number/volume)2019-11-28 08:15:00* Test Item Value Reference Range Interpretation Comments White Blood Count (test code = 6690-2) 2.49 4.8-10.8 [facility] HospitalBlood erythrocytes automated count (number/volume)2019-11-28 08:15:00* Test Item Value Reference Range Interpretation Comments Red Blood Count (test code = 789-8) 2.97 4.3-5.7 [facility] HospitalBlood hemoglobin measurement (moles/volume)2019-11-28 08:15:00* Test Item Value Reference Range Interpretation Comments Hemoglobin (test code = 25443-8) 9.5 14.0-18.0 [facility] HospitalAutomated blood hematocrit (volume fraction)2019-11-28 08:15:00* Test Item Value Reference Range Interpretation Comments Hematocrit (test code = 4544-3) 28.4 38.2-49.6 [facility] HospitalAutomated erythrocyte mean corpuscular ilbwjr7647-02-83 08:15:00* Test Item Value Reference Range Interpretation Comments Mean Corpuscular Volume (test code = 787-2) 95.6 81-99 [facility] HospitalAutomated erythrocyte mean corpuscular hemoglobin (mass per erythrocyte)2019-11-28 08:15:00* Test Item Value Reference Range Interpretation Comments Mean Corpuscular Hemoglobin (test code = 785-6) 32.0 28-32 [facility] HospitalAutomated erythrocyte mean corpuscular hemoglobin concentration measurement (mass/volume)2019-11-28 08:15:00* Test Item Value Reference Range Interpretation Comments Mean Corpuscular Hemoglobin Concent (test code = 786-4) 33.5 31-35 [facility] HospitalRDW JpaZw-Pwp9056-50-04 08:15:00* Test Item Value Reference Range Interpretation Comments Red Cell Distribution Width (test code = 02871-6) 18.0 11.7 -14.4 [facility] HospitalAutomated blood platelet count (count/volume)2019-11-28 08:15:00* Test Item Value Reference Range Interpretation Comments Platelet Count (test code = 777-3) 54 140-360 [facility] HospitalAutomated blood segmented neutrophil count as percentage of total dewhnffczt5004-69-62 08:15:00* Test Item Value Reference Range Interpretation Comments Neutrophils (%) (Auto) (test code = 26190-6) 42.1 38.7-80.0 [facility] HospitalAutomated blood lymphocyte count as percentage ot total rlbyhbkesj2579-08-66 08:15:00* Test Item Value Reference Range Interpretation Comments Lymphocytes (%) (Auto) (test code = 736-9) 39.0 18.0-39.1 [facility] HospitalAutomated blood monocyte count as percentage of total qhuvsivwsq0482-36-89 08:15:00* Test Item Value Reference Range Interpretation Comments Monocytes (%) (Auto) (test code = 5905-5) 13.7 4.4-11.3 [facility] HospitalAutomated blood eosinophil count as percentage of total lgtvfymmqi7046-54-00 08:15:00* Test Item Value Reference Range Interpretation Comments Eosinophils (%) (Auto) (test code = 713-8) 4.4 0.0-6.0 [facility] HospitalAutomated blood basophil count as percentage of total nfggptkxvd8228-76-92 08:15:00* Test Item Value Reference Range Interpretation Comments Basophils (%) (Auto) (test code = 706-2) 0.8 0.0-1.0 [facility] HospitalFluoroscopic procedure less than one hour cijqsnfx0184-53-88 08:15:00* Test Item Value Reference Range Interpretation Comments IM GRANULOCYTES % (test code = IM GRANULOCYTES %) 0.0 0.0- 1.0 [facility] HospitalAutomated blood neutrophil count 2019-11-28 08:15:00* Test Item Value Reference Range Interpretation Comments Neutrophils # (Auto) (test code = 751-8) 1.1 2.1-6.9 [facility] HospitalBlood lymphocytes count (number/volume) 2019-11-28 08:15:00* Test Item Value Reference Range Interpretation Comments Lymphocytes # (Auto) (test code = 06796-7) 1.0 1.0-3.2 [facility] HospitalBlaustin [facility] monocytes automated count (number/volume)2019-11-28 08:15:00* Test Item Value Reference Range Interpretation Comments Monocytes # (Auto) (test code = 742-7) 0.3 0.2-0.8 [facility] HospitalAutomated blood eosinophil count 2019-11-28 08:15:00* Test Item Value Reference Range Interpretation Comments Eosinophils # (Auto) (test code = 711-2) 0.1 0.0-0.4 [facility] HospitalAutomated blood basophil count (count/volume)2019-11-28 08:15:00* Test Item Value Reference Range Interpretation Comments Basophils # (Auto) (test code = 704-7) 0.0 0.0-0.1 [facility] HospitalFluoroscopic procedure less than one hour upllcrpj2590-56-45 08:15:00* Test Item Value Reference Range Interpretation Comments Absolute Immature Granulocyte (auto (eric t code = Absolute Immature Granulocyte (auto) 0 0-0.1 [facility] or plasma sodium measurement (moles/volume)2019-11-28 08:15:00* Test Item Value Reference Range Interpretation Comments Sodium Level (test code = 2951-2) 138 136-145 [facility] or plasma potassium measurement (moles/volume)2019-11-28 08:15:00* Test Item Value Reference Range Interpretation Comments Potassium Level (test code = 2823-3) 3.6 3.5-5.1 [facility] or plasma chloride measurement (moles/volume)2019-11-28 08:15:00* Test Item Value Reference Range Interpretation Comments Chloride Level (test code = 2075-0) 102 98-107 [facility] or plasma carbon dioxide, total measurement (moles/volume)2019-11-28 08:15:00* Test Item Value Reference Range Interpretation Comments Carbon Dioxide Level (test code = 2028-9) 23 22-29 [facility] or plasma anion scu2563-76-81 08:15:00* Test Item Value Reference Range Interpretation Comments Anion Gap (test code = 09701-4) 16.6 8-16 [facility] or plasma urea nitrogen measurement (mass/volume)2019-11-28 08:15:00* Test Item Value Reference Range Interpretation Comments Blood Urea Nitrogen (test code = 3094-0) 6 7-26 [facility] or plasma creatinine measurement (mass/volume)2019-11-28 08:15:00* Test Item Value Reference Range Interpretation Comments Creatinine (test code = 2160-0) 0.79 0.72-1.25 [facility] or plasma urea nitrogen/creatinine mass jedss0092-29-52 08:15:00* Test Item Value Reference Range Interpretation Comments BUN/Creatinine Ratio (test code = 3097-3) 8 6-25 [facility] HospitalEstimated glomerular filtration rate (GFR) rbonywfyxzysm9356-93-31 08:15:00* Test Item Value Reference Range Interpretation Comments Estimat Glomerular Filtration Rate (test code = 277975399) > 60 >60 Ranges were taken from the National Kidney Disease Education Program and the [facility] literature.Reference ranges:60 or greater: Sgmgsq44-06 ( for 3 consecutive months): Chronic kidney disease 15 or less: Kidney failurePalo Pinto General HospitalGlucose mfuqrailysc2004-52-06 08:15:00* Test Item Value Reference Range Interpretation Comments Glucose Level (test code = AOH3057) 125 74-118 [facility] or plasma calcium measurement (mass/volume)2019-11-28 08:15:00* Test Item Value Reference Range Interpretation Comments Calcium Level (test code = 12064-3) 8.6 8.4-10.2 [facility] HospitalBlood platelets count by estimate (number/volume)2019-11-27 06:15:00* Test Item Value Reference Range Interpretation Comments Platelet Estimate (test code = 55998-5) MARKEDLY DECREASED [facility] HospitalPlatelet mpdmsfsacw4047-96-97 06:15:00* Test Item Value Reference Range Interpretation Comments Platelet Morphology Comment (test code = 61116-7) NORMAL [facility] HospitalProthrombin time (PT) in platelet poor plasma by coagulation xwouh7358-53-69 06:15:00* Test Item Value Reference Range Interpretation Comments Prothrombin Time (test code = 5902-2) 20.2 11.9-14.5 [facility] HospitalINR in Platelet poor plasma by Coagulation adfmk7549-47-55 06:15:00* Test Item Value Reference Range Interpretation Comments Prothromb Time International Ratio (test code = 6301-6) 1.62 Oral Anticoagulant Therapy INR Values:1. Low Intensity Therapy 1.5 - 2.02 . Moderate Intensity Therapy 2.0 - 3.03. High Intensity Therapy(1) 2.5 - 3. 54. High Intensity Therapy(2) 3.0 - 4.05. Panic Value INR > 5.0 [facility] plasma total bilirubin measurement (mass/volume)2019-11-27 06:15:00* Test Item Value Reference Range Interpretation Comments Total Bilirubin (test code = 1975-2) 5.9 0.2-1.2 [facility] HospitalFluoroscopic procedure less than one hour hxeujwil4008-78-34 06:15:00* Test Item Value Reference Range Interpretation Comments Aspartate Amino Transf (AST/SGOT) (test code = Aspartate Amino Transf (AST/SGOT)) 36 5-34 [facility] or plasma alanine aminotransferase measurement (enzymatic activity/volume)2019-11-27 06:15:00* Test Item Value Reference Range Interpretation Comments Alanine Aminotransferase (ALT/SGPT) (test code = 1742-6) 19 0-55 [facility] or plasma protein measurement (mass/volume)2019-11-27 06:15:00* Test Item Value Reference Range Interpretation Comments Total Protein (test code = 2885-2) 6.2 6.5-8.1 [facility] plasma albumin measurement (mass/volume)2019-11-27 06:15:00* Test Item Value Reference Range Interpretation Comments Albumin (test code = 1751-7) 4.0 3.5-5.0 [facility] HospitalPlasma globulin measurement (mass/volume) 2019-11-27 06:15:00* Test Item Value Reference Range Interpretation Comments Globulin (test code = 78656-7) 2.2 2.3-3.5 [facility] plasma albumin/globulin mass pihoo9207-82-91 06:15:00* Test Item Value Reference Range Interpretation Comments Albumin/Globulin Ratio (test code = 1759-0) 1.8 0.8-2.0 [facility] or plasma alkaline phosphatase measurement (enzymatic activity/volume)2019-11-27 06:15:00* Test Item Value Reference Range Interpretation Comments Alkaline Phosphatase (test code = 6768-6) 55 40-150 [facility] HospitalBlood platelets count by estimate (number/volume)2019-11-27 06:15:00* Test Item Value Reference Range Interpretation Comments Platelet Estimate (test code = 23707-1) MARKEDLY DECREASED [facility] HospitalPlatelet cocfgzfmsg3114-08-86 06:15:00* Test Item Value Reference Range Interpretation Comments Platelet Morphology Comment (test code = 11609-8) NORMAL [facility] HospitalProthrombin time (PT) in platelet poor plasma by coagulation uptzi6184-32-10 06:15:00* Test Item Value Reference Range Interpretation Comments Prothrombin Time (test code = 5902-2) 20.2 11.9-14.5 [facility] HospitalINR in Platelet poor plasma by Coagulation zsvgp7790-21-24 06:15:00* Test Item Value Reference Range Interpretation Comments Prothromb Time International Ratio (test code = 6301-6) 1.62 Oral Anticoagulant Therapy INR Values:1. Low Intensity Therapy 1.5 - 2.02 . Moderate Intensity Therapy 2.0 - 3.03. High Intensity Therapy(1) 2.5 - 3. 54. High Intensity Therapy(2) 3.0 - 4.05. Panic Value INR > 5.0 [facility] plasma total bilirubin measurement (mass/volume)2019-11-27 06:15:00* Test Item Value Reference Range Interpretation Comments Total Bilirubin (test code = 1975-2) 5.9 0.2-1.2 [facility] HospitalFluoroscopic procedure less than one hour vysezwuk0404-34-92 06:15:00* Test Item Value Reference Range Interpretation Comments Aspartate Amino Transf (AST/SGOT) (test code = Aspartate Amino Transf (AST/SGOT)) 36 5-34 [facility] or plasma alanine aminotransferase measurement (enzymatic activity/volume)2019-11-27 06:15:00* Test Item Value Reference Range Interpretation Comments Alanine Aminotransferase (ALT/SGPT) (test code = 1742-6) 19 0-55 [facility] or plasma protein measurement (mass/volume)2019-11-27 06:15:00* Test Item Value Reference Range Interpretation Comments Total Protein (test code = 2885-2) 6.2 6.5-8.1 [facility] plasma albumin measurement (mass/volume)2019-11-27 06:15:00* Test Item Value Reference Range Interpretation Comments Albumin (test code = 1751-7) 4.0 3.5-5.0 [facility] HospitalPlasma globulin measurement (mass/volume) 2019-11-27 06:15:00* Test Item Value Reference Range Interpretation Comments Globulin (test code = 68124-5) 2.2 2.3-3.5 [facility] plasma albumin/globulin mass ndmvs4695-56-64 06:15:00* Test Item Value Reference Range Interpretation Comments Albumin/Globulin Ratio (test code = 1759-0) 1.8 0.8-2.0 [facility] plasma alkaline phosphatase measurement (enzymatic activity/volume)2019-11-27 06:15:00* Test Item Value Reference Range Interpretation Comments Alkaline Phosphatase (test code = 6768-6) 55 40-150 [facility] HospitalFluoroscopic procedure less than one hour bvrhdaqa5006-02-88 05:50:00* Test Item Value Reference Range Interpretation Comments Differential Total Cells Counted (test code = Differjaja tial Total Cells Counted) 100 [facility] blood neutrophils/100 leukocytes 2019-11-26 05:50:00* Test Item Value Reference Range Interpretation Comments Neutrophils % (Manual) (test code = 48662-4) 39 40-74 [facility] blood lymphocytes/100 leukocytes 2019-11-26 05:50:00* Test Item Value Reference Range Interpretation Comments Lymphocytes % (Manual) (test code = 737-7) 50 19-48 [facility] blood monocytes/100 leukocytes 2019-11-26 05:50:00* Test Item Value Reference Range Interpretation Comments Monocytes % (Manual) (test code = 744-3) 5 3.4-9.0 [facility] blood eosinophil count as percentage of total qpxbkliunp3296-76-58 05:50:00* Test Item Value Reference Range Interpretation Comments Eosinophils % (Manual) (test code = 714-6) 5 0-[address] [facility] yicpjrzvfs7114-98-16 05:50:00* Test Item Value Reference Range Interpretation Comments Basophils % (Manual) (test code = 60015-2) 1 0-1.5 [facility]Blood anisocytosis detection by light cugjhlwpkd0932-38-95 05:50:00* Test Item Value Reference Range Interpretation Comments Anisocytosis (test code = 702-1) MODERATE [facility] macrocytes detection by light dqubegyshg6425-40-77 05:50:00* Test Item Value Reference Range Interpretation Comments Macrocytosis (test code = 738-5) SLIGHT [facility] dacrocytes detection by light jsegtnjxmt6813-68-62 05:50:00* Test Item Value Reference Range Interpretation Comments Tear Drop Cells (test code = 7791-7) FEW [facility]Blood ovalocytes detection by light megmhkwwez2356-28-92 05:50:00* Test Item Value Reference Range Interpretation Comments Ovalocytes (test code = 774-0) FEW [facility] HospitalRBC wtwdxocjgl9125-29-96 05:50:00* Test Item Value Reference Range Interpretation Comments Red Cell Morphology Comment (test code = 6742-1) ABNORMAL [facility] HospitalFluoroscopic procedure less than one hour xtplhiyr0549-12-68 05:50:00* Test Item Value Reference Range Interpretation Comments Differential Total Cells Counted (test code = Almas tial Total Cells Counted) 100 [facility] blood neutrophils/100 leukocytes 2019-11-26 05:50:00* Test Item Value Reference Range Interpretation Comments Neutrophils % (Manual) (test code = 52857-4) 39 40-74 [facility] blood lymphocytes/100 leukocytes 2019-11-26 05:50:00* Test Item Value Reference Range Interpretation Comments Lymphocytes % (Manual) (test code = 737-7) 50 19-48 [facility] blood monocytes/100 leukocytes 2019-11-26 05:50:00* Test Item Value Reference Range Interpretation Comments Monocytes % (Manual) (test code = 744-3) 5 3.4-9.0 [facility] blood eosinophil count as percentage of total cnipdgdjim9919-42-44 05:50:00* Test Item Value Reference Range Interpretation Comments Eosinophils % (Manual) (test code = 714-6) 5 0-7 [facility] HospitalManual basophil hifndfmvpi5365-24-45 05:50:00* Test Item Value Reference Range Interpretation Comments Basophils % (Manual) (test code = 37742-3) 1 0-1.5 [facility] anisocytosis detection by light dysokvvfgk9662-93-98 05:50:00* Test Item Value Reference Range Interpretation Comments Anisocytosis (test code = 702-1) MODERATE [facility] macrocytes detection by light dzxvrvptxr8564-00-89 05:50:00* Test Item Value Reference Range Interpretation Comments Macrocytosis (test code = 738-5) SLIGHT [facility] HospitalBlood dacrocytes detection by light aqhkhmodhd2149-69-11 05:50:00* Test Item Value Reference Range Interpretation Comments Tear Drop Cells (test code = 7791-7) FEW [facility] HospitalBlood ovalocytes detection by light wocaujwuee0911-65-27 05:50:00* Test Item Value Reference Range Interpretation Comments Ovalocytes (test code = 774-0) FEW [facility] HospitalRBC eaimwrsccn9367-22-82 05:50:00* Test Item Value Reference Range Interpretation Comments Red Cell Morphology Comment (test code = 6742-1) ABNORMAL [facility] HospitalUS ABDOMEN RKAVYTV0514-62-65 16:15:00 [place] [address] Patient Name: FIONA GREEN MR #: [id number] : 1970 Age/Sex: 49/M Req #: [id number] Adm Physician: JEANNINE LUONG MD Ordered by: HIGINIO HANSON MD Report #: [id number] Location: MED/SURG[address] [place] [address]/Bed: [facility] Procedure: [id number] US/US ABDOM EN LIMITED Exam Date: 11/25/19 [...] PM Di ctated By: NEMO LEOS MD 17 COPY TO: MAURA HANSON MD Serum or plasma cjsxw-3-okozlusxfyh.tumor marker measurement (mass/volume)2019-11-25 05:00:00* Test Item Value Reference Range Interpretation Comments Alpha Fetoprotein (test code = 67068-9) 6.6 0.0-8.3 [facility] Electrochemiluminescence Immunoassay(ECLIA)Values obtained wit h different assay methods or kits cannotbe used interchangeably. Results cannot be interpreted asabsolute evidence of the presence or absence of malignantdisea se.This test is not interpretable in females.Performed at: [facility] LabCor [address] [place] [address] [id number] Director: David Santos MD, Phone: [phone]lingenerum or plasma deake-7-dijsjpybzpv.tumor marker measurement (mass/volume)2019-11-25 05:00:00* Test Item Value Reference Range Interpretation Comments Alpha Fetoprotein (test code = 00048-7) 6.6 0.0-8.3 [facility] Electrochemiluminescence Immunoassay(ECLIA)Values obtained wit h different assay methods or kits cannotbe used interchangeably. Results cannot be interpreted asabsolute evidence of the presence or absence of malignantdisea se.This test is not interpretable in females.Performed at: [facility] [address] [place], [place] [id number] Director: David Santos MD, Phone: [phone] [facility]into General HospitalFluoroscopic procedure less than one hour uxlgoiys4414-03-10 17:30:00* Test Item Value Reference Range Interpretation Comments Coronavirus (PCR) (test code = Coronavirus (PCR)) NOT DETECTED NOTD ETECTED Hologic Aptima SARS-CoV-2 assay is a nucleic amplification test intended for the qualitative detection of RNA from SARS-CoV-2 from nasopharyngeal (SENIOR OFFICE ASSISTANT) specimens . It is used under Emergency [...] for reprat testing oc clinically indicated.Tesing performed by:[facility] [address] [place] [address] [id number], Aristeo Vásquez MD, PhD [facility] HospitalFluoroscopic procedure less than one hour bsfswbci5990-47-57 17:30:00* Test Item Value Reference Range Interpretation Comments Coronavirus (PCR) (test code = Coronavirus (PCR)) NOT DETECTED NOTD [employer] SARS-CoV-2 assay is a nucleic amplification test intended for the qualitative detection of RNA from SARS-CoV-2 from nasopharyngeal (SENIOR OFFICE ASSISTANT) specimens . It is used under Emergency [...] for reprat testing oc clinically indicated.Tesing performed by:[facility] [address] [place] [address] [id number], Aristeo Vásquez MD, PhD [facility] HospitalActivated partial thromboplastin time (aPTT) in platelet poor plasma by coagulation vtjla2118-21-36 12:25:00* Test Item Value Reference Range Interpretation Comments Activated Partial Thromboplast Time (test code = 80198-8) 39.8 23.8-35.5 [facility] or plasma creatine kinase measurement (enzymatic activity/volume)2019-11-24 12:25:00* Test Item Value Reference Range Interpretation Comments Creatine Kinase (test code = 2157-6) 36 30-200 [facility] or plasma creatine kinase MB measurement (mass/volume)2019-11-24 12:25:00* Test Item Value Reference Range Interpretation Comments Creatine Kinase MB (test code = 76787-4) 1.10 0-5.0 [facility] HospitalTroponin I measurement by highly sensitive enzyme vlnnxqwkpgi4082-19-66 12:25:00* Test Item Value Reference Range Interpretation Comments Troponin I (test code = 59856-7) 0.011 0-0.300 [facility] HospitalActivated partial thromboplastin time (aPTT) in platelet poor plasma by coagulation vnatl7442-32-45 12:25:00* Test Item Value Reference Range Interpretation Comments Activated Partial Thromboplast Time (test code = 43888-5) 39.8 23.8-35.5 [facility] or plasma creatine kinase measurement (enzymatic activity/volume)2019-11-24 12:25:00* Test Item Value Reference Range Interpretation Comments Creatine Kinase (test code = 2157-6) 36 30-200 [facility] or plasma creatine kinase MB measurement (mass/volume)2019-11-24 12:25:00* Test Item Value Reference Range Interpretation Comments Creatine Kinase MB (test code = 28004-8) 1.10 0-5.0 [facility] HospitalTroponin I measurement by highly sensitive enzyme hhgwnuereic5532-97-95 12:25:00* Test Item Value Reference Range Interpretation Comments Troponin I (test code = 28429-6) 0.011 0-0.300 [facility] or plasma hepatitis A virus IgM antibody detection by mqfitralofh7430-81-24 08:30:00* Test Item Value Reference Range Interpretation Comments Hepatitis A IgM Antibody (test code = 52059-5) Negative Negativ e [facility] or plasma hepatitis B virus surface antigen detection by bycaultwict9383-73-00 08:30:00* Test Item Value Reference Range Interpretation Comments Hepatitis B Surface Antigen (test code = 5196-1) Negative Negat flower [facility] or plasma hepatitis B virus core IgM antibody detection by acqzyxrsjjg8775-99-70 08:30:00* Test Item Value Reference Range Interpretation Comments Hepatitis B Core IgM Antibody (test code = 50494-7) Negative Ne gative [facility]um hepatitis C virus antibody mgncnvenn1661-23-95 08:30:00* Test Item Value Reference Range Interpretation Comments Hepatitis C Antibody (test code = 47921-7) <0.1 0.0-0.9 Negative: < 0.8 Indeterminate: 0.8 - 0.9 Positive: > 0.9 The CDC recommends that a positive HCV antibody result be followed up with a HCV Nucleic Acid Amplification test (411222).Performed at: [facility] [address] [place] [address] [id number] Director: David Santos MD, Phone: [phone] Baptist Medical Center – Harlingenerum or plasma hepatitis A virus IgM antibody detection by axchnywnuem9581-91-53 08:30:00* Test Item Value Reference Range Interpretation Comments Hepatitis A IgM Antibody (test code = 31330-8) Negative Negativ e [facility] or plasma hepatitis B virus surface antigen detection by mudwdcxgsbs5364-73-31 08:30:00* Test Item Value Reference Range Interpretation Comments Hepatitis B Surface Antigen (test code = 5196-1) Negative Negat flower [facility] or plasma hepatitis B virus core IgM antibody detection by bkmkieoxign0290-61-64 08:30:00* Test Item Value Reference Range Interpretation Comments Hepatitis B Core IgM Antibody (test code = 40699-6) Negative Ne gative [facility]ling[facility]um hepatitis C virus antibody mituahaik2496-87-23 08:30:00* Test Item Value Reference Range Interpretation Comments Hepatitis C Antibody (test code = 03511-6) <0.1 0.0-0.9 Negative: < 0.8 Indeterminate: 0.8 - 0.9 Positive: > 0.9 The CDC recommends that a positive HCV antibody result be followed up with a HCV Nucleic Acid Amplification test (886548).Performed at: [facility] [address] [place] [address] [id number] Director: David Santos MD, Phone: [phone] Pinto General HospitalBlaustin hospital and clinic leukocytes automated count (number/volume)2019-10-08 05:30:00* Test Item Value Reference Range Interpretation Comments White Blood Count (test code = 6690-2) 4.33 4.8-10.8 [facility] HospitalBlaustin [facility] clinic erythrocytes automated count (number/volume)2019-10-08 05:30:00* Test Item Value Reference Range Interpretation Comments Red Blood Count (test code = 789-8) 2.66 4.3-5.7 [facility] HospitalBlood hemoglobin measurement (moles/volume)2019-10-08 05:30:00* Test Item Value Reference Range Interpretation Comments Hemoglobin (test code = 03274-5) 10.0 14.0-18.0 [facility] HospitalAutomated blood hematocrit (volume fraction)2019-10-08 05:30:00* Test Item Value Reference Range Interpretation Comments Hematocrit (test code = 4544-3) 26.2 38.2-49.6 [facility] HospitalAutomated erythrocyte mean corpuscular ielwzu1019-97-95 05:30:00* Test Item Value Reference Range Interpretation Comments Mean Corpuscular Volume (test code = 787-2) 98.5 81-99 [facility] HospitalAutomated erythrocyte mean corpuscular hemoglobin (mass per erythrocyte)2019-10-08 05:30:00* Test Item Value Reference Range Interpretation Comments Mean Corpuscular Hemoglobin (test code = 785-6) 37.6 28-32 [facility] HospitalAutomated erythrocyte mean corpuscular hemoglobin concentration measurement (mass/volume)2019-10-08 05:30:00* Test Item Value Reference Range Interpretation Comments Mean Corpuscular Hemoglobin Concent (test code = 786-4) 38.2 31-35 [facility] HospitalRDW RsiHo-Ksv2667-52-15 05:30:00* Test Item Value Reference Range Interpretation Comments Red Cell Distribution Width (test code = 53265-3) 15.3 11.7 -14.4 [facility] HospitalAutomated blood platelet count (count/volume)2019-10-08 05:30:00* Test Item Value Reference Range Interpretation Comments Platelet Count (test code = 777-3) 49 140-360 Results repeated and called to Yina Wise at 0637 on 10/08/19 by Kacey Arita . Read back and verified.[facility] HospitalAutatrium health cabarrused blood segmented neutrophil count as percentage of total morzezhjph1507-62-63 05:30:00 * Test Item Value Reference Range Interpretation Comments Neutrophils (%) (Auto) (test code = 92180-5) 71.8 38.7-80.0 [facility] HospitalAutomated blood lymphocyte count as percentage ot total fmgjqoylba7448-08-09 05:30:00* Test Item Value Reference Range Interpretation Comments Lymphocytes (%) (Auto) (test code = 736-9) 18.5 18.0-39.1 [facility] HospitalAutomated blood monocyte count as percentage of total ofvfwlqdmu6637-74-22 05:30:00* Test Item Value Reference Range Interpretation Comments Monocytes (%) (Auto) (test code = 5905-5) 8.5 4.4-11.3 [facility] HospitalAutomated blood eosinophil count as percentage of total fpjwctfaqk0253-29-72 05:30:00* Test Item Value Reference Range Interpretation Comments Eosinophils (%) (Auto) (test code = 713-8) 0.5 0.0-6.0 [facility] HospitalAutomated blood basophil count as percentage of total ayhwhdqqtq7865-57-82 05:30:00* Test Item Value Reference Range Interpretation Comments Basophils (%) (Auto) (test code = 706-2) 0.0 0.0-1.0 [facility] HospitalFluoroscopic procedure less than one hour famkdwso7226-06-18 05:30:00* Test Item Value Reference Range Interpretation Comments IM GRANULOCYTES % (test code = IM GRANULOCYTES %) 0.7 0.0- 1.0 [facility] HospitalAutomated blood neutrophil count 2019-10-08 05:30:00* Test Item Value Reference Range Interpretation Comments Neutrophils # (Auto) (test code = 751-8) 3.1 2.1-6.9 [facility] HospitalBlood lymphocytes count (number/volume) 2019-10-08 05:30:00* Test Item Value Reference Range Interpretation Comments Lymphocytes # (Auto) (test code = 88745-6) 0.8 1.0-3.2 [facility] HospitalBlood monocytes automated count (number/volume)2019-10-08 05:30:00* Test Item Value Reference Range Interpretation Comments Monocytes # (Auto) (test code = 742-7) 0.4 0.2-0.8 [facility] HospitalAutomated blood eosinophil count 2019-10-08 05:30:00* Test Item Value Reference Range Interpretation Comments Eosinophils # (Auto) (test code = 711-2) 0.0 0.0-0.4 [facility] HospitalAutomated blood basophil count (count/volume)2019-10-08 05:30:00* Test Item Value Reference Range Interpretation Comments Basophils # (Auto) (test code = 704-7) 0.0 0.0-0.1 [facility] HospitalFluoroscopic procedure less than one hour snancihx8601-81-24 05:30:00* Test Item Value Reference Range Interpretation Comments Absolute Immature Granulocyte (auto (eric t code = Absolute Immature Granulocyte (auto) 0.03 0-0.1 [facility] or plasma sodium measurement (moles/volume)2019-10-08 05:30:00* Test Item Value Reference Range Interpretation Comments Sodium Level (test code = 2951-2) 143 136-145 [facility]enerum or plasma potassium measurement (moles/volume)2019-10-08 05:30:00* Test Item Value Reference Range Interpretation Comments Potassium Level (test code = 2823-3) 3.4 3.5-5.1 [facility] or plasma chloride measurement (moles/volume)2019-10-08 05:30:00* Test Item Value Reference Range Interpretation Comments Chloride Level (test code = 2075-0) 110 98-107 [facility]enerum or plasma carbon dioxide, total measurement (moles/volume)2019-10-08 05:30:00* Test Item Value Reference Range Interpretation Comments Carbon Dioxide Level (test code = 2028-9) 26 22-29 [facility]um or plasma anion kxm8134-46-18 05:30:00* Test Item Value Reference Range Interpretation Comments Anion Gap (test code = 43318-1) 10.4 8-16 [facility] or plasma urea nitrogen measurement (mass/volume)2019-10-08 05:30:00* Test Item Value Reference Range Interpretation Comments Blood Urea Nitrogen (test code = 3094-0) 7 7-26 [facility] or plasma creatinine measurement (mass/volume)2019-10-08 05:30:00* Test Item Value Reference Range Interpretation Comments Creatinine (test code = 2160-0) 0.68 0.72-1.25 [facility] or plasma urea nitrogen/creatinine mass uspqz9085-00-28 05:30:00* Test Item Value Reference Range Interpretation Comments BUN/Creatinine Ratio (test code = 3097-3) 10 6-25 [facility] HospitalEstimated glomerular filtration rate (GFR) liscxsionqses7395-82-61 05:30:00* Test Item Value Reference Range Interpretation Comments Estimat Glomerular Filtration Rate (test code = 846132735) > 60 >60 Ranges were taken from the National Kidney Disease Education Program and the [facility] Kidney Foundation literature.Reference ranges:60 or greater: Jfchdf47-96 ( for 3 consecutive months): Chronic kidney disease 15 or less: Kidney failurePalo Pinto General HospitalGlucose ywyvorlphaj6816-60-80 05:30:00* Test Item Value Reference Range Interpretation Comments Glucose Level (test code = BOA6525) 107 74-118 [facility] or plasma calcium measurement (mass/volume)2019-10-08 05:30:00* Test Item Value Reference Range Interpretation Comments Calcium Level (test code = 31587-4) 8.0 8.4-10.2 [facility] HospitalBlood platelets count by estimate (number/volume)2019-10-07 05:25:00* Test Item Value Reference Range Interpretation Comments Platelet Estimate (test code = 92722-2) MODERATELY DECREASED [facility] HospitalPlatelet yjsaqtxknm4646-98-24 05:25:00* Test Item Value Reference Range Interpretation Comments Platelet Morphology Comment (test code = 49111-3) FEW EDTA CLUMPING [facility] HospitalBlood anisocytosis detection by light okcdsyeyig7259-27-07 05:25:00* Test Item Value Reference Range Interpretation Comments Anisocytosis (test code = 702-1) SLIGHT [facility] HospitalBlaustin hospital and clinic dacrocytes detection by light redqcqcpkr9763-81-31 05:25:00* Test Item Value Reference Range Interpretation Comments Tear Drop Cells (test code = 7791-7) FEW [facility] HospitalBlood ovalocytes detection by light xanliseova7315-17-92 05:25:00* Test Item Value Reference Range Interpretation Comments Ovalocytes (test code = 774-0) FEW [facility] HospitalRBC bcxugmfhad6252-13-73 05:25:00* Test Item Value Reference Range Interpretation Comments Red Cell Morphology Comment (test code = 6742-1) NORMAL [facility] or plasma total bilirubin measurement (mass/volume)2019-10-07 05:25:00* Test Item Value Reference Range Interpretation Comments Total Bilirubin (test code = 1975-2) 3.2 0.2-1.2 [facility] HospitalFluoroscopic procedure less than one hour ilqoufex0039-19-68 05:25:00* Test Item Value Reference Range Interpretation Comments Aspartate Amino Transf (AST/SGOT) (test code = Aspartate Amino Transf (AST/SGOT)) 35 5-34 [facility] or plasma alanine aminotransferase measurement (enzymatic activity/volume)2019-10-07 05:25:00* Test Item Value Reference Range Interpretation Comments Alanine Aminotransferase (ALT/SGPT) (test code = 1742-6) 25 0-55 [facility] or plasma protein measurement (mass/volume)2019-10-07 05:25:00* Test Item Value Reference Range Interpretation Comments Total Protein (test code = 2885-2) 7.0 6.5-8.1 [facility] or plasma albumin measurement (mass/volume)2019-10-07 05:25:00* Test Item Value Reference Range Interpretation Comments Albumin (test code = 1751-7) 2.9 3.5-5.0 [facility] HospitalPlasma globulin measurement (mass/volume) 2019-10-07 05:25:00* Test Item Value Reference Range Interpretation Comments Globulin (test code = 51698-3) 4.1 2.3-3.5 [facility] or plasma albumin/globulin mass kjvmi3322-90-69 05:25:00* Test Item Value Reference Range Interpretation Comments Albumin/Globulin Ratio (test code = 1759-0) 0.7 0.8-2.0 [facility] or plasma alkaline phosphatase measurement (enzymatic activity/volume)2019-10-07 05:25:00* Test Item Value Reference Range Interpretation Comments Alkaline Phosphatase (test code = 6768-6) 67 40-150 [facility] HospitalProthrombin time (PT) in platelet poor plasma by coagulation icuht3202-32-14 12:26:00* Test Item Value Reference Range Interpretation Comments Prothrombin Time (test code = 5902-2) 18.7 11.9-14.5 [facility] HospitalINR in Platelet poor plasma by Coagulation mgbav2758-25-67 12:26:00* Test Item Value Reference Range Interpretation Comments Prothromb Time International Ratio (test code = 6301-6) 1.46 Oral Anticoagulant Therapy INR Values:1. Low Intensity Therapy 1.5 - 2.02 . Moderate Intensity Therapy 2.0 - 3.03. High Intensity Therapy(1) 2.5 - 3. 54. High Intensity Therapy(2) 3.0 - 4.05. Panic Value INR > 5.0 [facility] HospitalFluoroscopic procedure less than one hour tdoyxzkn5815-82-77 22:40:00* Test Item Value Reference Range Interpretation [...] from individuals suspected of COVID-19 by their [facility] provider. This test has not been Food [...] under 564(g) of the ACT.Testing performed by [facility] [place] [id number] Pinto General HospitalCT ABDOMEN/PELVIS H1602-00-79 21:47:00 [place] [address] Patient Name: FIONA GREEN MR #: [id number] : 1970 Age/Sex: 49/M Req #: [id number] [facility] Physician: Ordered by: JAKE GRIMM DO Report #: [id number] Location: [facility]/Bed: Procedure: [id number] CT/CT ABD OMEN/PELVIS W Exam Date: 10/05/19 Exam Time: 2014 REPORT STATUS: Signed EXAM: CT Abd omen and Pelvis WITH contrast INDICATION: Abdominal pain, purple hernia COMPARISON: None. TECHNIQUE: Abdomen and pelvis were scanned utilizing a m Phloronoltector helical scanner from the lung base to [...] T O: JAKE GRIMM DO Urine color [id number] 18:35:00* Test Item Value Reference Range Interpretation Comments Urine Color (test code = 5778-6) ORANGE YELLOW [facility] [id number] 18:35:00* Test Item Value Reference Range Interpretation Comments Urine Clarity (test code = 68017-2) CLEAR [facility]AR [facility] by Test strip 2019-10-05 18:35:00* Test Item Value Reference Range Interpretation Comments Urine Specific [place] (test code = 5811-5) 1.025 1.010-1.02 5 [facility] by automated test [id number] 18:35:00* Test Item Value Reference Range Interpretation Comments Urine pH (test code = 63233-1) 6 5-7 [facility] esterase detection by [id number] 18:35:00* Test Item Value Reference Range Interpretation Comments Urine Leukocyte Esterase (test code = 5799-2) NEGATIVE NEGATIVE [facility] nitrite [id number] 18:35:00* Test Item Value Reference Range Interpretation Comments Urine Nitrite (test code = 99514-6) NEGATIVE NEGATIVE [facility] protein measurement by test strip (mass/volume)2019-10-05 18:35:00* Test Item Value Reference Range Interpretation Comments Urine Protein (test code = 5804-0) NEGATIVE NEGATIVE [facility] glucose [id number] 18:35:00* Test Item Value Reference Range Interpretation Comments Urine Glucose (UA) (test code = 2349-9) NEGATIVE NEGATIVE [facility] ketones detection by automated test [id number] 18:35:00* Test Item Value Reference Range Interpretation Comments Urine Ketones (test code = 12718-3) NEGATIVE NEGATIVE [facility] urobilinogen measurement by test strip (mass/volume)2019-10-05 18:35:00* Test Item Value Reference Range Interpretation Comments Urine Urobilinogen (test code = 14743-2) 1 0.2-1 [facility] total bilirubin measurement (mass/volume)2019-10-05 18:35:00* Test Item Value Reference Range Interpretation Comments Urine Bilirubin (test code = 1978-6) SMALL NEGATIVE [facility] erythrocytes [id number] 18:35:00* Test Item Value Reference Range Interpretation Comments Urine Blood (test code = 80835-6) NEGATIVE NEGATIVE [facility] urine sediment leukocyte count by microscopy (number/high power field)2019-10-05 18:35:00* Test Item Value Reference Range Interpretation Comments Urine WBC (test code = 5821-4) 0-5 0-5 [facility] detection in urine sediment by light [id number] 18:35:00* Test Item Value Reference Range Interpretation Comments Urine RBC (test code = 68120-5) 0-5 0-5 [facility] detection in urine sediment by light [id number] 18:35:00* Test Item Value Reference Range Interpretation Comments Urine Bacteria (test code = 90064-3) RARE NONE [facility]Epithelial cells detection in urine sediment by light [id number] 18:35:00* Test Item Value Reference Range Interpretation Comments Urine Epithelial Cells (test code = 82119-8) RARE NONE [facility] color [id number] 18:35:00* Test Item Value Reference Range Interpretation Comments Urine Color (test code = 5778-6) ORANGE YELLOW [facility] qetpylm9286-01-42 18:35:00* Test Item Value Reference Range Interpretation Comments Urine Clarity (test code = 68928-1) [facility]AR [facility]AR [facility] Urine by Test strip 2019-10-05 18:35:00* Test Item Value Reference Range Interpretation Comments Urine Specific [place] (test code = 5811-5) 1.025 1.010-1.02 5 [facility] measurement by automated test [id number] 18:35:00* Test Item Value Reference Range Interpretation Comments Urine pH (test code = 42433-3) 6 5-7 [facility] leukocyte esterase detection by [id number] 18:35:00* Test Item Value Reference Range Interpretation Comments Urine Leukocyte Esterase (test code = 5799-2) NEGATIVE NEGATIVE [facility] nitrite zmrpbrrvo4291-15-62 18:35:00* Test Item Value Reference Range Interpretation Comments Urine Nitrite (test code = 68130-3) NEGATIVE NEGATIVE [facility] protein measurement by test strip (mass/volume)2019-10-05 18:35:00* Test Item Value Reference Range Interpretation Comments Urine Protein (test code = 5804-0) NEGATIVE NEGATIVE [facility] glucose [id number] 18:35:00* Test Item Value Reference Range Interpretation Comments Urine Glucose (UA) (test code = 2349-9) NEGATIVE NEGATIVE [facility] ketones detection by automated test [id number] 18:35:00* Test Item Value Reference Range Interpretation Comments Urine Ketones (test code = 97986-9) NEGATIVE NEGATIVE [facility] urobilinogen measurement by test strip (mass/volume)2019-10-05 18:35:00* Test Item Value Reference Range Interpretation Comments Urine Urobilinogen (test code = 78399-4) 1 0.2-1 [facility] total bilirubin measurement (mass/volume)2019-10-05 18:35:00* Test Item Value Reference Range Interpretation Comments Urine Bilirubin (test code = 1978-6) SMALL NEGATIVE [facility] erythrocytes [id number] 18:35:00* Test Item Value Reference Range Interpretation Comments Urine Blood (test code = 07910-7) NEGATIVE NEGATIVE [facility]Autom[facility] urine sediment leukocyte count by microscopy (number/high power field)2019-10-05 18:35:00* Test Item Value Reference Range Interpretation Comments Urine WBC (test code = 5821-4) 0-5 0-5 [facility]Erythrocytes detection in urine sediment by light [id number] 18:35:00* Test Item Value Reference Range Interpretation Comments Urine RBC (test code = 55231-4) 0-5 0-5 [facility] detection in urine sediment by light [id number] 18:35:00* Test Item Value Reference Range Interpretation Comments Urine Bacteria (test code = 53175-3) RARE NONE [facility] HospitalEpithelial cells detection in urine sediment by light moyzapwjtm1744-04-03 18:35:00* Test Item Value Reference Range Interpretation Comments Urine Epithelial Cells (test code = 30920-7) RARE NONE [facility] color ntoxeflpnupty8278-39-75 18:35:00* Test Item Value Reference Range Interpretation Comments Urine Color (test code = 5778-6) ORANGE YELLOW [facility] [id number] 18:35:00* Test Item Value Reference Range Interpretation Comments Urine Clarity (test code = 27076-7) CLEAR CLEAR [facility] Urine by Test strip 2019-10-05 18:35:00* Test Item Value Reference Range Interpretation Comments Urine Specific [place] (test code = 5811-5) 1.025 1.010-1.02 5 [facility] pH measurement by automated test gnrun8327-29-00 18:35:00* Test Item Value Reference Range Interpretation Comments Urine pH (test code = 06110-3) 6 5-7 [facility] leukocyte esterase detection by [id number] 18:35:00* Test Item Value Reference Range Interpretation Comments Urine Leukocyte Esterase (test code = 5799-2) NEGATIVE NEGATIVE [facility] nitrite [id number] 18:35:00* Test Item Value Reference Range Interpretation Comments Urine Nitrite (test code = 54116-1) NEGATIVE NEGATIVE [facility] protein measurement by test strip (mass/volume)2019-10-05 18:35:00* Test Item Value Reference Range Interpretation Comments Urine Protein (test code = 5804-0) NEGATIVE NEGATIVE [facility] glucose [id number] 18:35:00* Test Item Value Reference Range Interpretation Comments Urine Glucose (UA) (test code = 2349-9) NEGATIVE NEGATIVE [facility] ketones detection by automated test [id number] 18:35:00* Test Item Value Reference Range Interpretation Comments Urine Ketones (test code = 93770-7) NEGATIVE NEGATIVE [facility] urobilinogen measurement by test strip (mass/volume)2019-10-05 18:35:00* Test Item Value Reference Range Interpretation Comments Urine Urobilinogen (test code = 03107-0) 1 0.2-1 [facility] total bilirubin measurement (mass/volume)2019-10-05 18:35:00* Test Item Value Reference Range Interpretation Comments Urine Bilirubin (test code = 1978-6) SMALL NEGATIVE [facility] erythrocytes [id number] 18:35:00* Test Item Value Reference Range Interpretation Comments Urine Blood (test code = 02243-5) NEGATIVE NEGATIVE [facility] HospitalAutom[facility] urine sediment leukocyte count by microscopy (number/high power field)2019-10-05 18:35:00* Test Item Value Reference Range Interpretation Comments Urine WBC (test code = 5821-4) 0-5 0-5 [facility]Ery[facility]rocytes detection in urine sediment by light [id number] 18:35:00* Test Item Value Reference Range Interpretation Comments Urine RBC (test code = 71083-0) 0-5 0-5 [facility] detection in urine sediment by light xhxuwzyqjq6804-00-92 18:35:00* Test Item Value Reference Range Interpretation Comments Urine Bacteria (test code = 36118-6) RARE NONE [facility] HospitalEpithelial cells detection in urine sediment by light wdykmpfbds3786-22-05 18:35:00* Test Item Value Reference Range Interpretation Comments Urine Epithelial Cells (test code = 05742-3) RARE NONE [facility]
[2020-02-14 13:50] LABS: BASOPHILS % 0.6 % (0.0-1.0); EOSINOPHILS # (AUTO) 0.2 (0.0-0.4); EOSINOPHILS % 5.5 % (0.0-6.0); LYMPHOCYTES # (AUTO) 0.8 (1.0-3.2); LYMPHOCYTES % 21.7 % (18.0-39.1); MEAN CORPUSCULAR HGB CONC 34.4 g/dL (31-35); MEAN CORPUSCULAR VOLUME 87.2 fL (81-99); MONOCYTES # (AUTO) 0.3 (0.2-0.8); MONOCYTES % 9.3 % (4.4-11.3); NEUTROPHILS # (AUTO) 2.2 (2.1-6.9); NEUTROPHILS % 62.6 % (38.7-80.0); RED BLOOD COUNT 3.67 x10e6/uL (4.3-5.7); RED CELL DISTRIBUTION WIDTH 15.9 % (11.7-14.4)
[2020-02-14 14:02] LABS: ALANINE AMINOTRANSFERASE 22 IU/L (0-55); ALBUMIN 3.9 g/dL (3.5-5.0); ALBUMIN/GLOBULIN RATIO 0.9 (0.8-2.0); ALKALINE PHOSPHATASE 88 IU/L (40-150); ANION GAP 14.5 mmol/L (8-16); BLOOD UREA NITROGEN 12 mg/dL (7-26); BUN/CREATININE RATIO 16 (6-25); CALCIUM 8.6 mg/dL (8.4-10.2); CARBON DIOXIDE 25 mmol/L (22-29); CHLORIDE 99 mmol/L (98-107); CREATININE, SERUM 0.75 mg/dL (0.72-1.25); EST GLOMERULAR FILTRATION RATE > 60 ML/MIN (60-); GLUCOSE 126 mg/dL (74-118); POTASSIUM 3.5 mmol/L (3.5-5.1); SODIUM 135 mmol/L (136-145)
--- NOTE | 2020-02-14 14:03 | Emergency Department Note ---
History of Present Illnes History of Present Illness Chief Complaint: General Medicine Complaints History of Present Illness This is a 49 year old male arrives to the ED after his primary care doctor told him his lab work is abnormal . Chief Complaint Comment PATIENT IN FROM HOME; STATES WENT TO [facility] AND GOT LABS DRAWN AND WAS SENT DUE TO LOW PLATELET COUNTS. PATIENT STATES THAT HE HAS A HISTORY OF CIRRHOSIS, AND LAST HAD ALCOHOL ON SUNDAY. PATIENT DENIES ANY PAIN, BUT STATES THAT HE FEELS ANXIOUS DUE TO ALCOHOL WITHDRAWAL. Historian: Patient Arrival Mode: Car Progression: unchanged Chronicity: new Past Medical/Family History Physician Review I have reviewed the patient's past medical and family history. Any updates have been documented here. Past Medical History Recent Fever: No Clinical Suspicion of Infectio: No New/Unexplained Change in Ment: No Past Medical History: Hypertension, Liver Disease, Anxiety Other Medical History: ALCOHOL ABUSE CIRRHOSIS PORTAL HYPERTENSION Past Surgical History: Cholecysctectomy, Hernia Repair Social History Physically hurt or threatened: No Review of Systems Review of Systems Constitutional: Reports no symptoms EENTM: Reports no symptoms Cardiovascular: Reports no symptoms Respiratory: Reports no symptoms Gastrointestinal: Reports no symptoms Genitourinary: Reports no symptoms Musculoskeletal: Reports no symptoms Integumentary: Reports no symptoms Neurological: Reports no symptoms Psychological: Reports no symptoms Endocrine: Reports no symptoms Hematological/Lymphatic: Reports no symptoms Physical Exam Related Data Allergies: Coded Allergies: No Known Allergies (Unverified , 10/05/19) Triage Vital Signs Vital Signs Date Time Temp Pulse Resp B/P (MAP) Pulse Ox O2 Delivery O2 Flow Rate FiO2 02/14/20 13:13 96.6 79 18 151/74 98 Room Air Vital signs reviewed: Yes Physical Exam CONSTITUTIONAL Constitutional: Present well-developed, Present well-nourished HENT HENT: Present normocephalic, Present atraumatic, Present oropharynx clear/moist, Present nose normal HENT L/R: Present left ext ear normal, Present right ext ear normal EYES Eyes: Reports PERRL, Reports conjunctivae normal NECK Neck: Present ROM normal PULMONARY Pulmonary: Present effort normal, Present breath sounds normal CARDIOVASCULAR Cardiovascular: Present regular rhythm, Present heart sounds normal, Present capillary refill normal, Present normal rate GASTROINTESTINAL Abdominal: Present soft, Present nontender, Present bowel sounds normal GENITOURINARY Genitourinary: Present exam deferred SKIN Skin: Present warm, Present dry MUSCULOSKELETAL Musculoskeletal: Present ROM normal NEUROLOGICAL Neurological: Present alert, Present oriented x 3, Present no gross motor or sensory deficits PSYCHOLOGICAL Psychological: Present mood/affect normal, Present judgement normal Results Laboratory Laboratory Laboratory Tests Test 02/14/20 13:20 Imaging Imaging results reviewed: Yes Impressions IMPRESSION: Cirrhotic liver morphology and findings compatible with portal hypertension: Small volume ascites, esophageal/splenic varices, recanalization of the umbilical vein and clif[place] appearance of the mesenteric fat suggestive of congestion. Assessment & Plan Medical Decision Making MDM + recent reduction in alcohol use from chronic abuse - anxiety +nausea Denies tactile, auditory, and visual hallucinations. AAOx3. Denies history of withdrawal seizures, ICU admissions, DTs. Workup: Including but not limited to POCT glucose, CBC, BMP Patient arrived with normal cytopenia, platelets are 42, no indication for transfusion. Spoke to patient at length about alcohol abuse and outpatient rehabilitation referral given. Assessment & Plan Final Impression: (1) Thrombocytopenia Depart Disposition: HOME, SELF-CARE Last Vital Signs Date Time Temp Pulse Resp B/P (MAP) Pulse Ox O2 Delivery O2 Flow Rate FiO2 02/14/20 13:13 96.6 79 18 151/74 98 Room Air Home Meds Active Scripts Propranolol Hcl (PROPRANOLOL HCL) 10 Mg Tablet, 10 MG PO QID, #20 TAB Prov:JAKE GRIMM DO 01/05/20 Reported Medications Lactulose (LACTULOSE) 20 Gm/30 Ml Solution, 30 ML PO BID for 30 Days, EACH 10/08/19 Tramadol Hcl (ULTRAM) 50 Mg Tablet, 50 MG PO Q8HR PRN for MODERATE PAIN (4-6), #15 TAB 10/08/19 JAKE GRIMM DO Feb 14, 2020 14:03
[2020-02-14 14:09] LABS: PLATELET COUNT 43 x10e3/uL (140-360)
[2020-02-14 14:51] LABS: LARGE PLATELETS FEW; PLATELET CLUMPS FEW; PLATELET ESTIMATE MARKEDLY DECREASED
[2020-02-14 14:52] LABS: ANISOCYTOSIS SLIGHT; HYPOCHROMASIA SLIGHT
--- NOTE | 2020-02-14 15:28 | Diagnostic Imaging Report ---
EXAM: CT Abdomen and Pelvis WITH contrast INDICATION: Abdominal pain. ^Y ^liver cirrohsis ^[id number] ^1450 COMPARISON: None. TECHNIQUE: Abdomen and pelvis were scanned utilizing a multidetector helical scanner from the lung base to the pubic symphysis after administration of IV contrast. Coronal and sagittal reformations were obtained. Routine protocol was performed. Scan was performed when during portal venous phase. IV CONTRAST: 100 mL of Isovue 370 ORAL CONTRAST: None COMPLICATIONS: None RADIATION DOSE: Total DLP: 577 mGy*cm Estimated effective dose: (DLP x 0.015 x size factor) mSv CTDIvol has been reviewed. It is below the limits set by the Radiation Protocol Committee (RPC). Dose modulation, iterative reconstruction, and/or weight based adjustment of the mA/kV was utilized to reduce the radiation dose to as low as reasonably achievable. FINDINGS: LINES and TUBES: None. LOWER THORAX: There is bibasilar atelectasis. HEPATOBILIARY: The liver is enlarged measuring up to 21 cm in craniocaudal dimension with nodular hepatic borders. No focal hepatic lesions. No biliary ductal dilation. GALLBLADDER: There are cholecystectomy clips. SPLEEN: The spleen is enlarged measuring up to 19 cm. No focal splenic lesions. PANCREAS: No focal masses or ductal dilatation. ADRENALS: No adrenal nodules KIDNEYS/URETERS: Kidneys enhance symmetrically. No hydronephrosis. No cystic or solid mass lesions. No stones. GI TRACT: No abnormal distention, wall thickening, or evidence of bowel obstruction. Appendix is normal. PELVIC ORGANS/BLADDER: Unremarkable. LYMPH NODES: No lymphadenopathy. VESSELS: The abdominal aorta is major abdomen and pelvic branches have normal caliber and enhancement. There are esophageal varices, splenorenal shunting and recanalization of the umbilical vein. PERITONEUM / RETROPERITONEUM: There is small volume ascites and diffuse [place] appearance of the mesenteric fat. BONES: There are mild degenerative changes in the spine. SOFT TISSUES: Unremarkable. IMPRESSION: Cirrhotic liver morphology and findings compatible with portal hypertension: Small volume ascites, esophageal/splenic varices, recanalization of the umbilical vein and [place] appearance of the mesenteric fat suggestive of congestion. Signed by: Venus Buckner MD on 02/14/2020 3:25 PM
[2020-02-14 16:08] VITALS: BP 147/68
[2020-02-14] MEDS ORDERED: IOPAMIDOL 370 MG/ML 200 ML INFUS..BTL INJ ONE (18:12)
[2020-02-14] MEDS ORDERED: SODIUM CHLORIDE 0.9% 50ML 50 ML ONE (18:12)
== END 2020-02-14 16:18 | disposition home or self-care (01) ==
LOC: ER 13:38
DX: D69.6 Thrombocytopenia, unspecified (principal); I10 Essential (primary) hypertension; K76.9 Liver disease, unspecified; F41.9 Anxiety disorder, unspecified
CPT/HCPCS: 36415; 74177; 80053; 82140; 85025; 86850; 86900; 99283; Q9967